=== PATIENT | female | born 1970 | race Caucasian/White ===

== ENCOUNTER 2017-11-11 15:16 | Emergency (ER) | payer MEDICAID, SELFPAY ==
[2017-11-11 15:18] VITALS: BP 123/73; PULSE 84; RESP 17; TEMP 36.6; O2SAT 96; BMI 35.8
--- NOTE | 2017-11-11 15:27 | EKG12_ITS ---
Test Reason : CP Blood Pressure : / mmHG Vent. Rate : 085 BPM Atrial Rate : 085 BPM P-R Int : 118 ms QRS Dur : 080 ms QT Int : 390 ms P-R-T Axes : 065 088 056 degrees QTc Int : 464 ms Normal sinus rhythm Low voltage QRS Borderline ECG Confirmed by ZULY WALTERS, JEFFREY ([id number]), photography editor RAFAEL SKINNER ([id number]) on 11/13/2017 1:22:00 PM Referred By: MARCELLE/MERRILL Confirmed By:JEFFREY CARUSO MD
--- NOTE | 2017-11-11 15:28 | ED.VISSUMM ---
- ER Visit Summary Date of Service: 11/11/17 Chief Complaint: Chest pain and headache History of Present Illness: The patient is a 47 F presenting for evaluation secondary chest pain headache and hypertension. Patient states that since yesterday she has been dealing with a headache and poorly controlled hypertension with blood pressures in the 180 systolic. Patient states that she woke up this morning and her blood pressure was also in the 180s. Patient states that she took her blood pressure medicines and then went back to sleep. She reports that since about 11:00 today she has had a continuous chest pain with radiation to her left arm. She states that associated with diaphoresis nausea and lightheadedness. There is no exacerbating or relieving factors associated with this. Patient states that she does have a history of coronary artery disease, most recent cardiac workup was within the last 2 years and she sees hospital attendant in [place]. Denies any recent infectious signs or symptoms. Review of systems otherwise negative. Physical Examination: Vital signs are within normal limits, patient is afebrile. General: Patient is well-nourished well-developed and in no acute distress. Head: Normocephalic, atraumatic Eyes: Pupils equal round and reactive bilaterally, extra occular motion intact bialterally ENT: Moist mucous membranes Neck: Supple, no lymphadenopathy, no JVD, no meningismus CVS: Heart regular rate and rhythm, no murmurs, rubs or gallops, radial pulses 2+ bilaterally Resp: Respirations nondistressed, lung sounds mild wheezing Abdomen: Soft, nontender, nondistended, no palpable masses, normal bowel sounds Back: Nontender Extremities: Nontender, atraumatic, active full range of motion, no peripheral edema Skin: warm, no rashes, no petechia Neuro: Alert and oriented x 4, CN 2-12 intact, no lateralizing neurological defecits Psyc: Normal affect Test Results: EKG shows a sinus rhythm [address] segments normal T waves and some artifact laterally. CBC chemistry troponin unremarkable. Chest x-ray negative. Delta troponin found to be negative. Emergency Department Course and Treatment: Patient presented for evaluation secondary chest pain. She had only had about 3 or 4 hours chest pain prior to arrival. Initial workup was found to be negative, she does have risk factors of diabetes and hypertension as well as smoking. Her symptoms seem rather atypical however, and she has had cardiac workup within the last 2 years so I believe that a second troponin will rule the patient out adequately. 3 hour troponin was performed and was found to be negative. At this point I believe the patient's pain not to be cardiac in that she can safely be discharged. Patient will follow up with her hospital attendant. All questions answered patient was discharged Disposition: Discharge Impression: 1 chest pain This note was generated with Vostu dictation software. It may contain incorrect words, spelling, and punctuation that were not noted in review of the chart prior to signing ED Disposition - Plan for ED Patient: Disposition: Home or Assisted Living Chief Complaint: Chest Pain Diagnosis: Chest pain Instructions: ED Chest Pain NonCardiac Referrals: Town Doctor,Out of [NON-STAFF] - Additional Instructions: Followup with your PCP
[2017-11-11] MEDS: Aspirin 81 MG TAB.CHEW 324 MG PO (15:35)
--- NOTE | 2017-11-11 15:35 | RAD_ITS ---
STUDY: X-RAY CHEST REASON FOR EXAM: Female, 47 years old. Chest pain. TECHNIQUE: PA and lateral views of the chest. COMPARISON: Comparison is made with prior examination dated March 26, 2016. FINDINGS: EKG electrodes are seen. Stable calcified granuloma in the right midlung. There is no demonstrated pleural abnormality. Normal size heart. Normal mediastinum and mark. Normal visualized pulmonary arteries. Normal visualized aortic arch and descending thoracic aorta. There is demineralization of the osseous structures. Normal visualized ribs, clavicles, and shoulders. There is no demonstrated abnormality of the visualized soft tissue structures of the upper abdomen. RAD/Chest PA and Lateral IMPRESSION: No acute abnormality is seen. Electronically Signed: Dwight Martinez MD at 16:00 EST Tel [phone], Service support ,
--- NOTE | 2017-11-11 15:35 | ED.DCSUM_ITS ---
- ER Visit Summary Date of Service: 11/11/17 Chief Complaint: Chest pain and headache History of Present Illness: The patient is a 47 F presenting for evaluation secondary chest pain headache and hypertension. Patient states that since yesterday she has been dealing with a headache and poorly controlled hypertension with blood pressures in the 180 systolic. Patient states that she woke up this morning and her blood pressure was also in the 180s. Patient states that she took her blood pressure medicines and then went back to sleep. She reports that since about 11:00 today she has had a continuous chest pain with radiation to her left arm. She states that associated with diaphoresis nausea and lightheadedness. There is no exacerbating or relieving factors associated with this. Patient states that she does have a history of coronary artery disease, most recent cardiac workup was within the last 2 years and she sees superintendent sanitation in [place]. Denies any recent infectious signs or symptoms. Review of systems otherwise negative. Physical Examination: Vital signs are within normal limits, patient is afebrile. General: Patient is well-nourished well-developed and in no acute distress. Head: Normocephalic, atraumatic Eyes: Pupils equal round and reactive bilaterally, extra occular motion intact bialterally ENT: Moist mucous membranes Neck: Supple, no lymphadenopathy, no JVD, no meningismus CVS: Heart regular rate and rhythm, no murmurs, rubs or gallops, radial pulses 2 + bilaterally Resp: Respirations nondistressed, lung sounds mild wheezing Abdomen: Soft, nontender, nondistended, no palpable masses, normal bowel sounds Back: Nontender Extremities: Nontender, atraumatic, active full range of motion, no peripheral edema Skin: warm, no rashes, no petechia Neuro: Alert and oriented x 4, CN 2-12 intact, no lateralizing neurological defecits Psyc: Normal affect Test Results: EKG shows a sinus rhythm [address] segments normal T waves and some artifact laterally. CBC chemistry troponin unremarkable. Chest x-ray negative. Delta troponin found to be negative. Emergency Department Course and Treatment: Patient presented for evaluation secondary chest pain. She had only had about 3 or 4 hours chest pain prior to arrival. Initial workup was found to be negative, she does have risk factors of diabetes and hypertension as well as smoking. Her symptoms seem rather atypical however, and she has had cardiac workup within the last 2 years so I believe that a second troponin will rule the patient out adequately. 3 hour troponin was performed and was found to be negative. At this point I believe the patient's pain not to be cardiac in that she can safely be discharged. Patient will follow up with her superintendent sanitation. All questions answered patient was discharged Disposition: Discharge Impression: 1 chest pain This note was generated with Kaleidoscope dictation software. It may contain incorrect words, spelling, and punctuation that were not noted in review of the chart prior to signing ED Disposition - Plan for ED Patient: Disposition: Home or Assisted Living Chief Complaint: Chest Pain Diagnosis: Chest pain Instructions: ED Chest Pain NonCardiac Referrals: Town Doctor,Out of [NON-STAFF] - Additional Instructions: Followup with your PCP
[2017-11-11 15:46] LABS: Absolute Lymphocyte Count 2.78 X10^3/ul (0.83-4.51); Absolute Neutrophil Count 5.9 X10^3/uL (2.0-7.7); Basophil# 0.04 X10^3/uL; Basophil% 0.4 % (0-1); Eosinophil# 0.12 X10^3/uL; Eosinophils% 1.2 % (0-5); Hematocrit 44.8 % (37-47); Hemoglobin 15.2 g/dl (12.0-15.0); Lymphocyte # 2.78 X10^3/ul (4.0); Lymphocyte % 28.9 % (19-41); Mean Corp Hgb Conc 33.9 g/gl (32-36); Mean Corpuscular Hgb 31.5 pg (27.0-32.0); Mean Corpuscular Volume 92.9 fL (81-99); Mean Platelet Vol. 10.5 fl (6.2-12.0); Monocyte# 0.76 X10^3/uL; Monocyte% 7.9 % (0-10); Neutrophil # 5.91 X10^3/uL (2.7-7.7); Neutrophil % 61.4 % (47-70); Platelet Count 242 K/mm3 (150-450); RBC Distribution Width CV 12.8 % (11.6-14.6); RBC Distribution Width SD 43.3 fl (35.1-43.9); Red Blood Count 4.82 M/mm3 (4.2-5.4); White Blood Count 9.6 K/mm3 (4.4-11.0)
[2017-11-11 15:50] LABS: POSITIVE COUNT NO; POSITIVE DIFFERENTIAL NO; POSITIVE MORPHOLOGY NO
[2017-11-11 16:10] LABS: Anion Gap 7 (5-15); BUN 8 mg/dL (7-18); BUN/Creat Ratio 11.8 RATIO (10-20); Calcium,Total 8.4 mg/dL (8.5-10.1); Chloride 106 mmol/L (98-107); Creatinine, Serum 0.68 mg/dL (0.55-1.02); EST Glomerular Filtration Rate 100 mL/min (>60); Est Glom Filt Rate - Afr Amer 121 mL/min (>60); Estimated Creatinine Clearance 89.27 ml/min; Glucose 111 mg/dL (74-106); Potassium 3.5 mmol/L (3.5-5.1); Sodium Level 142 mmol/L (136-145)
[2017-11-11 16:25] VITALS: BP 141/76; PULSE 82; RESP 21; O2SAT 95
[2017-11-11 19:41] VITALS: BP 143/88; PULSE 82; RESP 16; O2SAT 93
== END 2017-11-11 19:41 | disposition home or self-care (01) ==
PROVIDERS: Emergency Provider Emergency Medicine
DX: R07.9 Chest pain, unspecified (principal); I10 Essential (primary) hypertension; I25.10 Atherosclerotic heart disease of native coronary artery without angina pectoris; E11.9 Type 2 diabetes mellitus without complications; F17.200 Nicotine dependence, unspecified, uncomplicated; F41.9 Anxiety disorder, unspecified; F32.9 Major depressive disorder, single episode, unspecified; F20.9 Schizophrenia, unspecified; Z79.82 Long term (current) use of aspirin; Z79.84 Long term (current) use of oral hypoglycemic drugs; Z79.899 Other long term (current) drug therapy
CPT/HCPCS: 71046; 80048; 84484; 85025; 93005; 99285; A4216

== ENCOUNTER 2017-12-22 14:59 | Emergency (ER) | payer MEDICAID, SELFPAY ==
[2017-12-22 15:01] VITALS: BP 120/60; PULSE 86; RESP 16; TEMP 36.9; O2SAT 95; BMI 34.2
--- NOTE | 2017-12-22 15:15 | RAD_ITS ---
STUDY: X-RAY CHEST REASON FOR EXAM: Female, 47 years old. Hypotension. TECHNIQUE: Single AP portable view of the chest. COMPARISON: Comparison is made with prior study dated November 11, 2017. FINDINGS: Scattered calcified granulomas. There is no demonstrated pleural abnormality. Normal size heart. Normal mediastinum and mark. Normal visualized pulmonary arteries. Normal visualized aortic arch and descending thoracic aorta. Normal visualized thoracic spine. Normal visualized ribs, clavicles, and shoulders. There is no demonstrated abnormality of the visualized soft tissue structures of the upper abdomen. RAD/Chest 1 View (Portable) IMPRESSION: No acute abnormality is seen. Electronically Signed: Dwight Martinez MD at 15:41 EDT Tel [phone], Service support ,
--- NOTE | 2017-12-22 15:16 | EKG12_ITS ---
Test Reason : DIZZINESS Blood Pressure : / mmHG Vent. Rate : 078 BPM Atrial Rate : 078 BPM P-R Int : 130 ms QRS Dur : 086 ms QT Int : 410 ms P-R-T Axes : 073 078 063 degrees QTc Int : 467 ms Normal sinus rhythm Low voltage QRS Borderline ECG Confirmed by ISA WALTERS, LUCIANO ([id number]), communications editor RAFAEL SKINNER ([id number]) on 12/28/2017 2:45:41 PM Referred By: MAXIM Confirmed By:LUCIANO MOSS MD
--- NOTE | 2017-12-22 15:17 | ED.VISSUMM ---
- ER Visit Summary Date of Service: 12/22/17 Chief Complaint: Hypotension History of Present Illness: The patient is a 47 F presenting with low blood pressure and dizziness. She states that she was starting to feel lightheaded today. She fell to the floor. She did not pass out. She did not hit her head. She denies any injuries. She states she took her blood pressure and it was 92/35. She states she had her blood pressure medications adjusted in November per her frame straightener Dr. Shields in [facility]. She does not recall exactly how long ago. One of her prescription bottles is from end of October and one is from beginning of November. Her carvedilol was changed from 12.5 mg once a day to 12.5 mg twice a day. Her Imdur was increased from 20 mg to 30 mg once a day. She denies chest pain. She states she has had a cough for the past week. Denies fever or other complaints. Physical Examination: Vitals are stable. Blood pressure 120/60. Patient is afebrile. Alert no acute distress. HEENT exam is unremarkable. Neck is supple. Lungs are clear and equal bilaterally. Heart is regular rate and rhythm. Abdomen is soft nontender nondistended. Extremities are unremarkable. Skin is warm and dry. No focal neurologic deficit. Remainder of exam is unremarkable. Emergency Department Course and Treatment: Patient is given IV fluids. Orthostatic vitals are normal. She is able to ambulate in the ED without any dizziness. Chest x-ray shows no acute process. EKG is sinus rate 78 with no acute ischemic changes. CBC, chemistries unremarkable. Urinalysis unremarkable. Troponin is negative. Repeat blood pressure is 116/74. Discussed with Dr. Shields, patient is advised to change her blood pressure medications back to the original doses. She will take Coreg 12.5 mg once a day and Imdur 20 mg once a day. She is given a prescription for Imdur 20 mg. She is advised to follow-up with her frame straightener. Advised return to ED if worsening complaints. Disposition: Discharge home Impression: Hypotension with recent medication adjustment This note was generated with Syncplicityation software. It may contain incorrect words, spelling, and punctuation that were not noted in review of the chart prior to signing ED Disposition - Plan for ED Patient: Chief Complaint: Hypotension Referrals: Care Physician,No Primary [NON-STAFF] -
[2017-12-22 15:37] VITALS: BP 100/67; BP 103/61; BP 92/71; PULSE 82; PULSE 83; PULSE 86; O2SAT 94
[2017-12-22 15:37] LABS: Absolute Lymphocyte Count 2.41 X10^3/ul (0.83-4.51); Absolute Neutrophil Count 6.3 X10^3/uL (2.0-7.7); Basophil# 0.02 X10^3/uL; Basophil% 0.2 % (0-1); Hematocrit 44.7 % (37-47); Hemoglobin 14.9 g/dl (12.0-15.0); Lymphocyte # 2.41 X10^3/ul (4.0); Mean Corp Hgb Conc 33.3 g/gl (32-36); Mean Corpuscular Hgb 31.3 pg (27.0-32.0); Mean Corpuscular Volume 93.9 fL (81-99); Mean Platelet Vol. 10.5 fl (6.2-12.0); Monocyte% 8.3 % (0-10); Neutrophil # 6.28 X10^3/uL (2.7-7.7); Neutrophil % 65.3 % (47-70); Platelet Count 241 K/mm3 (150-450); RBC Distribution Width CV 12.5 % (11.6-14.6); RBC Distribution Width SD 43.1 fl (35.1-43.9); Red Blood Count 4.76 M/mm3 (4.2-5.4); White Blood Count 9.6 K/mm3 (4.4-11.0)
[2017-12-22] MEDS: 0.9% Normal Saline 1,000 ML 1000 ML IV (15:42)
[2017-12-22 15:50] LABS: Red Blood Cells-Urine 0 SEEN /hpf (0-5)
[2017-12-22 15:53] LABS: Color, Urine Yellow (Yellow); Glucose, Dipstick Normal (Normal); Ketone-Dipstick 5 mg/dl (Negative); Leukocyte Esterase-Dipstick 25 /ul (Negative); Nitrite-Dipstick Negative (Negative); Occult Blood-Urine Negative /ul (Negative); Protein-Dipstick 15 mg/dl (Negative); Urine Clarity Sl. Cloudy (Clear); Urine Urobilinogen 4 mg/dl (Normal)
[2017-12-22 15:57] LABS: Anion Gap 6 (5-15); BUN 8 mg/dL (7-18); BUN/Creat Ratio 9.8 RATIO (10-20); Calcium,Total 8.7 mg/dL (8.5-10.1); Chloride 106 mmol/L (98-107); Creatinine, Serum 0.81 mg/dL (0.55-1.02); EST Glomerular Filtration Rate 81 mL/min (>60); Est Glom Filt Rate - Afr Amer 97 mL/min (>60); Estimated Creatinine Clearance 74.94 ml/min; Glucose 102 mg/dL (74-106); Potassium 3.8 mmol/L (3.5-5.1); Sodium Level 140 mmol/L (136-145)
[2017-12-22 16:05] LABS: Bacteria RARE /hpf (None Seen); Mucous, Urine 2+ /hpf (<or=2+); Squamous Epithelial Cells - UA 10-25 SEEN /hpf (5-10); Urine Bilirubin Dipstick 1 mg/dL (Negative); White Blood Cells 0-5 SEEN /hpf (0-5)
[2017-12-22 16:11] LABS: POSITIVE COUNT NO; POSITIVE DIFFERENTIAL NO; POSITIVE MORPHOLOGY NO
--- NOTE | 2017-12-22 17:00 | ED.DEP ---
ED Disposition - Plan for ED Patient: Chief Complaint: Hypotension Instructions: ED Hypotension All Causes Prescriptions: Isosorbide Mononitrate 20 mg PO DAILY #30 tablet Referrals: Care Physician,No Primary [NON-STAFF] - Additional Instructions: Change BP medication back to original doses... Imdur 20mg once/day and Coreg 12.5mg once/day Follow up with Dr Shields.
[2017-12-22 17:23] VITALS: BP 113/69; PULSE 81; RESP 14; O2SAT 97
== END 2017-12-22 17:24 | disposition home or self-care (01) ==
PROVIDERS: Emergency Provider Emergency Medicine
DX: I95.9 Hypotension, unspecified (principal); Z79.899 Other long term (current) drug therapy; E11.9 Type 2 diabetes mellitus without complications; E78.00 Pure hypercholesterolemia, unspecified; F20.9 Schizophrenia, unspecified; Z72.0 Tobacco use; Z79.82 Long term (current) use of aspirin; Z79.4 Long term (current) use of insulin
CPT/HCPCS: 71045; 80048; 81001; 84484; 85025; 93005; 96360; 99285; J7030

== ENCOUNTER → 2017-12-28 21:47 | Outpatient (CLI) | payer MEDICAID, SELFPAY | DX: G47.33 Obstructive sleep apnea (adult) (pediatric) (principal) | CPT/HCPCS: 95810 ==

== ENCOUNTER 2018-01-10 16:41 | Emergency (ER) | payer MEDICAID, SELFPAY ==
[2018-01-10 16:43] VITALS: BP 92/68; PULSE 97; RESP 14; TEMP 36.6; O2SAT 95; BMI 35.0
[2018-01-10 16:46] VITALS: BP 104/65
--- NOTE | 2018-01-10 17:07 | RAD_ITS ---
STUDY: X-RAY CHEST REASON FOR EXAM: Female, 47 years old. Chest pain TECHNIQUE: Frontal view of the chest COMPARISON: 12/22/2017 FINDINGS: The lungs are clear. There are no pleural effusions. There is no pneumothorax. The heart is normal in size. The visualized osseous structures are within normal limits. RAD/Chest 1 View (Portable) IMPRESSION: No acute thoracic pathology. Electronically Signed: Bladimir Lyman, at 17:35 EDT Tel , Service support ,
--- NOTE | 2018-01-10 17:07 | EKG12_ITS ---
Test Reason : LOW BP Blood Pressure : / mmHG Vent. Rate : 089 BPM Atrial Rate : 089 BPM P-R Int : 124 ms QRS Dur : 086 ms QT Int : 390 ms P-R-T Axes : 073 086 060 degrees QTc Int : 474 ms Normal sinus rhythm Nonspecific T wave abnormality Abnormal ECG Confirmed by ISA WALTERS, LUCIANO ([id number]), web content editor RAFAEL SKINNER ([id number]) on 01/12/2018 3:32:33 PM Referred By: GABBY Confirmed By:LUCIANO MOSS MD
[2018-01-10] MEDS: 0.9% Normal Saline 1,000 ML 1000 ML IV (17:19)
[2018-01-10 17:27] LABS: Absolute Lymphocyte Count 2.32 X10^3/ul (0.83-4.51); Absolute Neutrophil Count 4.2 X10^3/uL (2.0-7.7); Basophil# 0.02 X10^3/uL; Basophil% 0.3 % (0-1); Eosinophil# 0.15 X10^3/uL; Eosinophils% 2.1 % (0-5); Hematocrit 46.6 % (37-47); Hemoglobin 15.7 g/dl (12.0-15.0); Lymphocyte # 2.32 X10^3/ul (4.0); Lymphocyte % 32.2 % (19-41); Mean Corp Hgb Conc 33.7 g/gl (32-36); Mean Corpuscular Hgb 31.5 pg (27.0-32.0); Mean Corpuscular Volume 93.6 fL (81-99); Mean Platelet Vol. 10.7 fl (6.2-12.0); Monocyte# 0.48 X10^3/uL; Monocyte% 6.7 % (0-10); Neutrophil # 4.23 X10^3/uL (2.7-7.7); Neutrophil % 58.6 % (47-70); POSITIVE COUNT NO; POSITIVE DIFFERENTIAL NO; POSITIVE MORPHOLOGY NO; Platelet Count 264 K/mm3 (150-450); RBC Distribution Width CV 12.6 % (11.6-14.6); RBC Distribution Width SD 42.6 fl (35.1-43.9); Red Blood Count 4.98 M/mm3 (4.2-5.4); White Blood Count 7.2 K/mm3 (4.4-11.0)
[2018-01-10 17:39] LABS: Anion Gap 8 (5-15); BUN 5 mg/dL (7-18); BUN/Creat Ratio 5.2 RATIO (10-20); Calcium,Total 8.6 mg/dL (8.5-10.1); Chloride 107 mmol/L (98-107); Creatinine, Serum 0.96 mg/dL (0.55-1.02); EST Glomerular Filtration Rate 66 mL/min (>60); Est Glom Filt Rate - Afr Amer 80 mL/min (>60); Estimated Creatinine Clearance 63.23 ml/min; Glucose 151 mg/dL (74-106); Potassium 3.4 mmol/L (3.5-5.1); Sodium Level 141 mmol/L (136-145)
[2018-01-10] MEDS: 0.9% Normal Saline 1,000 ML 150 ML IV (18:06)
--- NOTE | 2018-01-10 19:03 | ED.VISSUMM ---
- ER Visit Summary Date of Service: 01/10/18 Chief Complaint: Low blood pressure History of Present Illness: The patient is a 47 F with a history of hypertension, diabetes, high cholesterol, and schizophrenia. Patient states that her doctor has been decreasing her blood pressure medications recently as she does not need them. She states actually for the last several days she has not taken them at all as her blood pressure in the mornings been in the 120s systolic. This morning her blood pressure was 144/97 so she took 3 of her blood pressure medications, carvedilol, lisinopril, and isosorbide. Patient developed lightheadedness and dizziness a couple hours after taking her medications. She did feel lightheaded and fell at home. She did not pass out. She states when she took her blood pressure after falling it was 63/52. Patient denies chest pain or palpitations. Her primary care physician and paper cutting machine operator are both in [place]. Physical Examination: Vital signs on arrival include a blood pressure of 104/65, temperature 97.9, heart rate 94, respiratory rate 14, socks 95% on room air. At the time of my exam her systolic blood pressures in the 70s. Patient sitting upright in bed. She is in no acute distress. Head and neck examination reveals no external sign of trauma. Heart is regular rate and rhythm. Lung sounds are clear. Abdomen is soft nontender. Neuro exam is unremarkable. Test Results: CBC was normal white count with hemoglobin of 15.7. Chemistry studies are significant for potassium of 3.4 and glucose of 151. Her troponin is less than 0.02. EKG is sinus 89 with no sign of acute ischemia. Emergency Department Course and Treatment: Patient is given a liter of IV fluids followed by a rate of 150 cc/h. After her IV fluids blood pressures are in the 90s to low 100s systolic. Patient does not feel lightheaded or dizzy. Orthostatic vital signs are obtained and negative. At this time it is been nearly 12 hours since she took her medications. I advised her not to take her blood pressure medication anymore until she speaks with her paper cutting machine operator. She is to record her blood pressures daily as she has been doing. Treatment Plan: [] Disposition: Discharge Impression: Hypotension, improved This note was generated with LOGIC DEVICESation software. It may contain incorrect words, spelling, and punctuation that were not noted in review of the chart prior to signing ED Disposition - Plan for ED Patient: Disposition: Home or Assisted Living Chief Complaint: Hypotension Instructions: ED Hypotension All Causes Additional Instructions: Follow-up with your doctor tomorrow regarding your BP meds. Increase fluids. Return for worsening symptoms.
[2018-01-10 19:07] VITALS: BP 104/75; BP 95/66; BP 99/71; PULSE 78; PULSE 85; PULSE 88
[2018-01-10 19:08] VITALS: BP 95/66; PULSE 88; RESP 16; O2SAT 96
[2018-01-10 19:12] VITALS: BP 95/66; PULSE 80; RESP 14; O2SAT 94
== END 2018-01-10 19:12 | disposition home or self-care (01) ==
PROVIDERS: Emergency Provider Emergency Medicine
DX: I95.2 Hypotension due to drugs (principal); T44.7X5A Adverse effect of beta-adrenoreceptor antagonists, initial encounter; T46.4X5A Adverse effect of angiotensin-converting-enzyme inhibitors, initial encounter; T46.3X5A Adverse effect of coronary vasodilators, initial encounter; I10 Essential (primary) hypertension; E11.9 Type 2 diabetes mellitus without complications; E78.00 Pure hypercholesterolemia, unspecified; Y92.009 Unspecified place in unspecified non-institutional (private) residence as the place of occurrence of the external cause; Z72.0 Tobacco use; Z79.84 Long term (current) use of oral hypoglycemic drugs; Z79.899 Other long term (current) drug therapy
CPT/HCPCS: 71045; 80048; 84484; 85025; 93005; 96360; 96361; 99285; J7030; A4216

== ENCOUNTER 2018-02-24 18:50 | Emergency (ER) | payer MEDICAID, SELFPAY ==
--- NOTE | 2018-02-24 18:50 | DT_ITS ---
This patient was seen during an EMR downtime February 22, 2018 - March 01, 2018. This patient may have a combination of paper and electronic documentation or all paper documentation. All documentation is viewable within the e-chart portion of [employer] for each patient visit.
== END 2018-02-24 19:40 | disposition home or self-care (01) ==
LOC: ED 02-25 15:09
PROVIDERS: Emergency Provider Emergency Medicine; Family Provider Internal Medicine; PCP Internal Medicine
DX: J45.909 Unspecified asthma, uncomplicated (principal); H92.03 Otalgia, bilateral; E11.9 Type 2 diabetes mellitus without complications; I10 Essential (primary) hypertension; E78.00 Pure hypercholesterolemia, unspecified; F17.210 Nicotine dependence, cigarettes, uncomplicated; Z79.84 Long term (current) use of oral hypoglycemic drugs; Z79.899 Other long term (current) drug therapy
CPT/HCPCS: 99283

== ENCOUNTER 2018-02-27 17:53 | Emergency (ER) | payer MEDICAID, SELFPAY ==
--- NOTE | 2018-02-27 17:53 | DT_ITS ---
This patient was seen during an EMR downtime February 22, 2018 - March 01, 2018. This patient may have a combination of paper and electronic documentation or all paper documentation. All documentation is viewable within the e-chart portion of [facility] for each patient visit.
--- NOTE | 2018-02-27 19:00 | RAD_ITS ---
STUDY: X-RAY CHEST REASON FOR EXAM: Female, 47 years old. Cough TECHNIQUE: PA and lateral views of the chest. COMPARISON: None. FINDINGS: There are nonspecific reticular opacities within the mid and lower lungs. There is a 8 mm nodular projecting over the right midlung. Normal size heart. Normal mediastinum and mark. Normal visualized pulmonary arteries. Normal visualized aortic arch and descending thoracic aorta. Normal visualized thoracic spine. Normal visualized ribs, clavicles, and shoulders. There is no demonstrated abnormality of the visualized soft tissue structures of the upper abdomen. RAD/Chest PA and Lateral IMPRESSION: Nonspecific bilateral opacities may be secondary to underlying edema and/or an infectious process. 8 mm nodular opacity within the right midlung this may be secondary to a confluence of shadows, recommend follow-up chest radiograph in 6-[address] for further characterization. Electronically Signed: Patria Garay MD at 19:41 EDT Tel , Service support ,
--- NOTE | 2018-03-17 00:55 | ED.VISSUMM ---
- ER Visit Summary Date of Service: 02/27/18 Chief Complaint: Cough History of Present Illness: The patient is a [address] Walker in [place]. She reports that she has a cough began approximately 1 week ago. Is nonproductive. She has had subjective fever and chills. She reports that she has had mild wheezing that is not relieved with her inhaler. Patient reports that she was in the emergency department 4 days ago and was diagnosed with asthmatic bronchitis and was placed on doxycycline, prednisone, Tessalon Perles. Chest x-ray was not obtained. Physical Examination: Vitals: Stable. Afebrile. General: Well-nourished and well-developed. Head: Normocephalic atraumatic. Neck: Supple, no lymphadenopathy. No JVD. Nontender. Cardiovascular: Regular rate and rhythm. No murmurs. Respiratory: No respiratory distress. Mild wheezing bilaterally with good air movement. Abdominal: Soft, nontender, nondistended, normal bowel sounds. No guarding, rebound, or peritoneal signs. Back: Nontender. Extremities: Nontender, no edema. Skin: Normal color, no rash. Neurologic: Alert and oriented ?3. Cranial nerves II through XII are intact. Normal strength and sensation. Psych: Normal affect. Test Results: Chest x-ray is read by radiology shows an 8 mm nodule opacity in right mid lung. They question the possibility of bilateral infiltrates. I have reviewed the chest x-ray myself and I do not see anything that would suggest that she has pneumonia. Emergency Department Course and Treatment: Patient was treated albuterol and Atrovent aerosols and feels much improved. Treatment Plan: I had a prolonged discussion the patient about the nodule on her chest x-ray. She reports that she sees a clerk to justice and this is being followed. She will be discharged instructions to continue her doxycycline, prednisone, Tessalon Perles. Follow up with her clerk to justice in 3-5 days if not improving. Return to the emergency department for any worsening symptoms. Disposition: To home in improved and stable condition. Impression: 1. URI. 2. 8 mm nodule right mid lung. This note was generated with Control[employer]ation software. It may contain incorrect words, spelling, and punctuation that were not noted in review of the chart prior to signing ED Disposition - Plan for ED Patient: Disposition: Home or Assisted Living
--- NOTE | 2018-03-17 01:02 | ED.DCSUM_ITS ---
- ER Visit Summary Date of Service: 02/27/18 Chief Complaint: Cough History of Present Illness: The patient is a [address] Walker in [place]. She reports that she has a cough began approximately 1 week ago. Is nonproductive. She has had subjective fever and chills. She reports that she has had mild wheezing that is not relieved with her inhaler. Patient reports that she was in the emergency department 4 days ago and was diagnosed with asthmatic bronchitis and was placed on doxycycline, prednisone , Tessalon Perles. Chest x-ray was not obtained. Physical Examination: Vitals: Stable. Afebrile. General: Well-nourished and well-developed. Head: Normocephalic atraumatic. Neck: Supple, no lymphadenopathy. No JVD. Nontender. Cardiovascular: Regular rate and rhythm. No murmurs. Respiratory: No respiratory distress. Mild wheezing bilaterally with good air movement. Abdominal: Soft, nontender, nondistended, normal bowel sounds. No guarding, rebound, or peritoneal signs. Back: Nontender. Extremities: Nontender, no edema. Skin: Normal color, no rash. Neurologic: Alert and oriented ?3. Cranial nerves II through XII are intact. Normal strength and sensation. Psych: Normal affect. Test Results: Chest x-ray is read by radiology shows an 8 mm nodule opacity in right mid lung. They question the possibility of bilateral infiltrates. I have reviewed the chest x-ray myself and I do not see anything that would suggest that she has pneumonia. Emergency Department Course and Treatment: Patient was treated albuterol and Atrovent aerosols and feels much improved. Treatment Plan: I had a prolonged discussion the patient about the nodule on her chest x-ray. She reports that she sees a technical fellow and this is being followed. She will be discharged instructions to continue her doxycycline, prednisone, Tessalon Perles. Follow up with her technical fellow in 3-5 days if not improving. Return to the emergency department for any worsening symptoms. Disposition: To home in improved and stable condition. Impression: 1. URI. 2. 8 mm nodule right mid lung. This note was generated with AB Tastyation software. It may contain incorrect words, spelling, and punctuation that were not noted in review of the chart prior to signing ED Disposition - Plan for ED Patient: Disposition: Home or Assisted Living
== END 2018-02-27 20:10 | disposition home or self-care (01) ==
LOC: ED 02-28 15:06
PROVIDERS: Emergency Provider Emergency Medicine
DX: J06.9 Acute upper respiratory infection, unspecified (principal); R91.1 Solitary pulmonary nodule
CPT/HCPCS: 71046; 94640; 99282

== ENCOUNTER 2018-07-10 18:18 | Emergency (ER) | payer MEDICAID, SELFPAY ==
[2018-07-10 18:19] VITALS: BP 151/83; PULSE 90; RESP 15; TEMP 36.3; O2SAT 95; BMI 30.2
--- NOTE | 2018-07-10 18:49 | RAD_ITS ---
STUDY: X-RAY - RIGHT FOOT CLINICAL: Female, 47 years old. Right foot pain; gout TECHNIQUE: 3 view(s) of the foot. # of Images: 3 COMPARISON: None. FINDINGS: Normal talus, calcaneus, and tarsal bones. Normal visualized subtalar, talonavicular, calcaneocuboid, tarsal and tarsometatarsal articulations. Normal metatarsi. There is degenerative arthrosis of the metatarsophalangeal joint of the hallux . No evidence of erosions or gouty tophi. Normal tibial and fibular sesamoid bones. Normal interphalangeal joint of the great toe. Normal phalanges of the great toe. Normal second through fifth metatarsophalangeal joints. Normal interphalangeal joints and phalanges of the lesser toes. The soft tissue structures are unremarkable. RAD/Foot min 3 Views IMPRESSION: Mild degenerative change without evidence of erosions or gouty tophi. No acute fracture. Electronically Signed: John Harris DO at 19:05 EDT Tel , Service support ,
--- NOTE | 2018-07-10 19:35 | ED.VISSUMM ---
- ER Visit Summary Date of Service: 07/10/18 Chief Complaint: Right foot pain History of Present Illness: The patient is a 47 F who presents with right foot pain. It began 3 days ago. She has a history of gout. She saw a stylist assistant yesterday and was diagnosed with gout. She was prescribed which she believes to be an anti-inflammatory but she cannot remember the name of the medication. She took 2 doses but states it is not helping. She presented here for pain control. No fevers chest pain shortness of breath. No history of trauma or injury. Physical Examination: Afebrile vitals are unremarkable Moist mucous members Heart regular rate and rhythm Lungs are clear Patient does have pain on palpation over the medial right foot with no erythema or edema she is neurovascularly intact with brisk capillary refill normal sensation Test Results: Foot x-ray shows mild degenerative changes. Emergency Department Course and Treatment: Patient with the exception of tenderness has a normal examination of the foot. I do not appreciate any erythema or edema. She has active full range of motion. However she does have a history of gout and saw her stylist assistant yesterday who thought that this was acute gout. We will give her a prescription for tramadol for acute pain control. She understands to return for new or worse. She was discharged. Treatment Plan: [] Disposition: Discharge Impression: Right foot pain This note was generated with [employer] dictation software. It may contain incorrect words, spelling, and punctuation that were not noted in review of the chart prior to signing ED Disposition - Plan for ED Patient: Chief Complaint: Other, Pain/Inj Referrals: [facility] Doctor,Out of [Primary Care Provider] -
--- NOTE | 2018-07-10 19:37 | ED.DEP ---
ED Disposition - Plan for ED Patient: Chief Complaint: Other, Pain/Inj Instructions: ED Arthritis Gout Prescriptions: traMADol [Ultram] 50 mg PO Q6H PRN 3 Days #12 tab PRN Reason: Pain Referrals: [facility],Out of [Primary Care Provider] -
[2018-07-10 20:03] VITALS: PULSE 84; RESP 22; O2SAT 99
== END 2018-07-10 20:05 | disposition home or self-care (01) ==
LOC: ED 19:05
PROVIDERS: Emergency Provider Emergency Medicine
DX: M79.671 Pain in right foot (principal); M10.9 Gout, unspecified; E11.9 Type 2 diabetes mellitus without complications; I10 Essential (primary) hypertension; E78.00 Pure hypercholesterolemia, unspecified; Z72.0 Tobacco use; Z79.4 Long term (current) use of insulin; Z79.82 Long term (current) use of aspirin; Z79.891 Long term (current) use of opiate analgesic; Z79.899 Other long term (current) drug therapy
CPT/HCPCS: 73630; 99282

== ENCOUNTER 2018-07-31 15:28 | Emergency (ER) | payer MEDICAID, SELFPAY ==
[2018-07-31 15:28] VITALS: BP 150/81; PULSE 90; RESP 16; TEMP 36.3; O2SAT 97; BMI 33.8
--- NOTE | 2018-07-31 15:54 | ED.VISSUMM ---
- ER Visit Summary Date of Service: 07/31/18 Chief Complaint: Cough and sinus pain History of Present Illness: The patient is a 47 F presenting for evaluation secondary to cough and sinus pain. Patient reports that since yesterday she has had an onset of sinus pain, green nasal drainage, and a cough that is productive of green sputum. Patient reports it has been associated with a fever as high as 101.6 at home. Is been associated with 6 episodes of loose diarrhea today, she denies any nausea or vomiting associated with this. Patient does state that she has sick contacts in children and her family that recently were diagnosed as having sinus infections and were placed on antibiotics. She does have an underlying history of asthma. Physical Examination: Vital signs within normal limits. Well-nourished female no acute distress. Sinus tenderness to percussion bilaterally both in the frontal and maxillary sinuses. There is erythema and swollen nasal turbinates on inspection of the nose. Oropharynx is clear and normal. Neck is supple. Heart regular rate and rhythm. Lungs sounds showed evidence of wheezes throughout the lung chicas without any asymmetric breath sounds. Remainder of physical otherwise unremarkable. Test Results: Rapid flu found to be negative Emergency Department Course and Treatment: Patient presented secondary to cough. Patient symptoms of only been going on for about 24 hours she does not meet any sort of criteria for bacterial sinusitis. She has symmetric breath sounds a do not believe that x-ray is indicated as she also has normal vital signs. She was given a breathing treatment in the emergency department as well as Afrin. Her flu swab is negative. Patient will be placed on a course of prednisone for asthma exacerbation, and recommended to use decongestants for her sinusitis. She will follow-up with primary care. Disposition: Discharge Impression: 1. Viral sinusitis 2. Asthma exacerbation This note was generated with [employer] dictation software. It may contain incorrect words, spelling, and punctuation that were not noted in review of the chart prior to signing ED Disposition - Plan for ED Patient: Disposition: Home or Assisted Living Chief Complaint: Cold Sx Diagnosis: Viral sinusitis, Asthma exacerbation Instructions: ED Bronchitis Asthmatic, ED Upper Resp Infec No Abx Tx Prescriptions: Prednisone [Deltasone] 60 mg PO DAILY #15 tab Referrals: [facility] Doctor,Out of [Primary Care Provider] - 3-5 Days if not improving
[2018-07-31] MEDS: Ipratropium/Albuterol Sulfate 3 ML AMPUL.NEB INHALATION (15:55)
[2018-07-31 15:56] VITALS: PULSE 68; RESP 20
[2018-07-31] MEDS: Oxymetazoline 0.05% 1 SPRAY SPRAY.BTL 2 SPRAY NASAL (16:10)
--- NOTE | 2018-07-31 16:48 | ED.RN ---
DISCHARGE INSTRUCTIONS GIVEN TO AND REVIEWED WITH PATIENT, PATIENT DENIES QUESTIONS OR CONCERNS AND VOICES UNDERSTANDING OF DISCHARGE INSTRUCTIONS. PT AMBULATES OUT OF ROOM WITHOUT DIFFICULTY.
== END 2018-07-31 16:48 | disposition home or self-care (01) ==
LOC: ED 16:16
PROVIDERS: Emergency Provider Emergency Medicine
DX: J45.901 Unspecified asthma with (acute) exacerbation (principal); J32.1 Chronic frontal sinusitis; J32.0 Chronic maxillary sinusitis; B97.89 Other viral agents as the cause of diseases classified elsewhere; E11.9 Type 2 diabetes mellitus without complications; I10 Essential (primary) hypertension; E78.00 Pure hypercholesterolemia, unspecified; Z72.0 Tobacco use; Z79.51 Long term (current) use of inhaled steroids; Z79.82 Long term (current) use of aspirin; Z79.4 Long term (current) use of insulin; Z79.52 Long term (current) use of systemic steroids; Z79.899 Other long term (current) drug therapy
CPT/HCPCS: 87804; 94640; 99282

== ENCOUNTER 2018-09-18 00:03 | Emergency (ER) | payer MEDICAID, SELFPAY ==
[2018-09-18] VITALS (8 sets, daily range): BP systolic 114–142; BP diastolic 71–91; PULSE 75–88; RESP 16; TEMP 36.6; O2SAT 93–98; BMI 35.4
--- NOTE | 2018-09-18 00:29 | CT_ITS ---
STUDY: CT BRAIN WITHOUT CONTRAST REASON FOR EXAM: Female, 47 years old. Headache and left facial tingling RADIATION DOSAGE (If Supplied By Facility): CTDIvol = ( 44.99 ) mGy, DLP = ( 812.98 ) mGycm TECHNIQUE: Transaxial CT imaging of the brain was performed without administration of intravenous contrast material. Individualized dose optimization techniques were used for this CT. COMPARISON: 10/04/2012 FINDINGS: Normal soft tissue structures. Normal calvarium. Normal size ventricles and extra-axial spaces for the patient's age. Normal white matter tracts of the cerebral hemispheres. Normal basal ganglia and thalami. Normal brainstem. Normal cerebellum. There is no intracranial hemorrhage. There are no findings of an acute ischemic infarction. Normal visualized paranasal sinuses. CT/Brain/Head without Contrast IMPRESSION: Normal unenhanced CT scan of the brain. Electronically Signed: Juaquin Chin MD at 2:43 EST Tel , Service support ,
--- NOTE | 2018-09-18 00:29 | EKG12_ITS ---
Test Reason : Blood Pressure : / mmHG Vent. Rate : 079 BPM Atrial Rate : 079 BPM P-R Int : 126 ms QRS Dur : 088 ms QT Int : 426 ms P-R-T Axes : 073 085 061 degrees QTc Int : 488 ms Normal sinus rhythm Low voltage QRS Prolonged QT Abnormal ECG Confirmed by ZULY WALTERS, JEFFREY ([id number]), newspaper editor managing RAFAEL SKINNER ([id number]) on 09/20/2018 12:56:24 PM Referred By: JOAQUIN Confirmed By:JEFFREY CARUSO MD
[2018-09-18 00:56] LABS: Bedside Glucose 95 mg/dL (70-110)
[2018-09-18 01:01] LABS: Absolute Lymphocyte Count 2.41 X10^3/ul (0.83-4.51); Absolute Neutrophil Count 3.3 X10^3/uL (2.0-7.7); Basophil# 0.02 X10^3/uL; Basophil% 0.3 % (0-1); Eosinophils% 1.5 % (0-5); Hematocrit 39.3 % (37-47); Hemoglobin 13.3 g/dl (12.0-15.0); Lymphocyte # 2.41 X10^3/ul (4.0); Lymphocyte % 36.9 % (19-41); Mean Corp Hgb Conc 33.8 g/gl (32-36); Mean Corpuscular Hgb 31.4 pg (27.0-32.0); Mean Corpuscular Volume 92.9 fL (81-99); Mean Platelet Vol. 10.8 fl (6.2-12.0); Monocyte# 0.66 X10^3/uL; Monocyte% 10.1 % (0-10); Neutrophil # 3.34 X10^3/uL (2.7-7.7); Platelet Count 213 K/mm3 (150-450); RBC Distribution Width CV 12.5 % (11.6-14.6); RBC Distribution Width SD 41.8 fl (35.1-43.9); Red Blood Count 4.23 M/mm3 (4.2-5.4); White Blood Count 6.5 K/mm3 (4.4-11.0)
[2018-09-18 01:02] LABS: POSITIVE COUNT NO; POSITIVE DIFFERENTIAL NO; POSITIVE MORPHOLOGY NO
[2018-09-18 01:05] LABS: International Normalized Ratio 1.1; Prothrombin Time (Protime)PT. 13.7 SECONDS (11.7-14.9)
[2018-09-18 01:06] LABS: Partial Thromboplast Time 32.3 Seconds (24.1-36.2)
[2018-09-18 01:14] LABS: Anion Gap 6 (5-15); BUN 9 mg/dL (7-18); BUN/Creat Ratio 12.6 RATIO (10-20); Calcium,Total 8.2 mg/dL (8.5-10.1); Chloride 106 mmol/L (98-107); Creatinine, Serum 0.71 mg/dL (0.55-1.02); EST Glomerular Filtration Rate 93 mL/min (>60); Est Glom Filt Rate - Afr Amer 113 mL/min (>60); Glucose 88 mg/dL (74-106); Potassium 3.4 mmol/L (3.5-5.1); Sodium Level 142 mmol/L (136-145)
--- NOTE | 2018-09-18 01:15 | RAD_ITS ---
STUDY: X-RAY CHEST REASON FOR EXAM: Female, 47 years old. Tingling of face and hypertension TECHNIQUE: Single frontal view of the chest. COMPARISON: 02/27/2018, 03/26/2016 FINDINGS: Right midlung atelectasis. Stable nodular density in the right midlung. There is no demonstrated pleural abnormality. Normal size heart. Normal mediastinum and mark. Normal visualized pulmonary arteries. Normal visualized aortic arch and descending thoracic aorta. Normal visualized thoracic spine. Normal visualized ribs, clavicles, and shoulders. There is no demonstrated abnormality of the visualized soft tissue structures of the upper abdomen. RAD/Chest 1 View IMPRESSION: Right midlung atelectasis. Stable nodular density in the right midlung. This is stable compared to exam dated 03/26/2016 and is likely benign. Electronically Signed: Juaquin Chin MD at 2:45 EST Tel , Service support ,
--- NOTE | 2018-09-18 02:51 | ED.VISSUMM ---
- ER Visit Summary Date of Service: 09/18/18 Chief Complaint: High blood pressure History of Present Illness: The patient is a 47 F who presents with chief complaint of high blood pressure. She has been running high for the last 3 days. She states her highest reading at home was 168/110. She states that about 9 PM about 3 hours before presentation here she also developed left facial droop and left facial tingling. The facial droop has since resolved but she does still have some tingling. She was concerned she may be having a stroke. No extremity weakness or paresthesias. No speech difficulty. No history of prior similar symptoms. Physical Examination: Afebrile blood pressure 142/91 vitals otherwise normal Moist mucous membranes Heart regular rate and rhythm Jugular clear to auscultation Abdomen soft NIH stroke scale is 1 due to reported decreased sensation to light touch of the left face she has normal strength and sensation of the extremities clear speech she does not have any facial droop at this time of my exam Test Results: EKG shows normal sinus rhythm at a rate of 79. Labs notable for potassium 3.4. Normal coagulation studies, negative troponin. Chest x-ray shows right mid lung atelectasis and stable nodular density. CT of the head is normal. Emergency Department Course and Treatment: Due to patient's report of transient left facial droop and tingling with risk factors including diabetes hypertension hyperlipidemia and smoking I do feel she needs admitted for further stroke/TIA workup. Treatment Plan: [] Disposition: Admit Impression: Headache Transient left facial droop This note was generated with [employer] dictation software. It may contain incorrect words, spelling, and punctuation that were not noted in review of the chart prior to signing ED Disposition - Plan for ED Patient: Chief Complaint: Hypertension Referrals: Maxwell Mackey MD [Primary Care Provider] -
--- NOTE | 2018-09-18 03:01 | ED.DEP ---
ED Disposition - Plan for ED Patient: Chief Complaint: Hypertension Instructions: ED Transient Ischemic Attack Referrals: Maxwell Mackey MD [Primary Care Provider] -
== END 2018-09-18 03:14 | disposition home or self-care (01) ==
PROVIDERS: Emergency Provider Emergency Medicine; Family Provider Family Medicine; PCP Family Medicine
DX: R51 Headache (principal); R29.810 Facial weakness; F17.200 Nicotine dependence, unspecified, uncomplicated
CPT/HCPCS: 70450; 71045; 80048; 82962; 84484; 85025; 85610; 85730; 93005; 99285; A4216

== ENCOUNTER → 2018-11-24 08:20 | Outpatient (CLI) | payer MEDICAID, SELFPAY ==
[2018-11-24 08:17] VITALS: BMI 35.4
--- NOTE | 2018-11-24 08:22 | RAD_ITS ---
STUDY: X-RAY - LEFT KNEE REASON FOR EXAM: Female, 48 years old. Status post fall 2 weeks ago. Difficulty bending the knee. TECHNIQUE: 4 view(s) of the knee. COMPARISON: None. FINDINGS: Normal visualized distal femur. Normal visualized proximal tibia and fibula. Normal proximal tibiofibular articulation. Normal medial femorotibial compartment. Normal lateral femorotibial compartment. There is mild degenerative arthrosis of the patellofemoral articulation. There is a soft tissue prominence in the suprapatellar region suggesting a small volume joint effusion. The soft tissue structures are unremarkable. RAD/Knee 4 or More Views IMPRESSION: Very mild degenerative changes. Small joint effusion. No demonstrated fracture, dislocation, or destructive osseous lesion. Electronically Signed: Laith Bucio MD at 7:57 EST , Service support ,
== END ==
PROVIDERS: Family Provider Family Medicine; PCP Family Medicine; Referring Provider Physician Assistant; Visit Provider Physician Assistant
DX: M25.562 Pain in left knee (principal)
CPT/HCPCS: 73564

== ENCOUNTER → 2018-12-01 06:55 | Outpatient (CLI) | payer MEDICAID, SELFPAY ==
[2018-11-24 08:21] VITALS: BMI 34.5
--- NOTE | 2018-12-01 06:57 | MRI_ITS ---
STUDY: MRI LEFT KNEE REASON FOR EXAM: Female, 48 years old. Left knee pain and injury over a month ago. Medial pain. TECHNIQUE: Standardized fat and water weighted pulse sequences were obtained in all 3 orthogonal planes. COMPARISON: None. FINDINGS: There is a horizontal tear of the medial meniscus posterior horn. There is thinning of the anterior horn without apparent tear. There is a region of focal greater than 50% thickness articular cartilage loss of the medial femorotibial compartment. Otherwise, the articular cartilages normal in appearance. Normal medial femoral condyle and tibial plateau. Normal medial collateral ligamentous complex (MCL). Normal distal semimembranosus, gracilis and semitendinosus tendons. Normal lateral meniscus. Normal hyaline cartilage of the lateral femorotibial compartment. Normal lateral femoral condyle and tibial plateau. Normal proximal tibiofibular articulation. Normal lateral collateral (fibular) ligament. Normal popliteus tendon. Normal biceps femoris tendon. Normal anterior cruciate ligament (ACL). Normal posterior cruciate ligament (PCL). Normal congruent patellofemoral articulation. Normal hyaline cartilage of the patellofemoral compartment. Normal medial and lateral patellar retinaculum. Normal quadriceps tendon. Normal patellar tendon. Normal Hoffa's fat pad. There is no joint effusion. There is mild cutaneous edema along the anterior knee soft tissues. There is a small Solis's cyst noted. The soft tissues are unremarkable. The otherwise visualized osseous structures are unremarkable. MRI/Lower Ext Joint Only (Routine) IMPRESSION: Horizontal tear of the medial meniscus posterior horn with a focal region of articular cartilage loss in the medial femorotibial compartment. Small Solis's cyst. Electronically Signed: César Payton, at 14:06 EDT Tel , Service support ,
== END ==
PROVIDERS: Family Provider Family Medicine; PCP Family Medicine; Referring Provider Physician Assistant; Visit Provider Physician Assistant
DX: M23.92 Unspecified internal derangement of left knee (principal)
CPT/HCPCS: 73721

== ENCOUNTER 2018-12-21 07:50 | Day surgery (SDC) | payer MEDICAID, SELFPAY ==
[2018-12-06 08:20] VITALS: BMI 34.5
[2018-12-21 08:12] VITALS: BP 129/83; PULSE 73; RESP 14; TEMP 36.4; O2SAT 93; BMI 33.7
[2018-12-21 08:46] LABS: Bedside Glucose 101 mg/dL (70-110)
[2018-12-21] MEDS: Cefazolin 2 GM in 0.9% Normal Saline 100 ML IV (10:13)
[2018-12-21] MEDS: Bupiv/Epi 0.5% Mpf 30 ML Vial (10:34)
[2018-12-21] MEDS: MethylPREDNISolone Acetate 80 MG/ML Vial (10:47)
[2018-12-21] MEDS: Morphine 4 MG/ML Syringe (10:47)
[2018-12-21] MEDS: Bupivacaine Mpf 0.5% 30 ML VIAL (10:48)
[2018-12-21 11:05] VITALS: BP 115/65; BP 129/83; PULSE 88; RESP 16; TEMP 36.1; O2SAT 95
--- NOTE | 2018-12-21 11:05 | DCINST_ITS ---
Discharge Diet: No Restrictions May shower in (days): 2 Additional Activity Instructions:: Ice and elevate next 72 hours .keep dressing on clean and dry for 48 hours then may remove begin showering daily but do not submerge in tub or pool. After shower may apply Band-Aids . Encourage knee range of motion weightbearing as tolerated, use crutches until confident in knee then may discontinue. No strenuous activity. When not ambulating keep iced and elevated next 72 hours. Allergies/Adverse Reactions: Allergies divalproex sodium [From Depakote] Allergy (Intermediate, Verified 12/14/18 09:55) Rash Penicillins Allergy (Intermediate, Verified 12/14/18 09:55) Rash amoxicillin trihydrate [From Augmentin] Allergy (Verified 12/14/18 09:55) Unknown potassium clavulanate [From Augmentin] Allergy (Verified 12/14/18 09:55) Unknown ranitidine HCl [From Zantac] Allergy (Verified 12/14/18 09:55) Unknown codeine Adverse Reaction (Intermediate, Verified 12/14/18 09:55) Nausea and vomiting hydrocodone [From Vicodin] Adverse Reaction (Intermediate, Verified 12/14/18 09:55) Nausea and vomiting isosorbide Adverse Reaction (Intermediate, Verified 12/14/18 09:55) headache linagliptin [From Tradjenta] Adverse Reaction (Intermediate, Verified 12/14/18 09:55) Vomiting Medications to take at Discharge Metformin HCl [Glucophage] 1,000 mg PO BID 03/26/16 Paliperidone Palmitate [Invega Sustenna] 849 mg IM QMONTH 03/26/16 Atorvastatin Calcium 80 mg PO QHS 12/22/17 Benztropine [Cogentin] 2 mg PO DAILY 12/22/17 albuterol sulfate HFA 90 mcg/actuation aerosol inhaler 2 puff INHALATION Q6H PRN 07/19/18 Fluphenazine HCl [Prolixin] 5 mg PO QHS 12/14/18 Omeprazole 40 mg PO DAILY 12/14/18 Paliperidone [Invega] 6 mg PO DAILY 12/14/18 Valsartan [Diovan] 80 mg PO DAILY 12/14/18 buPROPion XL [Wellbutrin Xl] 150 mg PO BID 12/14/18 Oxycodone HCl/Acetaminophen [Percocet 5/325] 1 - 2 tablet PO Q4H PRN PRN 5 Days #40 tablet 12/21/18 The following prescriptions were given: Oxycodone HCl/Acetaminophen [Percocet 5/325] 1 - 2 tablet PO Q4H PRN PRN 5 Days #40 tablet PRN Reason: Pain Primary Care Physician: Maxwell Mackey MD [Primary Care Provider] - Test Results: Test results from this visit will be discussed in further detail at your follow- up appointment, if applicable. Please Follow Up With: Yasir Guerrero DO - 2 wks
--- NOTE | 2018-12-21 11:09 | OP.PCM_ITS ---
Report of Operation Date of Procedure: 12/21/18 Description of Surgical Findings:: Preop diagnosis: Left knee complex medial meniscal tear Postoperative diagnosis: Same+ grade 3 cartilage wear posterior aspect medial femoral condyle and grade 3-4 of the trochlea Procedure: Left knee arthroscopic partial medial meniscectomy , chondroplasty medial femoral condyle and trochlea Anesthesia: General Estimated blood loss: 5 mL Tourniquet time: 18 minutes 300 mmHg Complications: none Indication for procedure: This is a 48-year-old female patient with ongoing mechanical symptoms who did have MRI evidence of medial meniscus tear and arthritis did wish to proceed with an elective arthroscopic surgery to attempt to alleviate the symptoms. Risk benefits and alternatives of the procedure were reviewed including risk of bleeding infection nerve artery tissue damage need for further surgery continued pain and expected postoperative course. Procedure: The patient was met in the preoperative holding area. The operative extremity was identified by both patient and physician and family and marked. Patient was brought back to the operating room on a wheeled cart and transferred to the operating table in the supine position. Anesthesia was started. A well- padded tourniquet was placed on the operative extremity. A lower extremity leg tolentino was secured to the operative extremity. The contralateral extremity was well-padded and the end of the bed was flexed to 90 degrees. The patient was prepped and draped in the usual sterile fashion. A timeout was called to ensure the proper patient, procedure, and extremity were being contemplated. 0.5% Marcaine with epinephrine was injected into the planned incisional areas under the skin only. An Esmarch was used to exsanguinate the extremity and the tourniquet was inflated. An 11 blade scalpel was used to make a stab incision in the anterior lateral portal. The arthroscope was inserted into the intercondylar notch and inflow and outflow tubes were attached. Arthroscopic visualization began. The medial compartment was entered. An 18-gauge spinal needle was used to establish the placement for anterior medial portal. An 11 blade scalpel was used to make a stab incision. Blunt probe was inserted followed by a meniscal probe. Immediately there was noted to be complex tearing of the posterior horn and body of the medial meniscus with the use of a 4.2 shaver a partial medial meniscectomy was performed was also noted to be loose cartilage flaps of the posterior aspect of the medial femoral condyle cartilage this was debrided to a stable rim the ACL was found to be intact. The lateral compartment was entered there was no meniscal or cartilage pathology . The arthroscope was switched to the medial portal to complete the procedure. The medial and lateral gutters were inspected and were free of loose bodies. The patellofemoral joint was inspected did show grade 3-4 changes of the trochlea chondroplasty was performed at the rim. There was good patellar tracking. The knee was thoroughly irrigated and drained. An intra-articular injection with 5 cc 0.5% Marcaine plain 4 mg of morphine and 40 mg of Depo-Medrol was injected intra-articularly. The arthroscope was removed the portals were closed with 3-0 nylon arthroscopic stitches. Followed by Xeroform 4 x 4's ABDs web roll and an Jose Francisco wrap. The tourniquet was let down and the drapes were removed. All counts were correct. The patient was brought back to the PACU in stable condition.
[2018-12-21 11:15] VITALS: BP 109/65; BP 129/83; PULSE 82; RESP 16; O2SAT 96
[2018-12-21 11:21] LABS: Bedside Glucose 98 mg/dL (70-110)
[2018-12-21 11:30] VITALS: BP 113/73; BP 129/83; PULSE 80; RESP 16; O2SAT 93
[2018-12-21] MEDS: oxyCODONE 5 MG Tablet PO (11:33)
[2018-12-21 12:27] VITALS: BP 127/77; BP 129/83; PULSE 77; RESP 16; TEMP 36.3; O2SAT 95
== END 2018-12-21 12:20 | disposition home or self-care (01) ==
LOC: SDC 07:51 → AC 07:52
PROVIDERS: Family Provider Family Medicine; PCP Family Medicine; Referring Provider Orthopaedic Surgery; Visit Provider Orthopaedic Surgery
PROC: (CPT 29870; principal; 2018-12-21 09:15)
DX: S83.232A Complex tear of medial meniscus, current injury, left knee, initial encounter (principal); E11.42 Type 2 diabetes mellitus with diabetic polyneuropathy; J44.9 Chronic obstructive pulmonary disease, unspecified; E78.5 Hyperlipidemia, unspecified; G47.33 Obstructive sleep apnea (adult) (pediatric); I10 Essential (primary) hypertension; F17.200 Nicotine dependence, unspecified, uncomplicated; K21.9 Gastro-esophageal reflux disease without esophagitis; F32.9 Major depressive disorder, single episode, unspecified; F20.9 Schizophrenia, unspecified; J45.909 Unspecified asthma, uncomplicated; Z79.82 Long term (current) use of aspirin; Z79.84 Long term (current) use of oral hypoglycemic drugs; Z79.51 Long term (current) use of inhaled steroids; Z79.899 Other long term (current) drug therapy; X58.XXXA Exposure to other specified factors, initial encounter; Y93.89 Activity, other specified; Y92.89 Other specified places as the place of occurrence of the external cause; Y99.8 Other external cause status
CPT/HCPCS: 29881; 82962; J7120; J2405

== ENCOUNTER 2019-06-13 17:16 | Emergency (ER) | payer MEDICAID, SELFPAY ==
[2019-01-03 13:09] VITALS: BMI 33.7
[2019-06-13 17:16] VITALS: BP 126/78; PULSE 63; RESP 18; TEMP 36.1; O2SAT 95; BMI 31.4
--- NOTE | 2019-06-13 17:33 | EKG12_ITS ---
Test Reason : BACK PAIN, SOB, CP Blood Pressure : / mmHG Vent. Rate : 083 BPM Atrial Rate : 083 BPM P-R Int : 116 ms QRS Dur : 086 ms QT Int : 394 ms P-R-T Axes : 074 083 061 degrees QTc Int : 462 ms Normal sinus rhythm Nonspecific T-Wave Abnormality Confirmed by ZULY WALTERS, JEFFREY ([id number]), graphics editor QUAN HARTLEY ([id number]) on 06/15/2019 10:53:46 AM Referred By: DAVE/ANTHONY Confirmed By:JEFFREY CARUSO MD
--- NOTE | 2019-06-13 17:40 | RAD_ITS ---
STUDY: X-RAY CHEST REASON FOR EXAM: Female, 48 years old. Chest pain and cough TECHNIQUE: Single AP portable view of the chest. COMPARISON: 09/18/2018 FINDINGS: The lungs are clear and expanded. There is no demonstrated pleural abnormality. Normal size heart. Normal mediastinum and mark. Normal visualized pulmonary arteries. Normal visualized aortic arch and descending thoracic aorta. Normal visualized thoracic spine. Normal visualized ribs, clavicles, and shoulders. There is no demonstrated abnormality of the visualized soft tissue structures of the upper abdomen. RAD/Chest 1 View (Portable) IMPRESSION: No acute pulmonary process Electronically Signed: Jasvir Mei MD at 18:03 EDT , Service support ,
[2019-06-13 18:00] VITALS: BP 128/81; PULSE 75; RESP 15; O2SAT 96
[2019-06-13 18:05] VITALS: O2SAT 96
[2019-06-13 18:09] LABS: Absolute Lymphocyte Count 2.65 X10^3/uL (0.83-4.51); Absolute Neutrophil Count 4.2 X10^3/uL (2.0-7.7); Basophil# 0.06 X10^3/uL; Basophil% 0.8 % (0-1); Eosinophils% 1.3 % (0-5); Hematocrit 44.6 % (37-47); Hemoglobin 15.1 g/dL (12.0-15.0); Lymphocyte # 2.65 X10^3/ul (4.0); Lymphocyte % 34.7 % (19-41); Mean Corp Hgb Conc 33.9 g/dL (32-36); Mean Corpuscular Hgb 30.9 pg (27.0-32.0); Mean Corpuscular Volume 91.2 fL (81-99); Monocyte# 0.64 X10^3/uL; Monocyte% 8.4 % (0-10); NRBC Flagged by Analyzer 0 % (0-5); Neutrophil # 4.17 X10^3/uL (2.7-7.7); Neutrophil % 54.5 % (47-70); Platelet Count 245 K/mm3 (150-450); RBC Distribution Width CV 12.3 % (11.6-14.6); Red Blood Count 4.89 M/mm3 (4.2-5.4); White Blood Count 7.6 K/mm3 (4.4-11.0)
[2019-06-13 18:24] LABS: Anion Gap 6 (5-15); BUN 5 mg/dL (7-18); BUN/Creat Ratio 6.5 RATIO (10-20); Calcium,Total 9.3 mg/dL (8.5-10.1); Chloride 108 mmol/L (98-107); Creatinine, Serum 0.77 mg/dL (0.55-1.02); EST Glomerular Filtration Rate 85 mL/min (>60); Est Glom Filt Rate - Afr Amer 103 mL/min (>60); Estimated Creatinine Clearance 77.99 ml/min; Glucose 82 mg/dL (74-106); Potassium 3.6 mmol/L (3.5-5.1); Sodium Level 143 mmol/L (136-145)
[2019-06-13 19:04] VITALS: BP 104/66; PULSE 75; RESP 13; O2SAT 94
[2019-06-13] MEDS: Ketorolac 30 MG/ML Syringe IV (19:07)
--- NOTE | 2019-06-13 19:27 | ED.VISSUMM ---
- ER Visit Summary Date of Service: 06/13/19 Chief Complaint: Chest pain History of Present Illness: The patient is a 48 F who presents with chest pain that began today. Patient states she was doing school work when her pain began. Patient states the pain started in her back and radiates to the anterior chest. Patient describes as a tightness and squeezing. Patient states the pain is over the left parasternal area. Patient states her pain is worse when she lays down and takes a deep breath. Patient states her pain is relieved with nothing. Patient admits to nausea but denies any vomiting. Patient does admit to some shortness of breath. Patient also admits to cough with some green and white sputum. Patient admits to some mild diaphoresis. Patient denies any lightheadedness or reflux. Patient admits to some palpitations. Patient states she took 2 aspirin at home today. Physical Examination: Vital signs are stable. Patient is afebrile. Patient is in no acute distress. Oral mucosa is pink and moist. Neck is supple. Trachea is midline. There is no JVD noted. Heart was regular rate and rhythm. Lungs are clear and equal bilaterally. Abdomen is soft. Bowel sounds are normal. There is no tenderness. There is no guarding noted. Skin is warm dry. Cranial nerves II through XII are intact. There are no focal motor or sensory deficits noted. Test Results: EKG showed normal sinus rhythm with a rate of 83. There are no acute ST or T wave changes. This was unchanged compared to previous EKG dated 09/18/2018. Portable chest x-ray does not show any acute cardiopulmonary process. There is no widening of the mediastinum. CBC, basic metabolic profile, and troponin were normal. Emergency Department Course and Treatment: Patient has a MADDY risk score of 2. Patient was advised that this is low risk for acute cardiac event. Patient was instructed to follow-up with her primary care physician in 5 to 7 days. Return if worse in any way. Patient understood and was agreeable with the plan. All questions were answered. Disposition: Discharge home Impression: Chest pain of uncertain etiology This note was generated with [employer] dictation software. It may contain incorrect words, spelling, and punctuation that were not noted in review of the chart prior to signing ED Disposition - Plan for ED Patient: Disposition: Home or Assisted Living Diagnosis: Chest pain of uncertain etiology Instructions: CHEST PAIN, Uncertain Cause Referrals: Maxwell Mackey MD [Primary Care Provider] - 3-5 Days
[2019-06-13 19:31] VITALS: BP 119/106; PULSE 75; RESP 17; O2SAT 94
== END 2019-06-13 19:35 | disposition home or self-care (01) ==
PROVIDERS: Emergency Provider Emergency Medicine; Family Provider Family Medicine; PCP Family Medicine
DX: R07.9 Chest pain, unspecified (principal); E11.9 Type 2 diabetes mellitus without complications; I10 Essential (primary) hypertension; Z72.0 Tobacco use; E78.00 Pure hypercholesterolemia, unspecified; Z79.84 Long term (current) use of oral hypoglycemic drugs; Z79.899 Other long term (current) drug therapy
CPT/HCPCS: 71045; 80048; 84484; 85025; 93005; 96374; 99285; A4216

== ENCOUNTER → 2019-06-14 | Outpatient (CLI) | payer MEDICAID, SELFPAY ==
[2019-06-13 17:16] VITALS: BMI 31.4
[2019-06-14 14:20] LABS: D-Dimer Quantitative (DVT/PE) < 0.27 FEU/ug/m (0.27-0.49)
[2019-06-14 14:28] LABS: CPK Total, Creatine Kinase 92 U/L (26-192)
== END | disposition home or self-care (01) ==
LOC: LABSPEC 13:55
PROVIDERS: Family Provider Family Medicine; PCP Family Medicine; Referring Provider Family Medicine; Visit Provider Family Medicine
DX: R06.02 Shortness of breath (principal); R07.89 Other chest pain
CPT/HCPCS: 82550; 84484; 85379

== ENCOUNTER 2019-06-24 16:45 | Emergency (ER) | payer MEDICAID, SELFPAY ==
[2019-06-24 16:46] VITALS: BP 115/76; PULSE 78; RESP 19; TEMP 36.1; O2SAT 99; BMI 30.9
[2019-06-24] MEDS: Ketorolac 30 MG/ML Syringe IV (17:16)
[2019-06-24] MEDS: Morphine 4 MG/ML Syringe IV (17:17)
[2019-06-24] MEDS: Orphenadrine 60 MG/2 ML Ampul IM (17:19)
--- NOTE | 2019-06-24 17:35 | RAD_ITS ---
STUDY: X-RAY - THORACIC SPINE REASON FOR EXAM: Female, 48 years old. Upper back pain after lifting heavy laundry basket today. TECHNIQUE: 3 view(s) of the thoracic spine were obtained. COMPARISON: None. FINDINGS: Normal kyphosis of the thoracic spine. There is a very mild levoscoliosis. There is demineralization of the thoracic spine with endplate spondylosis. There is multilevel disc space narrowing of the thoracic spine. There is no evidence of acute fracture or loss of vertebral axial height. The soft tissue structures are unremarkable. RAD/Thoracic Spine 3 Views IMPRESSION: Mild degenerative changes of the thoracic spine Electronically Signed: Ye Parker DO at 17:52 EDT Tel [phone], Service support ,
--- NOTE | 2019-06-24 18:55 | ED.VIS.GEN ---
History of Present Illness Chief Complaint: Back Onset: Today Context: Gradual Onset Timing: Continuous Current Severity: Moderate Maximum Severity: Moderate Narrative: The patient presents to the emergency department with low back pain. She states that she is doing laundry today. She states she reached for her laundry basket and felt some tightness in her upper back. States shortly after, she began to have spasm. She denies any pain down her arms. She denies any chest pain or dyspnea. Prior similar symptoms: No Recent Illness/Hospitalization: No Past Medical History - Allergies and Home Meds Allergies/Adverse Reactions: Allergies divalproex sodium [From Depakote] Allergy (Intermediate, Verified 12/14/18 09:55) Rash Penicillins Allergy (Intermediate, Verified 12/14/18 09:55) Rash amoxicillin trihydrate [From Augmentin] Allergy (Verified 12/14/18 09:55) Unknown potassium clavulanate [From Augmentin] Allergy (Verified 12/14/18 09:55) Unknown ranitidine HCl [From Zantac] Allergy (Verified 12/14/18 09:55) Unknown codeine Adverse Reaction (Intermediate, Verified 12/14/18 09:55) Nausea and vomiting hydrocodone [From Vicodin] Adverse Reaction (Intermediate, Verified 12/14/18 09:55) Nausea and vomiting isosorbide Adverse Reaction (Intermediate, Verified 12/14/18 09:55) headache linagliptin [From Tradjenta] Adverse Reaction (Intermediate, Verified 12/14/18 09:55) Vomiting Primary Care Physician: Maxwell Mackey MD [Primary Care Provider] - Prior records reviewed: Yes Past Medical History: None Surgical History: hysterectomy Smoking Status: Former smoker Review of Systems General: Denies: Chills, Fever, Sweats Eyes: Denies: Visual changes - bilaterally, Diplopia ENT: Denies: Rhinorrhea, Sore throat Cardiovascular: Denies: Chest pain, Palpitations Respiratory: Denies: Dyspnea, Cough, Dyspnea on exertion Gastrointestinal: Denies: Abdominal pain, Nausea, Vomiting, Diarrhea, Melena, Hematochezia Genitourinary: Denies: Dysuria, Hematuria, Frequency Musculoskeletal: Reports: Back pain. Denies: Extremity Pain Skin: Denies: Rash, Wounds Neurological: Denies: Headache, Weakness, Numbness Physical Exam Vital Signs/Narrative: Vital Signs Temp Pulse Resp BP Pulse Ox 06/24/19 16:46 97 F L 78 19 H 115/76 99 Inital Vital Signs reviewed: Yes General: Well nourished, Well developed, No Acute Distress Head: Normocephalic, Atraumatic Eyes: Perrl, EOMI ENT: Moist mucous membranes, No rhinorrhea Neck: Supple, Nontender Cardiovascular: Regular rate, Regular rhythm, No murmurs Respiratory: No distress, CTA bilaterally, Chest nontender Abdomen: Soft, Nontender, Nondistended, Normal bowel sounds Back: Normal Inspection, - - Paraspinal tenderness in the mid thoracic spine. No step-off. No bony tenderness. Extremities: Nontender, No edema Skin: Normal color, No rash Neurological: Alert, Oriented x3, Cranial nerves II-XII grossly intact, Normal Strength, Normal Sensation Psychological: Normal affect, Normal Mood Diagnostic/Tx/Re-eval Clinical Impression(s) from Imaging Studies Thoracic Spine X-Ray 06/24/19 17:35 IMPRESSION: Mild degenerative changes of the thoracic spine Electronically Signed: Ye Parker DO at 17:52 EDT Tel [phone], Service support , - Medical Decision Making The patient symptoms do seem musculoskeletal. He did obtain plain films to rule out compression fracture. These were unremarkable. The patient was treated with analgesics and antispasmodics. On reevaluation, she is feeling improved. At this point, I do feel that she is safe for outpatient therapy. She will be treated with anti-inflammatories and antispasmodics. She will be discharged home. Impression 1. Acute thoracic strain spasm ED Disposition - Plan for ED Patient: Disposition: Home or Assisted Living Instructions: BACK SPASM, No Trauma Prescriptions: cycloBENZAPRine HCl [Flexeril] 10 mg PO TID PRN #20 tab PRN Reason: Muscle Spasm Prescription Printed Naproxen [Naprosyn] 500 mg PO BID PRN #20 tab Prescription Printed Referrals: Maxwell Mackey MD [Primary Care Provider] -
[2019-06-24 19:05] VITALS: BP 117/83; PULSE 91; RESP 14; O2SAT 97
== END 2019-06-24 19:06 | disposition home or self-care (01) ==
LOC: ED 17:29
PROVIDERS: Emergency Provider Emergency Medicine; Family Provider Family Medicine; PCP Family Medicine
DX: M62.830 Muscle spasm of back (principal); S29.012A Strain of muscle and tendon of back wall of thorax, initial encounter; Z87.891 Personal history of nicotine dependence; X50.0XXA Overexertion from strenuous movement or load, initial encounter; Y93.E2 Activity, laundry; Y92.008 Other place in unspecified non-institutional (private) residence as the place of occurrence of the external cause; Y99.8 Other external cause status
CPT/HCPCS: 72072; 96372; 96374; 96375; 99282; A4216

== ENCOUNTER → 2019-07-14 | Outpatient (CLI) | payer MEDICAID, SELFPAY ==
[2019-06-24 16:46] VITALS: BMI 30.9
--- NOTE | 2019-07-15 14:46 | STRESSREP_ITS ---
Stress Test Report Date: 07/14/2019 Procedure: Exercise tolerance test Indications: Chest pain Consent: Per the patient Procedure: The patient exercised on a Alphonse protocol for 3 minutes achieving a peak heart rate of 123 bpm (71 % predicted maximal heart rate) with a peak blood pressure 134/62 mmHg. The baseline ECG demonstrated [normal sinus rhythm, nonspecific ST-T changes]. The peak exercise ECG demonstrated sinus tachycardia, [address] depressions in the inferior leads. [There were no cardiac dysrhythmias pretest, during exercise, or recovery]. The functional capacity was considered significantly decreased for age. The patient had chest discomfort with minimal exertion. The examination was discontinued secondary to severe dyspnea and chest tightness. Impression: 1. Patient did not reach 85% of maximal age-predicted heart rate. This decreases the sensitivity of the test. 2. Stress test is positive for exercise-induced chest pain. 3. Stress test test is positive for exercise-induced EKG changes of ischemia. 4. Functional capacity is significantly decreased for age This note was generated with [employer] software. It may contain incorrect words, spelling, and punctuation that were not noted in checking the note before signing.
== END | disposition home or self-care (01) ==
LOC: CVS 11:46
PROVIDERS: Family Provider Family Medicine; PCP Family Medicine; Referring Provider Family Medicine; Visit Provider Family Medicine
DX: R06.02 Shortness of breath (principal); R07.89 Other chest pain
CPT/HCPCS: 93017

== ENCOUNTER → 2019-07-20 | Outpatient (CLI) | payer MEDICAID, SELFPAY ==
[2019-07-20 09:32] VITALS: BMI 32.5
[2019-07-20 10:26] LABS: Absolute Lymphocyte Count 2.74 X10^3/uL (0.83-4.51); Absolute Neutrophil Count 5.8 X10^3/uL (2.0-7.7); Basophil# 0.06 X10^3/uL; Basophil% 0.6 % (0-1); Eosinophil# 0.11 X10^3/uL; Eosinophils% 1.2 % (0-5); Hematocrit 41.8 % (37-47); Lymphocyte # 2.74 X10^3/ul (4.0); Lymphocyte % 28.8 % (19-41); Mean Corp Hgb Conc 33.5 g/dL (32-36); Mean Corpuscular Hgb 30.7 pg (27.0-32.0); Mean Corpuscular Volume 91.7 fL (81-99); Mean Platelet Vol. 10.8 fl (6.2-12.0); Monocyte# 0.77 X10^3/uL; Monocyte% 8.1 % (0-10); NRBC Flagged by Analyzer 0 % (0-5); Neutrophil # 5.81 X10^3/uL (2.7-7.7); Neutrophil % 61.1 % (47-70); Platelet Count 250 K/mm3 (150-450); RBC Distribution Width CV 12.2 % (11.6-14.6); RBC Distribution Width SD 40.6 fl (35.1-43.9); Red Blood Count 4.56 M/mm3 (4.2-5.4); White Blood Count 9.5 K/mm3 (4.4-11.0)
[2019-07-20 10:59] LABS: Anion Gap 6 (5-15); BUN 6 mg/dL (7-18); Calcium,Total 8.6 mg/dL (8.5-10.1); Chloride 107 mmol/L (98-107); Creatinine, Serum 0.75 mg/dL (0.55-1.02); EST Glomerular Filtration Rate 87 mL/min (>60); Est Glom Filt Rate - Afr Amer 106 mL/min (>60); Glucose 85 mg/dL (74-106); Potassium 3.6 mmol/L (3.5-5.1); Sodium Level 143 mmol/L (136-145)
== END | disposition home or self-care (01) ==
LOC: LAB 10:06
PROVIDERS: Family Provider Family Medicine; PCP Family Medicine; Referring Provider Internal Medicine Cardiovascular Disease; Visit Provider Internal Medicine Cardiovascular Disease
DX: I10 Essential (primary) hypertension (principal); R07.9 Chest pain, unspecified
CPT/HCPCS: 36415; 80048; 85025

== ENCOUNTER 2019-07-25 08:29 | Day surgery (SDC) | payer MEDICAID, SELFPAY ==
[2019-07-20 09:32] VITALS: BMI 32.5
[2019-07-22 09:29] VITALS: BMI 32.5
--- NOTE | 2019-07-25 10:19 | CL.D_ITS ---
Patient Name: BEV MIRELES Study Date: 07/25/2019 Performing: Preston Rosenbaum MD Ht: 62.99 inches 160 cm : 1970 Wt: 182.98 lbs 83 kg Age: 48 Gender: female BSA: 1.86 PROCEDURE(S) PERFORMED [id number]/COR/LV CLINICAL PROFILE AND INDICATIONS Indications: Suspected CAD Heart Failure: None Stress/Imaging Date: 07/14/2019 CAD Presentations: Symptom unlikely to be ischemic. CONCLUSIONS Non obstructive coronary arteries RECOMMENDATIONS Medical therapy DESCRIPTION OF PROCEDURE The patient arrived to the procedure lab. The risks and benefits of the procedure as well as a full d escription of our services here and current unavailability of surgical backup were fully explained to the patient and/or their significant other prior to the catheterization. The Timeout was completed, verifying the correct patient and procedure. The patient's procedural site was prepped and draped in the usual fashion. Local anesthetic was given subcutaneously to right radial region with Lidocaine 2% . Using a modified Seldinger technique, arterial access was obtained via the right radial artery, a 6 Fr sheath was inserted. Right Coronary Artery selective angiography was then performed in multiple v iews using a 5 Fr. 4.0 Dennis catheter. Left Coronary Artery selective angiography was performed in mu ltiple views using a 5 Fr. 4.0 Dennis catheter. Left Ventriculography was performed in MARK projection using a 5 Fr. Pigtail catheter. LV to AO pullback pressures were then recorded.The arterial sheath was pulled and a TR Band was applied for hemostasis CORONARY ANGIOGRAPHY DOMINANCE: Left Dominant LEFT HEART ASSESSMENT Left Ventricular Ejection Fraction: by LV Gram 65 % Normal LV wall motion Normal Left Ventricular systolic function Normal Left Ventricular systolic function Hypertension LEFT MAIN: Angiographically normal LEFT ANTERIOR DESCENDING ARTERY: Angiographically normal CIRCUMFLEX ARTERY: Angiographically normal RIGHT CORONARY ARTERY: Angiographically normal COMPLICATIONS No Complications PROCEDURE MEDICATIONS Versed 1 mg IV Fentanyl 50 mcg IV Oxygen: 2 L/min via nasal cannula Heparin given IA 07/25/2019 09:57:10 Verapamil 2.5mg, Ntg 100mcgs, 2000 units of Heparin given IA 07/25/2019 09:57:10 SUMMARY OF HEMODYNAMIC DATA Time AIR REST ECG 08:58:43 AO 155/97 (124) SA 09:58:25 LV 150/7, 13 10:03:20 LV 152/10, 12 10:03:27 LV 137/1, 16 10:04:05 LV 154/0, 17 10:04:11 LVp 158/0, 18 10:04:16 AOp 122/-28 (12) 10:04:21 RM AIR REST 10:14:38 Signed By Preston Rosenbaum MD On 07/25/2019 10:18:42 Preston Rosenbaum MD
== END 2019-07-25 12:25 | disposition home or self-care (01) ==
LOC: CLSP 08:29
PROVIDERS: Family Provider Family Medicine; PCP Family Medicine; Referring Provider Internal Medicine Cardiovascular Disease; Visit Provider Internal Medicine Cardiovascular Disease
DX: R07.9 Chest pain, unspecified (principal); I10 Essential (primary) hypertension; E78.5 Hyperlipidemia, unspecified; E66.9 Obesity, unspecified; F41.9 Anxiety disorder, unspecified; F32.9 Major depressive disorder, single episode, unspecified; J44.9 Chronic obstructive pulmonary disease, unspecified; G47.33 Obstructive sleep apnea (adult) (pediatric); E11.9 Type 2 diabetes mellitus without complications; F17.200 Nicotine dependence, unspecified, uncomplicated; Z68.32 Body mass index [BMI] 32.0-32.9, adult; Z79.82 Long term (current) use of aspirin; Z79.84 Long term (current) use of oral hypoglycemic drugs; Z79.899 Other long term (current) drug therapy
CPT/HCPCS: 93458; 99152; 99153; J7040; Q9967; C1769; C1894

== ENCOUNTER 2020-12-23 16:39 | Emergency (ER) | payer MEDICAID, SELFPAY ==
[2020-11-19 09:01] VITALS: BMI 34.3
[2020-12-23 16:40] VITALS: BP 135/66; PULSE 90; RESP 18; TEMP 36.1; O2SAT 96; BMI 34.2
--- NOTE | 2020-12-23 17:03 | CT_ITS ---
INDICATION: Abdominal pain EXAMINATION: CT Abdomen And Pelvis W/ Contrast Injection TECHNIQUE: Helically acquired images were obtained of the abdomen and pelvis after IV contrast. A radiation dose optimization technique was used for this scan. IV Contrast dosage and agent: 100 cc [id number] Oral contrast: Yes. COMPARISON: 11/03/2016. FINDINGS: Visualized lung bases: Small bilateral pleural effusions. Liver: Few scattered simple cysts. Gallbladder: Surgically absent. Spleen: Unremarkable Pancreas: Unremarkable Adrenal Glands: Unremarkable Kidneys: Unremarkable GI Tract: The appendix is not visualized. Vasculature: Unremarkable Lymphadenopathy: None Peritoneum: No ascites. Bladder: Unremarkable Reproductive organs: Unremarkable Bones/Soft tissues: Mild scattered degenerative changes of the visualized spine. CT/Abdomen/Pelvis WITH Contrast IMPRESSION: Small bilateral pleural effusions. No acute abnormalities in the abdomen or pelvis. Electronically Signed: Omar Katz MD at 19:23 EDT Tel , Service support ,
--- NOTE | 2020-12-23 17:05 | ED.DCSUM_ITS ---
- ER Visit Summary Date of Service: 12/23/20 Chief Complaint: Right upper quadrant abdominal pain History of Present Illness: The patient is a 50 F who presents with right upper quadrant abdominal pain that began yesterday. Patient states it is gradually gotten worse. Patient states it has been constant. Patient describes as aching and burning. Patient states the pain is localized to the right upper quadrant. Patient states the pain is worse with eating and sitting up. Patient states the pain is better with lying down. Patient admits to some nausea and vomiting. Patient denies any hematemesis or coffee-ground emesis. Patient denies any diarrhea, melena, or hematochezia. Patient denies any dysuria or hematuria. Physical Examination: Vital signs are stable. Patient is afebrile. Patient is in no acute distress. Oral mucosa is pink and moist. Neck is supple. Trachea is midline. There is no JVD. Heart was regular rate and rhythm. Lungs are clear and equal bilaterally. Abdomen is soft. Bowel sounds are normal. There is right upper quadrant tenderness. There is no rebound or guarding noted. Cranial nerves II through XII are intact. There are no focal motor or sensory deficits. Extremities are intact. There is no calf tenderness or edema. Test Results: CBC and comprehensive metabolic profile were obtained and were essentially within normal limits. Lipase was normal. Urinalysis does not show any evidence of urinary tract infection. CT scan of the abdomen pelvis with oral and IV contrast was obtained. There is no acute intra-abdominal process noted. Was interpreted by the radiologist and reviewed by myself. Emergency Department Course and Treatment: Patient was given morphine and Zofran here. Patient was feeling better on reevaluation. Patient was advised of her findings. Patient was instructed to eat a bland diet. Patient was instructed to follow-up with her primary care physician in 3 to 5 days. Patient understood and was agreeable with the plan. All questions were answered. Disposition: Discharge home Impression: 1. Right upper quadrant abdominal pain This note was generated with [employer] dictation software. It may contain incorrect words, spelling, and punctuation that were not noted in review of the chart prior to signing ED Disposition - Plan for ED Patient: Disposition: Home or Assisted Living Diagnosis: Right upper quadrant abdominal pain Instructions: ED Abdominal Pain Unkn Cause Fem Referrals: Maxwell Mackey MD [Primary Care Provider] - 5-7 Days
[2020-12-23 17:07] LABS: Absolute Lymphocyte Count 1.99 X10^3/uL (0.83-4.51); Absolute Neutrophil Count 4.6 X10^3/uL (2.0-7.7); Basophil# 0.03 X10^3/uL; Basophil% 0.4 % (0-1); Eosinophil# 0.13 X10^3/uL; Eosinophils% 1.8 % (0-5); Hematocrit 41.2 % (37-47); Hemoglobin 13.5 g/dL (12.0-15.0); Lymphocyte # 1.99 X10^3/ul (4.0); Lymphocyte % 26.8 % (19-41); Mean Corp Hgb Conc 32.8 g/dL (32-36); Mean Corpuscular Hgb 30.1 pg (27.0-32.0); Mean Corpuscular Volume 91.8 fL (81-99); Mean Platelet Vol. 10.3 fl (6.2-12.0); Monocyte# 0.67 X10^3/uL; NRBC Flagged by Analyzer 0 % (0-5); Neutrophil # 4.58 X10^3/uL (2.7-7.7); Neutrophil % 61.7 % (47-70); Platelet Count 213 K/mm3 (150-450); RBC Distribution Width CV 13.1 % (11.6-14.6); RBC Distribution Width SD 43.7 fl (35.1-43.9); Red Blood Count 4.49 M/mm3 (4.2-5.4); White Blood Count 7.4 K/mm3 (4.4-11.0)
[2020-12-23] MEDS: 0.9% Normal Saline 1,000 ML 1000 ML IV (17:18)
[2020-12-23] MEDS: Ondansetron 4 MG/2 ML Vial IV (17:18)
[2020-12-23 17:27] LABS: Bacteria 0 SEEN /hpf (None Seen); Mucous, Urine 0 SEEN /hpf (<or=2+); Red Blood Cells-Urine 0 SEEN /hpf (0-5); White Blood Cells 0 SEEN /hpf (0-5)
[2020-12-23 17:28] LABS: ALB/GLOB Ratio 1.1 RATIO (0.9-2.4); AST(SGOT) 50 U/L (15-37); Alanine Aminotransfer ALT/SGPT 49 U/L (13-56); Albumin, Serum 3.5 g/dL (3.2-5.0); Alkaline Phosphatase 79 U/L (45-117); Anion Gap 7 (5-15); BUN 6 mg/dL (7-18); BUN/Creat Ratio 8.8 RATIO (10-20); Calcium,Total 8.6 mg/dL (8.5-10.1); Chloride 104 mmol/L (98-107); Creatinine, Serum 0.68 mg/dL (0.55-1.02); EST Glomerular Filtration Rate 97 mL/min (>60); Est Glom Filt Rate - Afr Amer 117 mL/min (>60); Estimated Creatinine Clearance 82.78 ml/min; Globulin 3.2 g/dL (2.2-4.2); Glucose 117 mg/dL (74-106); Lipase 72 U/L (73-393); Potassium 3.5 mmol/L (3.5-5.1); Protein, Total 6.7 g/dL (6.4-8.2); Sodium Level 140 mmol/L (136-145)
[2020-12-23 17:29] LABS: Color, Urine Yellow (Yellow); Glucose, Dipstick Normal (Normal); Ketone-Dipstick Negative (Negative); Leukocyte Esterase-Dipstick Negative /ul (Negative); Nitrite-Dipstick Negative (Negative); Occult Blood-Urine Negative /ul (Negative); Protein-Dipstick Negative (Negative); Urine Bilirubin Dipstick Negative (Negative); Urine Clarity Sl. Cloudy (Clear); Urine Urobilinogen Normal (Normal)
[2020-12-23 17:39] LABS: Squamous Epithelial Cells - UA 5-10 SEEN /hpf (5-10)
[2020-12-23 17:40] LABS: Amorphous Sediment 1+ PHOS
[2020-12-23 19:16] VITALS: BP 141/88; PULSE 86; RESP 14; O2SAT 97
[2020-12-23 20:14] VITALS: BP 131/82; PULSE 83; RESP 18; O2SAT 98
== END 2020-12-23 20:15 | disposition home or self-care (01) ==
PROVIDERS: Emergency Provider Emergency Medicine; PCP Family Medicine
DX: R10.11 Right upper quadrant pain (principal); R11.2 Nausea with vomiting, unspecified; F17.200 Nicotine dependence, unspecified, uncomplicated; E11.9 Type 2 diabetes mellitus without complications; E78.00 Pure hypercholesterolemia, unspecified; K21.9 Gastro-esophageal reflux disease without esophagitis; I10 Essential (primary) hypertension; Z79.899 Other long term (current) drug therapy; Z79.82 Long term (current) use of aspirin; Z79.84 Long term (current) use of oral hypoglycemic drugs
CPT/HCPCS: 74177; 80053; 81001; 83690; 85025; 96374; 99282; J7030; Q9967; A4216; J2405

== ENCOUNTER → 2021-02-15 08:47 | Outpatient (CLI) | payer MEDICAID, SELFPAY ==
--- NOTE | 2021-02-15 08:49 | BI_ITS ---
MAMMOGRAPHY - BILATERAL DIAGNOSTIC REASON FOR EXAM: Female, 50 years old. Left breast lump. PERTINENT HISTORY: Non-contributory. TECHNIQUE: Digital bilateral breast emily (3D mammographic acquisition) in the CC and MLO projections. 2-D mediolateral oblique (MLO) and craniocaudad (CC) views of both breasts were obtained. CAD: Full Field Digital Mammography with Computer Added Detection was performed. COMPARISON: Comparison is made with prior outside examination dated 03/19/2016. FINDINGS: Breast Composition: The breasts are almost entirely fatty. There are no dominant masses or suspicious calcifications. Stable small benign-appearing bilateral axillary lymph nodes. No other significant abnormalities are identified. There has been no significant change since the prior study. BI/DIAG MAMM W/CAD, BILAT IMPRESSION: Stable bilateral diagnostic mammogram. With the patient''s history of a palpable lump in the left breast, correlation with ultrasound is recommended. ASSESSMENT CATEGORY: BIRADS Category 0: Incomplete. Need additional imaging evaluation. A letter regarding these results will be sent to the patient by the facility within 30 days. Approximately 10% of breast cancers are not detected by mammography. A normal mammogram should not delay biopsy of a clinically suspicious abnormality. Electronically Signed: Dwight Martinez MD at 11:04 EDT , Service support ,
--- NOTE | 2021-02-15 08:51 | US_ITS ---
STUDY: ULTRASOUND BREAST - LEFT REASON FOR EXAM: Female, 50 years old. Palpable lump left breast. TECHNIQUE: Axial and longitudinal images of the LEFT breast were performed with a high resolution ultrasound transducer. # OF IMAGES: 11 COMPARISON: Comparison is made with prior mammogram done earlier today. FINDINGS: LEFT Breast: The outer lower quadrant of the left breast was examined with ultrasound. No sonographic abnormalities. US/Breast Limited Unilateral IMPRESSION: No sonographic abnormality is seen. ASSESSMENT CATEGORY: BIRADS Category 1: Negative. A letter regarding these results will be sent to the patient by the facility within 30 days. Electronically Signed: Dwight Martinez MD at 11:11 EDT , Service support ,
== END ==
PROVIDERS: PCP Family Medicine
DX: N63.0 Unspecified lump in unspecified breast (principal)
CPT/HCPCS: 76642; 77062; 77066; G0279

== ENCOUNTER 2022-12-21 14:09 | Emergency (ER) | payer MEDICAID, SELFPAY ==
[2022-12-21 14:10] VITALS: BP 132/61; PULSE 89; RESP 18; TEMP 36.4; O2SAT 98; BMI 34.9
[2022-12-21] MEDS: Morphine 4 MG/ML Syringe IV (14:53)
[2022-12-21] MEDS: Ondansetron 4 MG/2 ML Vial IV (14:53)
--- NOTE | 2022-12-21 15:04 | EX.ED.DYSGE1 ---
HPI <ADAM Rendon - Last Filed: 12/21/22 19:27> History of Present Illness Chief Complaint: Abd Pain Narrative Narrative: Patient presenting today with sharp right upper quadrant pain that radiates to her right rib cage and below her right breast that she has had for the past 3 days constantly. She states that the pain is worsened with movement and while lying on that side. Patient states that she has had a cholecystectomy as well as an appendectomy. She has a history of diabetes mellitus, hypertension, hyperlipidemia. States that she has had some nausea without any vomiting. Denies any fever or chills, diarrhea, constipation, urinary symptoms, chest pain. PFSH <ADAM Rendon - Last Filed: 12/21/22 19:27> [facility] Medical History Allergic rhinitis Anxiety and depression Asthma Bilateral chronic serous otitis media Bilateral hearing loss Bilateral tinnitus Chronic maxillary sinusitis Congenital pulmonary arteriovenous malformation COPD (chronic obstructive pulmonary disease) Degenerative disc disease Dependence on nocturnal oxygen therapy Environmental allergies Essential (primary) hypertension Fatty liver History of pancreatitis History of suicidal ideation Hyperlipidemia Hypertriglyceridemia Liver cyst Low HDL (under 40) Menopause Murmur Nodule of right lung Obesity Obstructive sleep apnea Onychomycosis Paresthesia of both feet Premature ventricular contractions Psychotic disorder PTSD (post-traumatic stress disorder) Restless leg syndrome Type II diabetes mellitus with peripheral circulatory disorder Home Medications albuterol sulfate 90 mcg/actuation aerosol inhaler (Ventolin HFA) 2 puff inhalation Q6H PRN Sob &/Or Wheezing 07/19/18 [History Last Taken Unknown] omeprazole 40 mg capsule,delayed release 40 mg PO DAILY 12/14/18 [History Last Taken Unknown] aspirin 81 mg tablet,delayed release (Adult Aspirin Regimen) 81 mg PO DAILY 07/19/19 [History Last Taken Unknown] fluticasone propionate 50 mcg/actuation nasal spray,suspension (Flonase Allergy Relief) 1 spray intranasal DAILY 07/19/19 [History Last Taken Unknown] metformin 500 mg 24 hr tablet,extended release (Glumetza) 1,000 mg PO BID 07/19/19 [History Last Taken Unknown] nitroglycerin 0.4 mg sublingual tablet 0.4 mg SUBLINGUAL Q5-15M chest pain ##25 07/20/19 [Rx Last Taken Unknown] atorvastatin 80 mg tablet 80 mg PO QHS 09/21/20 [History Last Taken Unknown] paliperidone 3 mg tablet,extended release 24 hr 3 mg PO QAM 06/11/20 [History Last Taken Unknown] trihexyphenidyl 5 mg tablet 5 mg PO BID 06/11/20 [History Last Taken Unknown] valsartan 40 mg tablet 20 mg PO DAILY 06/11/20 [History Last Taken Unknown] paliperidone palmitate 234 mg/1.5 mL intramuscular syringe 234 mg IM QMONTH 11/19/20 [History Last Taken Unknown] Colestid 1 gm DAILY 12/23/20 [History Last Taken Unknown] polyethylene glycol 3350 17 gram oral powder packet 17 gm PO DAILY 12/23/20 [History Last Taken Unknown] ondansetron 4 mg disintegrating tablet 4 mg PO Q8H PRN PRN Nausea #10 tabs 12/21/22 [Rx Last Taken Unknown] oxycodone-acetaminophen 5 mg-325 mg tablet (Percocet) 1 tab PO Q8H PRN pain 3 days #7 tabs 12/21/22 [Rx Last Taken Unknown] Allergy/AdvReac Type Severity Reaction Status Date / Time sucralfate Allergy Severe throat Verified 12/21/22 14:13 swelling divalproex sodium Allergy Intermediate Rash Verified 12/21/22 14:13 [From Depakote] Penicillins Allergy Intermediate Rash Verified 12/21/22 14:13 amoxicillin trihydrate Allergy Unknown Verified 12/21/22 14:13 [From Augmentin] potassium clavulanate Allergy Unknown Verified 12/21/22 14:13 [From Augmentin] ranitidine HCl [From Zantac] Allergy Unknown Verified 12/21/22 14:13 codeine AdvReac Intermediate Nausea and Verified 12/21/22 14:13 vomiting hydrocodone [From Vicodin] AdvReac Intermediate Nausea and Verified 12/21/22 14:13 vomiting isosorbide AdvReac Intermediate headache Verified 12/21/22 14:13 linagliptin [From Tradjenta] AdvReac Intermediate Vomiting Verified 12/21/22 14:13 Family History Mother COPD (chronic obstructive pulmonary disease) CAD (coronary artery disease) Diabetes Hypertension Cancer skin Sarcoidosis Father CAD (coronary artery disease) Hypertension CVA (cerebral vascular accident) Surgical History History of appendectomy (2002) History of cholecystectomy (12/27/12) History of hysterectomy (2000) History of left heart catheterization (07/25/19) Social History Smoking Status: Current every day smoker tobacco type: cigarettes Tobacco: How many years used: 35 alcohol intake: never substance use type: does not use caffeine: No what type of physical activity do you participate in: none ROS <ADAM Rendon - Last Filed: 12/21/22 19:27> ROS ED Constitutional Constitutional ED: Denies chills, fever(s) or sweats Eyes Eyes: Denies blurry vision or diplopia Cardiovascular Cardiovascular: Denies chest pain or palpitations Respiratory/Chest Respiratory/Chest: Denies cough, dyspnea, tachypnea or wheezing Gastrointestinal Gastrointestinal: Reports abdominal pain and nausea; Denies constipation, diarrhea or vomiting Genitourinary Genitourinary ED: Denies dysuria, hematuria or urinary urgency Musculoskeletal Musculoskeletal: Denies arthralgias, back pain, myalgias or neck pain Integumentary Denies abscess, Abrasions or rash Neurologic Neurologic: Denies confusion, dizziness or paresthesias Psychiatric Psychiatric: Denies anxiety, depression, suicidal ideation or suicidal thoughts Allergic/Immunologic Allergic/Immunologic ED: Denies lip swelling, mouth swelling or urticaria EXAM <ADAM Rendon - Last Filed: 12/21/22 19:27> Physical Exam Const Vital Signs: 12/21/22 14:10 12/21/22 16:27 12/21/22 16:27 Temperature 97.6 F L Temperature Source Temporal Pulse Rate 89 80 81 Respiratory Rate 18 18 18 Blood Pressure 132/61 H 131/72 H 131/72 H Blood Pressure Mean 84 91 Pulse Ox 98 95 93 Oxygen Delivery Method Room Air Room Air Positive well nourished, well developed and no apparent distress General Appearance ED: well developed HEENT Reports normocephalic and head/scalp atraumatic Mouth ED: Yes moist mucous membranes normal Eyes PERRL and EOMs intact bilaterally Neck full ROM and supple Chest Wall inspection of chest normal Chest Narrative: Pain to palpation along the right lateral rib cage. Resp normal respiratory effort and clear to auscultation bilaterally Cardio regular rate and regular rhythm GI soft to palpation, non-tender, non-distended and no masses GI Narrative: Pain to palpation in the right upper quadrant. Back/Spine normal ROM and normal to inspection Extremity normal to inspection and full ROM Neuro oriented x3, CN's II-XII intact bilaterally, moves all extremities, no focal motor deficits and no sensory deficits noted Sensorium / Orientation: awake and alert Psych mental status grossly normal and thought process normal Skin no rashes or lesions noted and no wounds <Dr. Jose Manuel Wilder, - Last Filed: 12/21/22 20:58> Physical Exam Const Vital Signs: 12/21/22 14:10 12/21/22 16:27 12/21/22 16:27 Temperature 97.6 F L Temperature Source Temporal Pulse Rate 89 80 81 Respiratory Rate 18 18 18 Blood Pressure 132/61 H 131/72 H 131/72 H Blood Pressure Mean 84 91 Pulse Ox 98 95 93 Oxygen Delivery Method Room Air Room Air [facility] <ADAM Rendon - Last Filed: 12/21/22 19:27> [facility] Narrative Medical decision making narrative: Patient presenting today with right upper quadrant pain that she has had for the last 3 days. She does have significant tenderness along her right lateral rib cage as well as to the right upper quadrant. History of cholecystectomy several years ago. Reports mild nausea, she has been given Zofran and pain control. Labs have been obtained to assess liver enzymes and to look for leukocytosis, anemia, pancreatitis, NORMAN, electrolyte abnormality. Patient given potassium supplementation, labs otherwise unremarkable. Because of patient's pain to palpation, CT of the abdomen pelvis obtained to rule out liver abnormality, diverticulitis, and other abdominal etiology. CT scan shows increased number of hepatic hypodensities which are likely cysts. I have informed patient of this, told her to follow-up with her PCP on this. At this point, patient's abdominal pain is of unknown etiology. However, I think a lot of this could be muscular in nature as she does have a lot of tenderness to palpation along her right lateral rib cage and the pain in that area is worse when she lays on that side. She has been given a short course of pain medication and will be discharged home in stable condition. Is been given return precautions and is comfortable with plan Lab Data Attestation: I reviewed the patient's lab results. Lab results narrative: Hemoglobin 11.1, hematocrit 36.2, potassium 3.3, BUN 6, glucose 175 Labs: Laboratory Results - last 24 hr 12/21/22 12/21/22 15:00 15:00 WBC 7.2 RBC 4.51 Hgb 11.1 L Hct 36.2 L MCV 80.3 L MCH 24.6 L MCHC 30.7 L RDW Std Deviation 48.4 H RDW Coeff of Jossy 16.7 H Plt Count 261 MPV 10.6 Immature Gran % (Auto) 0.400 Neut % (Auto) 57.8 Lymph % (Auto) 29.0 [place] % (Auto) 10.0 Eos % (Auto) 2.4 Baso % (Auto) 0.4 Absolute Neuts (auto) 4.2 Absolute Lymphs (auto) 2.09 Nucleated RBC % 0 Sodium 140 Potassium 3.3 L Chloride 105 Carbon Dioxide 30.0 Anion Gap 5 BUN 6 L Creatinine 0.69 Estim Creat Clear Calc 79.79 Est GFR (MDRD) Af Amer 115 Est GFR (MDRD) Non-Af 95 BUN/Creatinine Ratio 8.7 L Glucose 175 H Calcium 8.7 Total Bilirubin 0.30 AST 17 ALT 23 Alkaline Phosphatase 106 Total Protein 6.6 Albumin 3.2 Globulin 3.4 Albumin/Globulin Ratio 0.9 Lipase 97 Radiography Diagnostic Testing: Clinical Impression(s) from Imaging Studies Abdomen/Pelvis CT 12/21/22 15:33 IMPRESSION: (NOT LISTED IN ORDER OF SIGNIFICANCE) There is hepatomegaly with diffuse hepatic enlargement. Increased number of hepatic hypodensities which are likely cysts. ACR White Paper guidelines (Sue et al. JACR 2017; 14(11):7998-4820.) suggest the following. For patients with low risk of malignancy, no further follow-up is necessary. For patients with high risk of malignancy (known malignancy with a propensity to metastasize to the liver, cirrhosis, and/or other hepatic risk factors), recommend follow-up abdominal CT or MR in 6 months. Other findings as above. Electronically Signed: Jeff Koehler MD at 16:05 EDT , CT also reviewed and interpreted by attending ED physician. <Dr. Jose Manuel Wilder, DO - Last Filed: 12/21/22 20:58> [facility] Narrative Medical decision making narrative: Patient presenting today with right upper quadrant pain that she has had for the last 3 days. She does have significant tenderness along her right lateral rib cage as well as to the right upper quadrant. History of cholecystectomy several years ago. Reports mild nausea, she has been given Zofran and pain control. Labs have been obtained to assess liver enzymes and to look for leukocytosis, anemia, pancreatitis, NORMAN, electrolyte abnormality. Patient given potassium supplementation, labs otherwise unremarkable. Because of patient's pain to palpation, CT of the abdomen pelvis obtained to rule out liver abnormality, diverticulitis, and other abdominal etiology. CT scan shows increased number of hepatic hypodensities which are likely cysts. I have informed patient of this, told her to follow-up with her PCP on this. At this point, patient's abdominal pain is of unknown etiology. However, I think a lot of this could be muscular in nature as she does have a lot of tenderness to palpation along her right lateral rib cage and the pain in that area is worse when she lays on that side. She has been given a short course of pain medication and will be discharged home in stable condition. Is been given return precautions and is comfortable with plan. This patient was seen with a PA/SYNTHETIC CHEMIST Individually assessed they patient including history and physical. I have reviewed everything on the chart that is available and agree with the documentation provided by the PA/SYNTHETIC CHEMIST including discussion about the assessment, treatment plan, discussion, and return precautions. Patient presented with right-sided abdominal pain. CBC was unremarkable. CMP and lipase do not show any abnormalities except for low potassium of 3.3. CT of the abdomen pelvis shows hepatomegaly with hepatic cyst. No evidence of anything acute. Discussed findings with patient. She is to follow-up with her PCP to ensure resolution. Lab Data Labs: Laboratory Results - last 24 hr 12/21/22 12/21/22 15:00 15:00 WBC 7.2 RBC 4.51 Hgb 11.1 L Hct 36.2 L MCV 80.3 L MCH 24.6 L MCHC 30.7 L RDW Std Deviation 48.4 H RDW Coeff of Jossy 16.7 H Plt Count 261 MPV 10.6 Immature Gran % (Auto) 0.400 Neut % (Auto) 57.8 Lymph % (Auto) 29.0 [place] % (Auto) 10.0 Eos % (Auto) 2.4 Baso % (Auto) 0.4 Absolute Neuts (auto) 4.2 Absolute Lymphs (auto) 2.09 Nucleated RBC % 0 Sodium 140 Potassium 3.3 L Chloride 105 Carbon Dioxide 30.0 Anion Gap 5 BUN 6 L Creatinine 0.69 Estim Creat Clear Calc 79.79 Est GFR (MDRD) Af Amer 115 Est GFR (MDRD) Non-Af 95 BUN/Creatinine Ratio 8.7 L Glucose 175 H Calcium 8.7 Total Bilirubin 0.30 AST 17 ALT 23 Alkaline Phosphatase 106 Total Protein 6.6 Albumin 3.2 Globulin 3.4 Albumin/Globulin Ratio 0.9 Lipase 97 Radiography Diagnostic Testing: Clinical Impression(s) from Imaging Studies Abdomen/Pelvis CT 12/21/22 15:33 IMPRESSION: (NOT LISTED IN ORDER OF SIGNIFICANCE) There is hepatomegaly with diffuse hepatic enlargement. Increased number of hepatic hypodensities which are likely cysts. ACR White Paper guidelines (Sue et al. JACR 2017; 14(11):1702-7253.) suggest the following. For patients with low risk of malignancy, no further follow-up is necessary. For patients with high risk of malignancy (known malignancy with a propensity to metastasize to the liver, cirrhosis, and/or other hepatic risk factors), recommend follow-up abdominal CT or MR in 6 months. Other findings as above. Electronically Signed: Jeff Koehler MD at 16:05 EDT Reading Location ID and State: [facility] / [place] , Service support , Discharge Plan Triage Chief Complaint: Abd Pain ED Midlevel Provider: Stefany Fox ED Provider: Jose Manuel Wilder Dx/Rx/DC Orders Clinical Impression: Abdominal pain, Nausea Instructions: Abdominal Pain Prescriptions: New ondansetron 4 mg tablet,disintegrating 4 mg PO Q8H PRN PRN (Reason: Nausea) Qty: 10 0RF oxycodone-acetaminophen [Percocet] 5-325 mg tablet 1 tab PO Q8H PRN (Reason: pain) 3 Days Qty: 7 0RF No Action Ventolin HFA 90 mcg/actuation HFA aerosol inhaler 2 puff INHALATION Q6H PRN (Reason: Sob &/Or Wheezing) nitroglycerin 0.4 mg tablet, sublingual 0.4 mg SUBLINGUAL Q5-15M Qty: 25 6RF metformin [Glumetza] 500 mg tablet,ER nakul.retention 24 hr 1,000 mg PO BID fluticasone propionate [Flonase Allergy Relief] 50 mcg/actuation spray,suspension 1 spray INTRANASAL DAILY aspirin [Adult Aspirin Regimen] 81 mg tablet,delayed release (DR/EC) 81 mg PO DAILY atorvastatin 80 mg tablet 80 mg PO QHS trihexyphenidyl 5 mg tablet 5 mg PO BID valsartan 40 mg tablet 20 mg PO DAILY paliperidone 3 mg tablet extended release 24hr 3 mg PO QAM paliperidone palmitate 234 mg/1.5 mL syringe 234 mg IM QMONTH omeprazole 40 MG capsule,delayed release(DR/EC) 40 mg PO DAILY Colestid 1 gm DAILY polyethylene glycol 3350 17 GM packet 17 gm PO DAILY Primary Care Provider: Madelaine Fox Referrals: Maxwell Mackey MD [Non-Staff] - 3-5 Days Activity Restrictions/Additional Instructions: Follow-up with your PCP and return for any worsening of symptoms. Your CT scan showed an increased number of hepatic hypodensities which are likely cysts, I suggest you discuss this with your PCP to see if a CT scan should be repeated in 6 months. Disposition Disposition: Home, Self Care Discharge Date/Time: 12/21/22 17:12
[2022-12-21 15:06] LABS: Absolute Lymphocyte Count 2.09 X10^3/uL (0.83-4.51); Absolute Neutrophil Count 4.2 X10^3/uL (2.0-7.7); Basophil# 0.03 X10^3/uL; Basophil% 0.4 % (0-1); Eosinophil# 0.17 X10^3/uL; Eosinophils% 2.4 % (0-5); Hematocrit 36.2 % (37-47); Hemoglobin 11.1 g/dL (12.0-15.0); Lymphocyte # 2.09 X10^3/ul (0.83-4.51); Mean Corp Hgb Conc 30.7 g/dL (32-36); Mean Corpuscular Hgb 24.6 pg (27.0-32.0); Mean Corpuscular Volume 80.3 fL (81-99); Mean Platelet Vol. 10.6 fl (6.2-12.0); Monocyte# 0.72 X10^3/uL; NRBC Flagged by Analyzer 0 % (0-5); Neutrophil # 4.17 X10^3/uL (2.7-7.7); Neutrophil % 57.8 % (47-70); Platelet Count 261 K/mm3 (150-450); RBC Distribution Width CV 16.7 % (11.6-14.6); RBC Distribution Width SD 48.4 fl (35.1-43.9); Red Blood Count 4.51 M/mm3 (4.2-5.4); White Blood Count 7.2 K/mm3 (4.4-11.0)
[2022-12-21 15:24] LABS: ALB/GLOB Ratio 0.9 RATIO (0.9-2.4); AST(SGOT) 17 U/L (15-37); Alanine Aminotransfer ALT/SGPT 23 U/L (13-56); Albumin, Serum 3.2 g/dL (3.2-5.0); Alkaline Phosphatase 106 U/L (45-117); Anion Gap 5 (5-15); BUN 6 mg/dL (7-18); BUN/Creat Ratio 8.7 RATIO (10-20); Calcium,Total 8.7 mg/dL (8.5-10.1); Chloride 105 mmol/L (98-107); Creatinine, Serum 0.69 mg/dL (0.55-1.02); EST Glomerular Filtration Rate 95 mL/min (>60); Est Glom Filt Rate - Afr Amer 115 mL/min (>60); Estimated Creatinine Clearance 79.79 ml/min; Globulin 3.4 g/dL (2.2-4.2); Glucose 175 mg/dL (74-106); Lipase 97 U/L (73-393); Potassium 3.3 mmol/L (3.5-5.1); Protein, Total 6.6 g/dL (6.4-8.2); Sodium Level 140 mmol/L (136-145)
--- NOTE | 2022-12-21 15:33 | CT_ITS ---
STUDY: CT Abdomen And Pelvis W/ Contrast Injection 12/21/2022 4:00 PM REASON FOR EXAM: Female, 52 years old. Abdominal pain abdominal pain Individualized dose optimization techniques were used for this CT. COMPARISON: 12.23.20 TECHNIQUE: CT Abdomen And Pelvis W/ Contrast Injection IV 100mL [id number] FINDINGS: The visualized lung bases are unremarkable. The visualized portions of the heart are within normal limits. There is hepatomegaly with diffuse hepatic enlargement. There are surgical clips in the gallbladder fossa consistent with a prior cholecystectomy. Normal spleen. Normal pancreas. Increased number of hepatic hypodensities which are likely cysts. ACR White Paper guidelines (Reardan, et al. JACR 2017; 14(11):1476-0278.) suggest the following. For patients with low risk of malignancy, no further follow-up is necessary. For patients with high risk of malignancy (known malignancy with a propensity to metastasize to the liver, cirrhosis, and/or other hepatic risk factors), recommend follow-up abdominal CT or MR in 6 months. Normal bilateral adrenal glands. No acute findings of the right kidney. No acute findings of the left kidney. Normal visualized stomach. Normal small intestine. Stool throughout the colon. There is non-visualization of the appendix. There are calcifications of the abdominal aorta. This is consistent for atherosclerotic disease. There is NO abdominal aortic aneurysm. Vascular workup can be obtained based on clinical correlation. Normal inferior vena cava. Subcentimeter mesenteric lymph nodes. Normal urinary bladder. There is absence of the uterus consistent with a prior hysterectomy. There is an umbilical hernia containing fat. Normal osseous structures. CT/Abdomen/Pelvis W IV Cont ONLY IMPRESSION: (NOT LISTED IN ORDER OF SIGNIFICANCE) There is hepatomegaly with diffuse hepatic enlargement. Increased number of hepatic hypodensities which are likely cysts. ACR White Paper guidelines (Reardan, et al. JACR 2017; 14(11):9872-7190.) suggest the following. For patients with low risk of malignancy, no further follow-up is necessary. For patients with high risk of malignancy (known malignancy with a propensity to metastasize to the liver, cirrhosis, and/or other hepatic risk factors), recommend follow-up abdominal CT or MR in 6 months. Other findings as above. Electronically Signed: Jeff Koehler MD at 16:05 EDT ,
[2022-12-21 16:27] VITALS: BP 131/72; PULSE 80; PULSE 81; RESP 18; O2SAT 93; O2SAT 95
[2022-12-21] MEDS: Potassium Chloride Oral Tablet 20 MEQ 40 MEQ PO (16:29)
--- NOTE | 2022-12-21 17:09 | ED.RN ---
THIS RN EDUCATED PT ABOUT WHY FINISHING IV FLUIDS WAS NECESSARY (FOR KIDNEY FUNCTION AFTER IV CONTRAST). PT STATED SHE UNDERSTOOD AND WOULD CONSUME LOTS OF ORAL FLUIDS AT HOME BUT DID NOT WANT TO STAY FOR REMAINDER OF IV FLUIDS. PT RECEIVED ABOUT 750 ML OF FLUIDS. IV DISCONTINUED. SITE DOES NOT HAVE ANY S/S OF INFILTRATION. PT DENIES ANY PAIN AT SITE.
== END 2022-12-21 17:12 | disposition home or self-care (01) ==
PROVIDERS: Physician Assistant; Emergency Provider Student in an Organized Health Care Education/Training Program; PCP Nurse Practitioner Family; Visit Provider Student in an Organized Health Care Education/Training Program
DX: R10.11 Right upper quadrant pain (principal); R11.0 Nausea; F17.210 Nicotine dependence, cigarettes, uncomplicated; G47.33 Obstructive sleep apnea (adult) (pediatric); K76.0 Fatty (change of) liver, not elsewhere classified
CPT/HCPCS: 74177; 80053; 83690; 85025; 96374; 96375; 99284; J7030; Q9967; J2405

== ENCOUNTER → 2023-02-20 | Outpatient (CLI) | payer MEDICAID, SELFPAY ==
[2023-02-20 11:03] LABS: Erythrocyte Sedimentation Rate 13 mm/hr (0-30)
[2023-02-20 11:19] LABS: Hemoglobin A1c 7.3 % (3.8-5.6)
[2023-02-20 11:29] LABS: AST(SGOT) 20 U/L (15-37); Alanine Aminotransfer ALT/SGPT 20 U/L (13-56); Albumin, Serum 3.4 g/dL (3.2-5.0); Alkaline Phosphatase 106 U/L (45-117); Anion Gap 4 (5-15); BUN 8 mg/dL (7-18); BUN/Creat Ratio 12.4 RATIO (10-20); CRP 8.75 mg/L (0.0-3.0); Calcium,Total 8.7 mg/dL (8.5-10.1); Chloride 106 mmol/L (98-107); Creatinine, Serum 0.65 mg/dL (0.55-1.02); EST Glomerular Filtration Rate 103 mL/min (>60); Est Glom Filt Rate - Afr Amer 124 mL/min (>60); Globulin 3.3 g/dL (2.2-4.2); Glucose 204 mg/dL (74-106); LDH 148 U/L (84-246); Potassium 3.6 mmol/L (3.5-5.1); Protein, Total 6.7 g/dL (6.4-8.2); Sodium Level 141 mmol/L (136-145)
[2023-02-23 15:07] LABS: Anti-Centromere B Ab <0.2 AI (0.0-0.9); Anti-Chromatin <0.2 AI (0.0-0.9); Anti-Jo <0.2 AI (0.0-0.9); Anti-Scleroderma-70 AB 0.4 AI (0.0-0.9); Anti-dsDNA Ab 4 IU/mL (0-9); Endomysial Antibody IgA Negative (Negative); Immunoglobulin A 239 mg/dL (87-352); RNP Ab 0.4 AI (0.0-0.9); SJOGREN'S Anti-SS-A test < 0.2 AI (0.0-0.9); SJOGREN'S Anti-SS-B test < 0.2 AI (0.0-0.9); Smith Ab <0.2 AI (0.0-0.9); t-Transglutaminase IgA <2 U/mL (0-3)
[2023-02-26 13:08] LABS: Albumin 3.8 g/dL (2.9-4.4); Alpha-1-Globulins 0.2 g/dL (0.0-0.4); Alpha-2-Globulins 0.7 g/dL (0.4-1.0); Cytoplasmic Ab (C-ANCA) <1:20 titer (Neg:<1:20); Gamma Globulin 0.6 g/dL (0.4-1.8); IMMUNOFIXATION RESULT,S Comment: (.); Immunoglobulin A 240 mg/dL (87-352); Immunoglobulin E 39 IU/mL (6-495); Immunoglobulin G 739 mg/dL (586-1602); Immunoglobulin M 94 mg/dL (26-217); PROEL- TOTAL PROTEIN 6.3 g/dL (6.0-8.5); Perinuclear Ab (P-ANCA) <1:20 titer (Neg:<1:20)
== END | disposition home or self-care (01) ==
LOC: LAB 10:41
PROVIDERS: PCP Nurse Practitioner Family; Referring Provider Internal Medicine Gastroenterology; Visit Provider Internal Medicine Gastroenterology
DX: R07.9 Chest pain, unspecified (principal); K59.00 Constipation, unspecified
CPT/HCPCS: 36415; 80053; 82784; 82785; 83036; 83516; 83615; 84165; 85652; 86140; 86225; 86235; 86255; 86256; 86334

== ENCOUNTER → 2023-03-25 | Outpatient (CLI) | payer MEDICAID, SELFPAY ==
--- NOTE | 2023-03-25 12:25 | NM_ITS ---
CLINICAL: 52-year-old female with history of abdominal pain. SEMI-SOLID PHASE 99m Tc SULFUR COLLOID GASTRIC EMPTYING STUDY COMPARISON: None available FINDINGS: The patient was administered 1.0 mCi of 99m Tc sulfur colloid mixed with oatmeal and consumed per os. Image acquisitions in the anterior-posterior projections were obtained for 60 minutes. There is prompt visualization of the stomach. There is no gastroesophageal reflux identified. The T ? raw data emptying was calculated to be 24.73 minutes, (Normal: 12-56 minutes). NM/Gastric Emptying Study IMPRESSION: 1. NORMAL 99m Tc sulfur colloid semi-solid phase (oatmeal) gastric emptying imaging examination. A. There is normal and preserved semi-solid phase gastric emptying compared to normal controls. (Magan et al, J Nucl Med Tech 38: 186, 2010). Electronically Signed: Km [place], at 9:48 EDT ,
== END | disposition home or self-care (01) ==
LOC: NM 12:17
PROVIDERS: PCP Nurse Practitioner Family; Referring Provider Internal Medicine Gastroenterology; Visit Provider Internal Medicine Gastroenterology
DX: R10.9 Unspecified abdominal pain (principal)
CPT/HCPCS: 78264; A9541

== ENCOUNTER → 2023-04-20 | Outpatient (CLI) | payer MEDICAID, SELFPAY ==
[2023-04-20 09:50] LABS: Hematocrit 37.7 % (37-47); Hemoglobin 11.2 g/dL (12.0-15.0); Mean Corp Hgb Conc 29.7 g/dL (32-36); Mean Corpuscular Hgb 24.1 pg (27.0-32.0); Mean Corpuscular Volume 81.3 fL (81-99); Platelet Count 230 K/mm3 (150-450); RBC Distribution Width CV 15.3 % (11.6-14.6); RBC Distribution Width SD 44.8 fl (35.1-43.9); Red Blood Count 4.64 M/mm3 (4.2-5.4); White Blood Count 7.8 K/mm3 (4.4-11.0)
[2023-04-20 10:08] LABS: Microalbumin,Random Urine 11.5 mg/L (NO RANGE EST.); Microalbumin:Creatinine Ratio 6.6 mg/g CRE (<30 mg/g CRE)
[2023-04-20 10:23] LABS: ALB/GLOB Ratio 0.9 RATIO (0.9-2.4); AST(SGOT) 17 U/L (15-37); Alanine Aminotransfer ALT/SGPT 20 U/L (13-56); Alkaline Phosphatase 105 U/L (45-117); Anion Gap 3 (5-15); BUN 8 mg/dL (7-18); BUN/Creat Ratio 10.3 RATIO (10-20); Calcium,Total 8.4 mg/dL (8.5-10.1); Chloride 105 mmol/L (98-107); Cholesterol 144 mg/dL (200); Creatinine, Serum 0.78 mg/dL (0.55-1.02); EST Glomerular Filtration Rate 83 mL/min (>60); Est Glom Filt Rate - Afr Amer 100 mL/min (>60); Globulin 3.4 g/dL (2.2-4.2); Glucose 272 mg/dL (74-106); High Density Lipoprotein 29 mg/dL; Potassium 3.7 mmol/L (3.5-5.1); Protein, Total 6.4 g/dL (6.4-8.2); Sodium Level 139 mmol/L (136-145); Triglycerides 163 mg/dL; Very Low Density Lipoprotein 33 mg/dL (5-40)
== END | disposition home or self-care (01) ==
LOC: LAB 09:23
PROVIDERS: PCP Nurse Practitioner Family; Referring Provider Nurse Practitioner Family; Visit Provider Nurse Practitioner Family
DX: E11.9 Type 2 diabetes mellitus without complications (principal); Z13.220 Encounter for screening for lipoid disorders
CPT/HCPCS: 36415; 80053; 80061; 82043; 82570; 83036; 85027

== ENCOUNTER 2023-06-12 10:30 | Outpatient (RCR) | payer MEDICAID, SELFPAY ==
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
== END 2023-06-12 19:00 | disposition home or self-care (01) ==
LOC: PT 10:30
PROVIDERS: PCP Nurse Practitioner Family; Referring Provider Internal Medicine; Visit Provider Internal Medicine
DX: M54.9 Dorsalgia, unspecified (principal); G89.29 Other chronic pain
CPT/HCPCS: 97113; 97162

== ENCOUNTER 2023-08-25 22:47 | Emergency (ER) | payer MEDICAID, SELFPAY ==
--- NOTE | 2023-08-25 21:35 | RAD_ITS ---
EXAM: XR CHEST, 2 VIEWS CLINICAL INDICATION: chest pain TECHNIQUE: Frontal and lateral views of the chest. COMPARISON: June 13, 2019. And the oldest prior exam provided from February 27, 2018. Report from April 11, 2013 described 1.1 cm x 0.8 cm nodule right midlung zone, and 1 cm nodule in the anterior right upper lobe was described October 04, 2012, the older images were not provided. FINDINGS: LUNGS AND PLEURAL SPACES: Similar appearance of smooth ovoid nodule abutting or close to the minor fissure compared to 2018, roughly 1.1 cm x 0.8 cm as described on prior exam. No significant infiltrates. Slight blunting of the left lateral costophrenic angle may be due to trace pleural effusion or thickening. No pneumothorax. HEART: Unremarkable. Cardiac silhouette not enlarged. MEDIASTINUM: Central airways and mediastinal contour are unremarkable. BONES/JOINTS: Unremarkable. No acute fracture. SOFT TISSUES: Unremarkable. UPPER ABDOMEN: Cholecystectomy clips. RAD/Chest PA and Lateral IMPRESSION: Slight blunting of the left lateral costophrenic angle, possibly trace effusion. Otherwise stable chest. Electronically Signed: Alexa Sarmiento MD at 0:57 EST ,
[2023-08-25 22:49] VITALS: BP 114/66; PULSE 88; RESP 16; TEMP 36.3; O2SAT 91; BMI 36.5
[2023-08-25 23:45] VITALS: BP 118/71; PULSE 79
[2023-08-25] MEDS: Nitroglycerin Oint 1 INCH PACKET TD (23:45)
[2023-08-25 23:58] VITALS: BP 125/76; PULSE 78; RESP 13; O2SAT 92
[2023-08-26] VITALS: BP 110/63; PULSE 75; RESP 16; O2SAT 92
[2023-08-26 00:08] LABS: Anion Gap 3 (5-15); BUN 7 mg/dL (7-18); BUN/Creat Ratio 9.3 RATIO (10-20); Calcium,Total 8.7 mg/dL (8.5-10.1); Chloride 104 mmol/L (98-107); Creatinine, Serum 0.75 mg/dL (0.55-1.02); EST Glomerular Filtration Rate 86 mL/min (>60); Est Glom Filt Rate - Afr Amer 104 mL/min (>60); Estimated Creatinine Clearance 73.41 ml/min; Glucose 121 mg/dL (74-106); Magnesium 1.8 mg/dL (1.6-2.6); Potassium 3.3 mmol/L (3.5-5.1); Sodium Level 139 mmol/L (136-145); Troponin-I HS 9 pg/mL (3.0-54.0)
[2023-08-26 00:17] LABS: Absolute Lymphocyte Count 2.64 X10^3/uL (0.83-4.51); Absolute Neutrophil Count 5.4 X10^3/uL (2.0-7.7); Basophil# 0.04 X10^3/uL; Basophil% 0.4 % (0-1); Eosinophils% 2.2 % (0-5); Hematocrit 40.9 % (37-47); Hemoglobin 12.4 g/dL (12.0-15.0); Lymphocyte # 2.64 X10^3/ul (0.83-4.51); Lymphocyte % 28.7 % (19-41); Mean Corp Hgb Conc 30.3 g/dL (32-36); Mean Corpuscular Hgb 24.4 pg (27.0-32.0); Mean Corpuscular Volume 80.5 fL (81-99); Mean Platelet Vol. 11.4 fl (6.2-12.0); Monocyte% 8.7 % (0-10); NRBC Flagged by Analyzer 0 % (0-5); Neutrophil # 5.43 X10^3/uL (2.7-7.7); Platelet Count 279 K/mm3 (150-450); RBC Distribution Width CV 16.6 % (11.6-14.6); RBC Distribution Width SD 48.4 fl (35.1-43.9); Red Blood Count 5.08 M/mm3 (4.2-5.4); White Blood Count 9.2 K/mm3 (4.4-11.0)
[2023-08-26 00:55] LABS: Troponin-I HS 9 pg/mL (3.0-54.0)
--- NOTE | 2023-08-26 01:06 | EX.ED.DYSGE1 ---
HPI History of Present Illness Chief Complaint: Chest Pain Informant: patient Narrative Narrative: Patient is a 52-year-old female with past medical history of hypertension hyperlipidemia and insulin-dependent diabetes as well as smoking. She states roughly an hour and a half prior to arrival she was sitting at rest when she got midsternal chest pain. She states that she had some radiation towards her neck and developed some nausea and shortness of breath associated with it. She states that she has nitro at home from her industrial court magistrate and she took this did not have much symptom improvement so called 911. EMS report they gave her 4 baby aspirin and 1 more nitro and her pain resolved prior to arrival in ER. Patient states her last heart cath was 2 years ago and her last echo was roughly 6 months ago. However with concern this could be cardiac in nature she presents for evaluation [facility] Medical History Allergic rhinitis Anxiety and depression Asthma Bilateral chronic serous otitis media Bilateral hearing loss Bilateral tinnitus Chronic maxillary sinusitis Congenital pulmonary arteriovenous malformation Constipation COPD (chronic obstructive pulmonary disease) Degenerative disc disease Dependence on nocturnal oxygen therapy Environmental allergies Essential (primary) hypertension Fatty liver Hepatic lesion History of pancreatitis History of suicidal ideation Hypertriglyceridemia Liver cyst Low HDL (under 40) Menopause Murmur Nodule of right lung Obesity Obstructive sleep apnea Onychomycosis Paresthesia of both feet Premature ventricular contractions Psychotic disorder PTSD (post-traumatic stress disorder) Restless leg syndrome Type II diabetes mellitus with peripheral circulatory disorder Home Medications albuterol sulfate 90 mcg/actuation aerosol inhaler (Ventolin HFA) 2 puff inhalation Q6H PRN Sob &/Or Wheezing 07/19/18 [History Last Taken Unknown] nitroglycerin 0.4 mg sublingual tablet 0.4 mg sublingual Q5-15M chest pain #25 TABLETS 07/20/19 [Rx Last Taken Unknown] cetirizine 10 mg tablet 10 mg PO DAILY 06/02/23 [History Last Taken Unknown] insulin syringe,safetyneedle 0.5 mL 31 gauge x 15/64 (Assure ID Insulin Safety) #100 ea 06/02/23 [Rx Last Taken Unknown] paliperidone palmitate 234 mg/1.5 mL intramuscular syringe (Invega Sustenna) 234 mg IM Q30D 06/02/23 [History Last Taken Unknown] propranolol 10 mg tablet 10 mg PO BID 06/02/23 [History Last Taken Unknown] tiotropium bromide 18 mcg capsule with inhalation device (Spiriva with HandiHaler) 1 cap inhalation DAILY 06/02/23 [History Last Taken Unknown] pen needle, diabetic 31 gauge x 3/16 (1st Tier Unifine Pentips Plus) #100 ea 06/08/23 [Rx Last Taken Unknown] sitagliptin phosphate 100 mg tablet (Januvia) 100 mg PO DAILY #90 tabs 07/21/23 [Rx Last Taken Unknown] Dexcom G7 Sensor (blood-glucose sensor) #3 ea 08/24/23 [Rx Last Taken Unknown] Mounjaro 5 mg/0.5 mL subcutaneous pen injector (tirzepatide) 5 mg (0.5 mL) subcut QWEEK #2 mL 08/24/23 [Rx Last Taken Unknown] albuterol sulfate 2.5 mg/3 mL (0.083 %) solution for nebulization 2.5 mg continuous nebulization Q4H sob and wheezing 08/25/23 [History Last Taken Unknown] atorvastatin 40 mg tablet 80 mg PO DAILY hyperlipidemia 08/25/23 [History Last Taken Unknown] baclofen 10 mg tablet 10 mg PO DAILY 08/25/23 [History Last Taken Unknown] ondansetron 4 mg disintegrating tablet 4 mg PO Q8H 08/25/23 [History Last Taken Unknown] sertraline 25 mg tablet 25 mg PO DAILY 08/25/23 [History Last Taken Unknown] tiotropium bromide 2.5 mcg/actuation mist for inhalation (Spiriva Respimat) 2 puff inhalation DAILY copd 08/25/23 [History Last Taken Unknown] Allergy/AdvReac Type Severity Reaction Status Date / Time sucralfate Allergy Severe throat Verified 08/24/23 09:18 swelling divalproex sodium Allergy Intermediate Rash Verified 08/24/23 09:18 [From Depakote] Penicillins Allergy Intermediate Rash Verified 08/24/23 09:18 amoxicillin trihydrate Allergy Unknown Verified 08/24/23 09:18 [From Augmentin] potassium clavulanate Allergy Unknown Verified 08/24/23 09:18 [From Augmentin] ranitidine HCl [From Zantac] Allergy Unknown Verified 08/24/23 09:18 codeine AdvReac Intermediate Nausea and Verified 08/24/23 09:18 vomiting hydrocodone [From Vicodin] AdvReac Intermediate Nausea and Verified 08/24/23 09:18 vomiting isosorbide AdvReac Intermediate headache Verified 08/24/23 09:18 linagliptin [From Tradjenta] AdvReac Intermediate Vomiting Verified 08/24/23 09:18 Family History Mother COPD (chronic obstructive pulmonary disease) CAD (coronary artery disease) Diabetes Hypertension Cancer skin Sarcoidosis Father CAD (coronary artery disease) Hypertension CVA (cerebral vascular accident) Surgical History History of appendectomy (2002) History of cholecystectomy (12/27/12) History of hysterectomy (2000) History of left heart catheterization (07/25/19) Social History household members: spouse and other details: grandson current occupational status: disabled 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 Smoking Status: Current every day smoker tobacco type: cigarettes Tobacco: How many years used: 35 Electronic Cigarette Use: not used alcohol intake: never substance use type: does not use caffeine: No what type of physical activity do you participate in: none do you feel safe at home: Yes ROS ROS ED Constitutional Constitutional ED: Denies chills or fever(s) ENT ENT ED: Denies sore throat Cardiovascular Cardiovascular: Reports chest pain; Denies palpitations or racing heartbeat Respiratory/Chest Respiratory/Chest: Reports dyspnea; Denies cough Gastrointestinal Gastrointestinal: Reports nausea; Denies abdominal pain, diarrhea or vomiting Genitourinary Genitourinary ED: Denies dysuria Musculoskeletal Musculoskeletal: Denies myalgias Integumentary Denies rash Neurologic Neurologic: Denies headache(s) Hematologic/Lymphatic Hematologic/Lymphatic: Denies easy bleeding or easy bruising EXAM Physical Exam Const Vital Signs: 08/25/23 22:49 08/25/23 22:55 08/25/23 23:45 Temperature 97.3 F L Temperature Source Temporal Pulse Rate 88 79 Respiratory Rate 16 Respiratory Effort Normal Blood Pressure 114/66 118/71 Blood Pressure Mean 82 Pulse Ox 91 Oxygen Delivery Method Room Air 08/25/23 23:58 08/26/23 00:00 Temperature Temperature Source Pulse Rate 78 75 Respiratory Rate 13 16 Respiratory Effort Blood Pressure 125/76 H 110/63 Blood Pressure Mean 92 78 Pulse Ox 92 92 Oxygen Delivery Method Room Air Room Air Positive well nourished and well developed General Appearance ED: well developed; Negative for pallor HEENT HEENT Narrative: No tongue or lip swelling no oral lesions no airway edema or compromise Eyes PERRL and EOMs intact bilaterally General Eye ED: Negative for scleral icterus Neck supple and no JVD Chest Wall Chest Narrative: There is reproducible pain on palpation along the left anterior chest wall rib regions 4-6 without bony deformity or crepitance noted Resp normal respiratory effort Resp Narrative: Breath sounds are diminished throughout with diffuse rhonchi consistent with history of smoking but no signs of respiratory distress Cardio regular rate and regular rhythm Rate: other Other Details: Heart is regular rate and rhythm without murmurs rubs or gallops Radial and carotid pulses are equal and symmetric GI normal to inspection, nondistended, normoactive bowel sounds, non-tender, non-distended and no masses GI Narrative: No voluntary guarding or rigidity No pulsatile mass or fluid wave Auscultation: normoactive bowel sounds Palpation: soft Extremity normal to inspection Extremity Narrative: No asymmetric edema no pitting edema negative Homans' sign bilaterally Neuro oriented x3, CN's II-XII intact bilaterally and no sensory deficits noted Sensorium / Orientation: alert Motor Exam: strength 5/5 throughout Psych mental status grossly normal Skin no rashes or lesions noted General Skin Exam: Negative for jaundice or pallor MDM MDM MDM Narrative Medical decision making narrative: Patient arrived to the ER with complete resolution of her pain with nitro. She does have significant risk factors for cardiovascular disease and has been roughly 2 years since her reported last heart cath and therefore a cardiac workup was obtained. Differential diagnosis is for acute coronary syndrome versus Prinzmetal's angina versus pneumonia or pneumothorax versus cardiac dysrhythmia or electrolyte abnormality. Basic labs were obtained which revealed no clinically significant findings as her initial and delta troponin were normal and remained flat at a value of 9 each. Chest x-ray also revealed no acute lung pathology. Patient was pain-free upon arrival to the ER and remained that way of her entire ER stay. Even the patient does have risk factors for cardiovascular disease the fact that she is pain-free and has had normal troponins goes against need for emergent cardiac workup such as emergent stress test echo or heart cath and therefore she can be discharged home and follow-up with her industrial court magistrate on outpatient basis to obtain these further tests History & Record Review Discussion w/independent historian: Patient Lab Data Attestation: I reviewed the patient's lab results. Labs: Laboratory Results - last 24 hr 08/25/23 08/26/23 22:10 00:17 WBC 9.2 RBC 5.08 Hgb 12.4 Hct 40.9 MCV 80.5 L MCH 24.4 L MCHC 30.3 L RDW Std Deviation 48.4 H RDW Coeff of Jossy 16.6 H Plt Count 279 MPV 11.4 Immature Gran % (Auto) 1.000 H Neut % (Auto) 59.0 Lymph % (Auto) 28.7 [place] % (Auto) 8.7 Eos % (Auto) 2.2 Baso % (Auto) 0.4 Absolute Neuts (auto) 5.4 Absolute Lymphs (auto) 2.64 Nucleated RBC % 0 Sodium 139 Potassium 3.3 L Chloride 104 Carbon Dioxide 32.0 Anion Gap 3 L BUN 7 Creatinine 0.75 Estim Creat Clear Calc 73.41 Est GFR (MDRD) Af Amer 104 Est GFR (MDRD) Non-Af 86 BUN/Creatinine Ratio 9.3 L Glucose 121 H Calcium 8.7 Magnesium 1.8 Troponin I High Sens 9 9 Radiography Diagnostic Testing: Clinical Impression(s) from Imaging Studies Chest X-Ray 08/25/23 21:35 IMPRESSION: Slight blunting of the left lateral costophrenic angle, possibly trace effusion. Otherwise stable chest. Electronically Signed: Alexa Sarmiento MD at 0:57 EST Reading Location ID and State: [facility] / [place] Tel , Service support , Chest x-ray as interpreted by the emergency medicine physician reveals no acute infiltrate or pneumothorax or widening of the mediastinum Discharge Plan Triage Chief Complaint: Chest Pain ED Provider: Rafael Boyd Dx/Rx/DC Orders Clinical Impression: Nonspecific chest pain, Insulin dependent diabetes mellitus, Essential (primary) hypertension, Mixed hyperlipidemia Instructions: ED Chest Pain, Uncertain Cause Prescriptions: No Action Ventolin HFA 90 mcg/actuation HFA aerosol inhaler 2 puff INHALATION Q6H PRN (Reason: Sob &/Or Wheezing) nitroglycerin 0.4 mg tablet, sublingual 0.4 mg sublingual Q5-15M Qty: 25 6RF (DME) Dexcom G7 Sensor Device See Rx Instructions .Route Qty: 3 6RF Rx Instructions: daily Mounjaro 5 mg/0.5 mL pen injector 5 mg subcut QWEEK Qty: 2 4RF cetirizine 10 mg tablet 10 mg PO DAILY Patient Comments: TAKE 1 TABLET BY MOUTH EVERY DAY NEEDED Invega Sustenna 234 mg/1.5 mL syringe 234 mg IM Q30D propranolol 10 mg tablet 10 mg PO BID tiotropium bromide [Spiriva with HandiHaler] 18 mcg capsule, w/inhalation device 1 cap inhalation DAILY Rx Instructions: puncture 1 cap using device; one dose = 2 inhalations (DME) Assure ID Insulin Safety 0.5 mL 31 gauge x 15/64 syringe See Rx Instructions .Route Qty: 100 0RF Rx Instructions: As directed (DME) pen needle, diabetic [1st Tier Unifine Pentips Plus] 31 gauge x 3/16 needle See Rx Instructions .Route Qty: 100 0RF Rx Instructions: daily Januvia 100 mg tablet 100 mg PO DAILY Qty: 90 1RF ondansetron 4 mg tablet,disintegrating 4 mg PO Q8H Patient Comments: TAKE 1 TABLET BY MOUTH EVERY 8 HOURS FOR 5 DAYS albuterol sulfate 2.5 mg /3 mL (0.083 %) solution for nebulization 2.5 mg continuous nebulization Q4H Patient Comments: USE 3 ML IN NEBULIZER EVERY 4 HOURS NEEDED FOR WHEEZING AND FOR SHORTNESS OF BREATH baclofen 10 mg tablet 10 mg PO DAILY sertraline 25 mg tablet 25 mg PO DAILY Patient Comments: TAKE 1 TABLET BY MOUTH DAILY Spiriva Respimat 2.5 mcg/actuation mist 2 puff INHALATION DAILY Patient Comments: Inhale 2 Puffs as instructed once daily. atorvastatin 40 mg tablet 80 mg PO DAILY Primary Care Provider: Lissette Hernandez Referrals: Lissette Hernandez MD [Primary Care Provider] - Activity Restrictions/Additional Instructions: Your workup today showed 2 normal troponins of 9 each going against active cardiac damage or lack of blood flow. However you do have multiple risk factors for cardiovascular disease and therefore contact your industrial court magistrate to discuss an outpatient workup such as stress test or heart cath. If your symptoms return or you have any further concerns please return to the ER for repeat evaluation Disposition Disposition: Home, Self Care Discharge Date/Time: 08/26/23 01:16
== END 2023-08-26 01:16 | disposition home or self-care (01) ==
PROVIDERS: Emergency Provider Emergency Medicine; PCP Internal Medicine; Visit Provider Emergency Medicine
DX: R07.9 Chest pain, unspecified (principal); J44.9 Chronic obstructive pulmonary disease, unspecified; E11.9 Type 2 diabetes mellitus without complications; Z79.4 Long term (current) use of insulin; F17.210 Nicotine dependence, cigarettes, uncomplicated; E78.2 Mixed hyperlipidemia; I10 Essential (primary) hypertension; G47.33 Obstructive sleep apnea (adult) (pediatric); Z79.899 Other long term (current) drug therapy
CPT/HCPCS: 71046; 80048; 83735; 84484; 85025; 93005; 99285; A4216

== ENCOUNTER → 2023-11-25 | Outpatient (CLI) | payer MEDICAID, SELFPAY | END | disposition home or self-care (01) | LOC: LABSPEC 09:44 | PROVIDERS: PCP Internal Medicine; Visit Provider Physician Assistant | DX: R68.89 Other general symptoms and signs (principal) | CPT/HCPCS: 87631 ==

== ENCOUNTER 2023-12-03 17:20 | Emergency (ER) | payer MEDICAID, SELFPAY ==
[2023-12-03] VITALS (26 sets, daily range): BP systolic 119–161; BP diastolic 66–106; PULSE 78–90; RESP 11–30; TEMP 36.4–36.6; O2SAT 88–97; BMI 33.2
--- NOTE | 2023-12-03 18:36 | EDS_ITS ---
HPI <ADAM Rendon - Last Filed: 12/03/23 21:17> History of Present Illness Chief Complaint: Shortness of Breath Narrative Narrative: Presenting today due to a nonproductive cough and shortness of breath that she has had over the past 4 days. She reports that she was recently diagnosed with influenza A after being exposed to a family member. Her PCP started her on doxycycline and prednisone. Her symptoms did seem to resolve until few days ago and they got worse. She reports midsternal chest discomfort with coughing. She has a history of COPD and does still smoke. She does wear supplemental O2 at night, she had been using it throughout the day today to help with her symptoms. She denies any fevers, chills, history of blood clots, recent surgery/procedures/travel/immobilization. <Dr. Chris Yin DO - Last Filed: 12/03/23 22:15> Narrative Narrative: Presenting today due to a nonproductive cough and shortness of breath that she has had over the past 4 days. She reports that she was recently diagnosed with influenza A after being exposed to a family member. Her PCP started her on doxycycline and prednisone. Her symptoms did seem to resolve until few days ago and they got worse. She reports midsternal chest discomfort with coughing. She has a history of COPD and does still smoke. She does wear supplemental O2 at night, she had been using it throughout the day today to help with her symptoms. She denies any fevers, chills, history of blood clots, recent surgery/procedures/travel/immobilization. The patient denies recent surgery in the last 4 weeks or immobilization in the last 3 days, denies previous diagnosis of DVT or PE, hemoptysis, unilateral leg swelling or malignancy with treatment the last 6 months or palliative. No estrogen use noted. [facility] <ADAM Rendon - Last Filed: 12/03/23 21:17> [facility] Medical History Allergic rhinitis Anxiety and depression Asthma Bilateral chronic serous otitis media Bilateral hearing loss Bilateral tinnitus Chronic maxillary sinusitis Congenital pulmonary arteriovenous malformation Constipation COPD (chronic obstructive pulmonary disease) Degenerative disc disease Dependence on nocturnal oxygen therapy Environmental allergies Essential (primary) hypertension Fatty liver Hepatic lesion History of pancreatitis History of suicidal ideation Hypertriglyceridemia Liver cyst Low HDL (under 40) Menopause Murmur Nodule of right lung Obesity Obstructive sleep apnea Onychomycosis Paresthesia of both feet Premature ventricular contractions Psychotic disorder PTSD (post-traumatic stress disorder) Restless leg syndrome Type II diabetes mellitus with peripheral circulatory disorder Home Medications albuterol sulfate 90 mcg/actuation aerosol inhaler (Ventolin HFA) 2 puff inhalation Q6H PRN Sob &/Or Wheezing 07/19/18 [History Last Taken Unknown] nitroglycerin 0.4 mg sublingual tablet 0.4 mg sublingual Q5-15M chest pain #25 TABLETS 07/20/19 [Rx Last Taken Unknown] cetirizine 10 mg tablet 10 mg PO DAILY 06/02/23 [History Last Taken Unknown] insulin syringe,safetyneedle 0.5 mL 31 gauge x 15/64 (Assure ID Insulin Safety) #100 ea 06/02/23 [Rx Last Taken Unknown] paliperidone palmitate 234 mg/1.5 mL intramuscular syringe (Invega Sustenna) 234 mg IM Q30D 06/02/23 [History Last Taken Unknown] propranolol 10 mg tablet 10 mg PO BID 06/02/23 [History Last Taken Unknown] pen needle, diabetic 31 gauge x 3/16 (1st Tier Unifine Pentips Plus) #100 ea 06/08/23 [Rx Last Taken Unknown] sitagliptin phosphate 100 mg tablet (Januvia) 100 mg PO DAILY #90 tabs 07/21/23 [Rx Last Taken Unknown] Dexcom G7 Sensor (blood-glucose sensor) #3 ea 08/24/23 [Rx Last Taken Unknown] Mounjaro 5 mg/0.5 mL subcutaneous pen injector (tirzepatide) 5 mg (0.5 mL) subcut QWEEK #2 mL 08/24/23 [Rx Last Taken Unknown] albuterol sulfate 2.5 mg/3 mL (0.083 %) solution for nebulization 2.5 mg continuous nebulization Q4H sob and wheezing 08/25/23 [History Last Taken Unknown] atorvastatin 40 mg tablet 80 mg PO DAILY hyperlipidemia 08/25/23 [History Last Taken Unknown] baclofen 10 mg tablet 10 mg PO DAILY 08/25/23 [History Last Taken Unknown] ondansetron 4 mg disintegrating tablet 4 mg PO Q8H 08/25/23 [History Last Taken Unknown] sertraline 25 mg tablet 25 mg PO DAILY 08/25/23 [History Last Taken Unknown] omeprazole 40 mg capsule,delayed release 40 mg PO DAILY #90 caps 10/12/23 [Rx Last Taken Unknown] fluticasone propionate 50 mcg/actuation nasal spray,suspension (Children's Flonase Allergy Relief) 1 spray intranasal DAILY #16 grams 11/12/23 [Rx Last Taken Unknown] doxycycline hyclate 100 mg capsule 100 mg PO BID #20 caps 11/25/23 [Rx Last Taken Unknown] guaifenesin 600 mg tablet, extended release 12 hr 1,200 mg (2 x 600 mg) PO BID #14 tabs 11/25/23 [Rx Last Taken Unknown] prednisone 20 mg tablet 20 mg PO BID #12 tabs 11/25/23 [Rx Last Taken Unknown] tiotropium bromide 2.5 mcg/actuation mist for inhalation (Spiriva Respimat) 2 puff inhalation DAILY copd #4 grams 11/25/23 [Rx Last Taken Unknown] Allergy/AdvReac Type Severity Reaction Status Date / Time sucralfate Allergy Severe throat Verified 12/03/23 17:20 swelling divalproex sodium Allergy Intermediate Rash Verified 12/03/23 17:20 [From Depakote] Penicillins Allergy Intermediate Rash Verified 12/03/23 17:20 amoxicillin trihydrate Allergy Unknown Verified 12/03/23 17:20 [From Augmentin] potassium clavulanate Allergy Unknown Verified 12/03/23 17:20 [From Augmentin] ranitidine HCl [From Zantac] Allergy Unknown Verified 12/03/23 17:20 codeine AdvReac Intermediate Nausea and Verified 12/03/23 17:20 vomiting hydrocodone [From Vicodin] AdvReac Intermediate Nausea and Verified 12/03/23 17:20 vomiting isosorbide AdvReac Intermediate headache Verified 12/03/23 17:20 linagliptin [From Tradjenta] AdvReac Intermediate Vomiting Verified 12/03/23 17:20 Family History Mother COPD (chronic obstructive pulmonary disease) CAD (coronary artery disease) Diabetes Hypertension Cancer skin Sarcoidosis Father CAD (coronary artery disease) Hypertension CVA (cerebral vascular accident) Surgical History History of appendectomy (2002) History of cholecystectomy (12/27/12) History of hysterectomy (2000) History of left heart catheterization (07/25/19) Social History household members: spouse and other details: grandson current occupational status: disabled 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 Smoking Status: Current every day smoker tobacco type: cigarettes Tobacco: How many years used: 35 Electronic Cigarette Use: not used alcohol intake: never substance use type: does not use caffeine: No what type of physical activity do you participate in: none do you feel safe at home: Yes ROS <ADAM Rendon - Last Filed: 12/03/23 21:17> ROS ED Constitutional Constitutional ED: Denies chills or fever(s) Cardiovascular Cardiovascular: Denies chest pain or palpitations Respiratory/Chest Respiratory/Chest: Reports cough, dyspnea and dyspnea on exertion Gastrointestinal Gastrointestinal: Denies abdominal pain, nausea or vomiting Musculoskeletal Musculoskeletal: Denies arthralgias or myalgias Integumentary Denies rash Neurologic Neurologic: Denies weakness EXAM <ADAM Rendon - Last Filed: 12/03/23 21:17> Physical Exam Const Vital Signs: 12/03/23 17:21 12/03/23 17:54 12/03/23 18:46 Temperature 98 F Temperature Source Temporal Pulse Rate 88 85 80 Respiratory Rate 16 23 H 17 Respiratory Effort Respiratory Depth Respiratory Pattern Blood Pressure 140/73 H 153/81 H 161/78 H Blood Pressure Mean 95 105 105 Pulse Ox 88 94 95 Oxygen Delivery Method Room Air Room Air Room Air 12/03/23 18:46 12/03/23 18:49 12/03/23 18:48 Temperature Temperature Source Pulse Rate 90 Respiratory Rate 22 H Respiratory Effort Normal Respiratory Depth Normal Respiratory Pattern Tachypnea Blood Pressure Blood Pressure Mean Pulse Ox 96 Oxygen Delivery Method Room Air Room Air 12/03/23 19:00 12/03/23 17:45 12/03/23 17:50 Temperature Temperature Source Pulse Rate 84 89 Respiratory Rate 22 H 20 H Respiratory Effort Respiratory Depth Respiratory Pattern Blood Pressure 151/84 H Blood Pressure Mean 106 Pulse Ox 93 94 94 Oxygen Delivery Method Room Air 12/03/23 17:52 12/03/23 18:00 12/03/23 18:10 Temperature Temperature Source Pulse Rate 85 81 84 Respiratory Rate 20 H 21 H 22 H Respiratory Effort Respiratory Depth Respiratory Pattern Blood Pressure 153/81 H 161/78 H Blood Pressure Mean 102 102 Pulse Ox 92 92 91 Oxygen Delivery Method 12/03/23 18:46 12/03/23 18:47 12/03/23 18:50 Temperature Temperature Source Pulse Rate 82 80 82 Respiratory Rate 30 H 17 17 Respiratory Effort Respiratory Depth Respiratory Pattern Blood Pressure 158/66 H Blood Pressure Mean 92 Pulse Ox 94 95 93 Oxygen Delivery Method 12/03/23 19:00 12/03/23 19:10 12/03/23 19:20 Temperature Temperature Source Pulse Rate Respiratory Rate Respiratory Effort Respiratory Depth Respiratory Pattern Blood Pressure 135/76 H Blood Pressure Mean 94 Pulse Ox 97 93 93 Oxygen Delivery Method 12/03/23 20:53 12/03/23 19:30 12/03/23 19:45 Temperature 97.5 F L Temperature Source Pulse Rate 78 80 Respiratory Rate 16 18 Respiratory Effort Respiratory Depth Respiratory Pattern Blood Pressure 131/80 H 148/84 H 119/90 H Blood Pressure Mean 97 104 97 Pulse Ox 95 92 Oxygen Delivery Method 12/03/23 19:49 12/03/23 19:50 12/03/23 20:00 Temperature Temperature Source Pulse Rate 82 Respiratory Rate 14 Respiratory Effort Respiratory Depth Respiratory Pattern Blood Pressure 140/106 H Blood Pressure Mean 113 Pulse Ox 95 93 96 Oxygen Delivery Method 12/03/23 20:10 12/03/23 20:15 12/03/23 20:20 Temperature Temperature Source Pulse Rate 78 79 81 Respiratory Rate 17 18 21 H Respiratory Effort Respiratory Depth Respiratory Pattern Blood Pressure 134/71 H Blood Pressure Mean 89 Pulse Ox 93 94 94 Oxygen Delivery Method 12/03/23 20:30 12/03/23 20:40 Temperature Temperature Source Pulse Rate 79 79 Respiratory Rate 11 L 18 Respiratory Effort Respiratory Depth Respiratory Pattern Blood Pressure 131/80 H Blood Pressure Mean 95 Pulse Ox 95 93 Oxygen Delivery Method Positive well nourished, well developed and no apparent distress General Appearance ED: well developed HEENT Reports normocephalic and head/scalp atraumatic Mouth ED: Yes moist mucous membranes normal Eyes PERRL and EOMs intact bilaterally Neck full ROM and supple Chest Wall inspection of chest normal Resp normal respiratory effort and clear to auscultation bilaterally Cardio regular rate and regular rhythm GI soft to palpation, non-tender, non-distended and no masses Back/Spine normal ROM and normal to inspection Extremity normal to inspection and full ROM Neuro oriented x3, CN's II-XII intact bilaterally, moves all extremities, no focal motor deficits and no sensory deficits noted Sensorium / Orientation: awake and alert Psych mental status grossly normal and thought process normal Skin no rashes or lesions noted and no wounds <Dr. Chris Yni, DO - Last Filed: 12/03/23 22:15> Physical Exam Const Vital Signs: 12/03/23 17:21 12/03/23 17:54 12/03/23 18:46 Temperature 98 F Temperature Source Temporal Pulse Rate 88 85 80 Respiratory Rate 16 23 H 17 Respiratory Effort Respiratory Depth Respiratory Pattern Blood Pressure 140/73 H 153/81 H 161/78 H Blood Pressure Mean 95 105 105 Pulse Ox 88 94 95 Oxygen Delivery Method Room Air Room Air Room Air 12/03/23 18:46 12/03/23 18:49 12/03/23 18:48 Temperature Temperature Source Pulse Rate 90 Respiratory Rate 22 H Respiratory Effort Normal Respiratory Depth Normal Respiratory Pattern Tachypnea Blood Pressure Blood Pressure Mean Pulse Ox 96 Oxygen Delivery Method Room Air Room Air 12/03/23 19:00 12/03/23 17:45 12/03/23 17:50 Temperature Temperature Source Pulse Rate 84 89 Respiratory Rate 22 H 20 H Respiratory Effort Respiratory Depth Respiratory Pattern Blood Pressure 151/84 H Blood Pressure Mean 106 Pulse Ox 93 94 94 Oxygen Delivery Method Room Air 12/03/23 17:52 12/03/23 18:00 12/03/23 18:10 Temperature Temperature Source Pulse Rate 85 81 84 Respiratory Rate 20 H 21 H 22 H Respiratory Effort Respiratory Depth Respiratory Pattern Blood Pressure 153/81 H 161/78 H Blood Pressure Mean 102 102 Pulse Ox 92 92 91 Oxygen Delivery Method 12/03/23 18:46 12/03/23 18:47 12/03/23 18:50 Temperature Temperature Source Pulse Rate 82 80 82 Respiratory Rate 30 H 17 17 Respiratory Effort Respiratory Depth Respiratory Pattern Blood Pressure 158/66 H Blood Pressure Mean 92 Pulse Ox 94 95 93 Oxygen Delivery Method 12/03/23 19:00 12/03/23 19:10 12/03/23 19:20 Temperature Temperature Source Pulse Rate Respiratory Rate Respiratory Effort Respiratory Depth Respiratory Pattern Blood Pressure 135/76 H Blood Pressure Mean 94 Pulse Ox 97 93 93 Oxygen Delivery Method 12/03/23 20:53 12/03/23 19:30 12/03/23 19:45 Temperature 97.5 F L Temperature Source Pulse Rate 78 80 Respiratory Rate 16 18 Respiratory Effort Respiratory Depth Respiratory Pattern Blood Pressure 131/80 H 148/84 H 119/90 H Blood Pressure Mean 97 104 97 Pulse Ox 95 92 Oxygen Delivery Method 12/03/23 19:49 12/03/23 19:50 12/03/23 20:00 Temperature Temperature Source Pulse Rate 82 Respiratory Rate 14 Respiratory Effort Respiratory Depth Respiratory Pattern Blood Pressure 140/106 H Blood Pressure Mean 113 Pulse Ox 95 93 96 Oxygen Delivery Method 12/03/23 20:10 12/03/23 20:15 12/03/23 20:20 Temperature Temperature Source Pulse Rate 78 79 81 Respiratory Rate 17 18 21 H Respiratory Effort Respiratory Depth Respiratory Pattern Blood Pressure 134/71 H Blood Pressure Mean 89 Pulse Ox 93 94 94 Oxygen Delivery Method 12/03/23 20:30 12/03/23 20:40 Temperature Temperature Source Pulse Rate 79 79 Respiratory Rate 11 L 18 Respiratory Effort Respiratory Depth Respiratory Pattern Blood Pressure 131/80 H Blood Pressure Mean 95 Pulse Ox 95 93 Oxygen Delivery Method MDM <ADAM Rendon - Last Filed: 12/03/23 21:17> [facility] Narrative Medical decision making narrative: Patient presenting due to shortness of breath and a cough that she has had for the past 4 days. Over a week ago she was exposed to influenza A and began having flulike symptoms, her PCP covered her with doxycycline and prednisone given her COPD history. She did seem to get better for a few days. She is nontoxic-appearing and in no acute distress. She will be given breathing treatments and workup will be obtained to rule out leukocytosis, anemia, electrolyte abnormality, and ACS. Chest x-ray will be obtained to rule out infiltrate and other cardiopulmonary abnormality. Labs overall are unremarkable, chest x-ray shows a small right pleural effusion. On reexamination she reports provide of her symptoms. Given she does have O2 at home, I do feel comfortable with her being discharged home. She does have a follow-up appointment with her PCP tomorrow. Given she was just recently on steroids, I do not want to write for more. She will be discharged home in stable condition and is comfortable with plan. Lab Data Attestation: I reviewed the patient's lab results. Labs: Laboratory Results - last 24 hr 12/03/23 17:50 WBC 7.7 RBC 4.49 Hgb 12.3 Hct 38.5 MCV 85.7 MCH 27.4 MCHC 31.9 L RDW Std Deviation 51.9 H RDW Coeff of Jossy 16.5 H Plt Count 215 MPV 11.0 Immature Gran % (Auto) 0.600 Neut % (Auto) 65.9 Lymph % (Auto) 23.8 [place] % (Auto) 7.6 Eos % (Auto) 1.7 Baso % (Auto) 0.4 Absolute Neuts (auto) 5.1 Absolute Lymphs (auto) 1.84 Nucleated RBC % 0 Sodium 141 Potassium 3.5 Chloride 106 Carbon Dioxide 32.0 Anion Gap 3 L BUN 5 L Creatinine 0.72 Estim Creat Clear Calc 98.25 Est GFR (MDRD) Af Amer 109 Est GFR (MDRD) Non-Af 90 BUN/Creatinine Ratio 6.9 L Glucose 186 H Calcium 8.8 Troponin I High Sens 8 Radiography X-Ray: Read by ED Physician Diagnostic Testing: Clinical Impression(s) from Imaging Studies Chest X-Ray 12/03/23 19:38 IMPRESSION: Tiny right pleural effusion. Electronically Signed: Km Francisco MD at 20:04 EDT , EKG Initial EKG: Comments: 84 bpm, normal sinus rhythm, no ST elevation, reviewed and interpreted by attending ED physician <Dr. Chris Yin, DO - Last Filed: 12/03/23 22:15> [facility] Lab Data Labs: Laboratory Results - last 24 hr 12/03/23 17:50 WBC 7.7 RBC 4.49 Hgb 12.3 Hct 38.5 MCV 85.7 MCH 27.4 MCHC 31.9 L RDW Std Deviation 51.9 H RDW Coeff of Jossy 16.5 H Plt Count 215 MPV 11.0 Immature Gran % (Auto) 0.600 Neut % (Auto) 65.9 Lymph % (Auto) 23.8 [place] % (Auto) 7.6 Eos % (Auto) 1.7 Baso % (Auto) 0.4 Absolute Neuts (auto) 5.1 Absolute Lymphs (auto) 1.84 Nucleated RBC % 0 Sodium 141 Potassium 3.5 Chloride 106 Carbon Dioxide 32.0 Anion Gap 3 L BUN 5 L Creatinine 0.72 Estim Creat Clear Calc 98.25 Est GFR (MDRD) Af Amer 109 Est GFR (MDRD) Non-Af 90 BUN/Creatinine Ratio 6.9 L Glucose 186 H Calcium 8.8 Troponin I High Sens 8 Radiography Diagnostic Testing: Clinical Impression(s) from Imaging Studies Chest X-Ray 12/03/23 19:38 IMPRESSION: Tiny right pleural effusion. Electronically Signed: Km Francisco MD at 20:04 EDT , Discharge Plan Triage Chief Complaint: Shortness of Breath ED Midlevel Provider: Stefany Fox ED Provider: Chris Yin Dx/Rx/DC Orders Clinical Impression: Shortness of breath, COPD (chronic obstructive pulmonary disease) Instructions: ED COPD Flare Prescriptions: No Action Ventolin HFA 90 mcg/actuation HFA aerosol inhaler 2 puff INHALATION Q6H PRN (Reason: Sob &/Or Wheezing) nitroglycerin 0.4 mg tablet, sublingual 0.4 mg sublingual Q5-15M Qty: 25 6RF (DME) BabyFirstTVcom G7 Sensor Device See Rx Instructions .Route Qty: 3 6RF Rx Instructions: daily Mounjaro 5 mg/0.5 mL pen injector 5 mg subcut QWEEK Qty: 2 4RF cetirizine 10 mg tablet 10 mg PO DAILY Patient Comments: TAKE 1 TABLET BY MOUTH EVERY DAY NEEDED Invega Sustenna 234 mg/1.5 mL syringe 234 mg IM Q30D propranolol 10 mg tablet 10 mg PO BID (DME) Assure ID Insulin Safety 0.5 mL 31 gauge x 15/64 syringe See Rx Instructions .Route Qty: 100 0RF Rx Instructions: As directed (DME) pen needle, diabetic [1st Tier Unifine Pentips Plus] 31 gauge x 3/16 needle See Rx Instructions .Route Qty: 100 0RF Rx Instructions: daily Januvia 100 mg tablet 100 mg PO DAILY Qty: 90 1RF omeprazole 40 mg capsule,delayed release(DR/EC) 40 mg PO DAILY Qty: 90 1RF fluticasone propionate [Children's Flonase Allergy Rlf] 50 mcg/actuation spray,suspension 1 spray intranasal DAILY Qty: 16 0RF Rx Instructions: administer into each nostril Spiriva Respimat 2.5 mcg/actuation mist 2 puff INHALATION DAILY Qty: 4 0RF prednisone 20 mg tablet 20 mg PO BID Qty: 12 0RF doxycycline hyclate 100 mg capsule 100 mg PO BID Qty: 20 0RF guaifenesin 600 mg tablet extended release 12hr 1,200 mg PO BID Qty: 14 0RF ondansetron 4 mg tablet,disintegrating 4 mg PO Q8H Patient Comments: TAKE 1 TABLET BY MOUTH EVERY 8 HOURS FOR 5 DAYS albuterol sulfate 2.5 mg /3 mL (0.083 %) solution for nebulization 2.5 mg continuous nebulization Q4H Patient Comments: USE 3 ML IN NEBULIZER EVERY 4 HOURS NEEDED FOR WHEEZING AND FOR SHORTNESS OF BREATH baclofen 10 mg tablet 10 mg PO DAILY sertraline 25 mg tablet 25 mg PO DAILY Patient Comments: TAKE 1 TABLET BY MOUTH DAILY atorvastatin 40 mg tablet 80 mg PO DAILY Primary Care Provider: Lissette Hernandez Referrals: Lissette Hernandez MD [Primary Care Provider] - 3-5 Days Activity Restrictions/Additional Instructions: Follow-up with your PCP and return for any worsening of your symptoms. Disposition Disposition: Home, Self Care Discharge Date/Time: 12/03/23 20:54
[2023-12-03 18:46] LABS: Absolute Lymphocyte Count 1.84 X10^3/uL (0.83-4.51); Absolute Neutrophil Count 5.1 X10^3/uL (2.0-7.7); Basophil# 0.03 X10^3/uL; Basophil% 0.4 % (0-1); Eosinophil# 0.13 X10^3/uL; Eosinophils% 1.7 % (0-5); Hematocrit 38.5 % (37-47); Hemoglobin 12.3 g/dL (12.0-15.0); Lymphocyte # 1.84 X10^3/ul (0.83-4.51); Lymphocyte % 23.8 % (19-41); Mean Corp Hgb Conc 31.9 g/dL (32-36); Mean Corpuscular Hgb 27.4 pg (27.0-32.0); Mean Corpuscular Volume 85.7 fL (81-99); Monocyte# 0.59 X10^3/uL; Monocyte% 7.6 % (0-10); NRBC Flagged by Analyzer 0 % (0-5); Neutrophil % 65.9 % (47-70); Platelet Count 215 K/mm3 (150-450); RBC Distribution Width CV 16.5 % (11.6-14.6); RBC Distribution Width SD 51.9 fl (35.1-43.9); Red Blood Count 4.49 M/mm3 (4.2-5.4); White Blood Count 7.7 K/mm3 (4.4-11.0)
[2023-12-03] MEDS: Ipratropium/Albuterol Sulfate 3 ML AMPUL.NEB INHALATION (18:48)
[2023-12-03] MEDS: Albuterol 2.5 MG/3 ML VIAL.NEB. INHALATION (18:48)
[2023-12-03 19:05] LABS: Anion Gap 3 (5-15); BUN 5 mg/dL (7-18); BUN/Creat Ratio 6.9 RATIO (10-20); Calcium,Total 8.8 mg/dL (8.5-10.1); Chloride 106 mmol/L (98-107); Creatinine, Serum 0.72 mg/dL (0.55-1.02); EST Glomerular Filtration Rate 90 mL/min (>60); Est Glom Filt Rate - Afr Amer 109 mL/min (>60); Estimated Creatinine Clearance 98.25 ml/min; Glucose 186 mg/dL (74-106); Potassium 3.5 mmol/L (3.5-5.1); Sodium Level 141 mmol/L (136-145); Troponin-I HS 8 pg/mL (3.0-54.0)
--- NOTE | 2023-12-03 19:15 | CPS ---
x1 Albuterol given to pt. in ER as well
--- NOTE | 2023-12-03 19:38 | RAD_ITS ---
STUDY: X-RAY CHEST REASON FOR EXAM: Female, 53 years old. chest pain TECHNIQUE: PA and lateral views of the chest. COMPARISON: 08/25/2023 FINDINGS: The lungs are clear and expanded. Tiny right pleural effusion. Normal size heart. Normal mediastinum and mark. Normal visualized pulmonary arteries. Normal visualized aortic arch and descending thoracic aorta. Normal visualized thoracic spine. Normal visualized ribs, clavicles, and shoulders. Suspect bilateral cervical ribs. There is no demonstrated abnormality of the visualized soft tissue structures of the upper abdomen. RAD/Chest PA and Lateral IMPRESSION: Tiny right pleural effusion. Electronically Signed: Km Francisco MD at 20:04 EDT ,
== END 2023-12-03 20:54 | disposition home or self-care (01) ==
PROVIDERS: Physician Assistant; Emergency Provider Emergency Medicine; PCP Internal Medicine; Visit Provider Emergency Medicine
DX: R06.02 Shortness of breath (principal); J44.9 Chronic obstructive pulmonary disease, unspecified; F17.210 Nicotine dependence, cigarettes, uncomplicated; G47.33 Obstructive sleep apnea (adult) (pediatric); Z99.81 Dependence on supplemental oxygen
CPT/HCPCS: 71046; 80048; 84484; 85025; 93005; 94640; 99284; A4216

== ENCOUNTER → 2023-12-31 | Outpatient (CLI) | payer MEDICAID, SELFPAY ==
[2023-12-31 09:58] LABS: Cholesterol 180 mg/dL (200); High Density Lipoprotein 25 mg/dL; Thyroid Stim Hormone (TSH) 2.82 uIU/mL (0.358-3.74); Triglycerides 231 mg/dL; Very Low Density Lipoprotein 46 mg/dL (5-40)
[2024-01-01 04:07] LABS: Thyroid Peroxidase AB < 9 IU/mL (0-34)
== END | disposition home or self-care (01) ==
LOC: LAB 08:48
PROVIDERS: PCP Internal Medicine; Referring Provider Internal Medicine Endocrinology, Diabetes & Metabolism; Visit Provider Internal Medicine Endocrinology, Diabetes & Metabolism
DX: E11.51 Type 2 diabetes mellitus with diabetic peripheral angiopathy without gangrene (principal); I10 Essential (primary) hypertension; E78.2 Mixed hyperlipidemia; E04.9 Nontoxic goiter, unspecified; E66.9 Obesity, unspecified
CPT/HCPCS: 36415; 80061; 84439; 84443; 86376

== ENCOUNTER → 2024-01-07 | Outpatient (CLI) | payer MEDICAID, SELFPAY | END | disposition home or self-care (01) | LOC: LABSPEC 08:56 | PROVIDERS: PCP Internal Medicine; Referring Provider Internal Medicine; Visit Provider Internal Medicine | DX: R68.89 Other general symptoms and signs (principal) | CPT/HCPCS: 87634; 87635 ==

== ENCOUNTER → 2024-02-05 | Outpatient (CLI) | payer MEDICAID, SELFPAY ==
--- NOTE | 2024-02-05 13:43 | RAD_ITS ---
ACR Level 3 findings have been noted. An addendum which confirms receipt of the report will follow. INDICATION: productive cough, fever EXAMINATION/TECHNIQUE: X-RAY - XR Chest 2 Views COMPARISON: 12/03/2023 FINDINGS: LINES/DEVICES: None. LUNGS: No consolidation, edema or effusion. No pneumothorax. Stable 9 mm nodular opacity which projects over the right fourth anterior rib end. MEDIASTINUM AND CARDIOVASCULAR STRUCTURES: Cardiac silhouette not enlarged. Central airways and mediastinal contour are unremarkable. BONES AND SOFT TISSUES: No acute changes. RAD/Chest PA and Lateral IMPRESSION: No radiographic evidence of acute cardiopulmonary disease. Stable 9 mm peripheral nodule in the right mid lung. If not previously evaluated, chest CT with contrast is recommended to exclude parenchymal nodule, possible neoplasia. Electronically Signed: Arnulfo Franco MD at 22:57 EDT ,
== END | disposition home or self-care (01) ==
LOC: MTRAD 13:43
PROVIDERS: PCP Internal Medicine; Referring Provider Nurse Practitioner; Visit Provider Nurse Practitioner
DX: J44.0 Chronic obstructive pulmonary disease with (acute) lower respiratory infection (principal); J20.9 Acute bronchitis, unspecified
CPT/HCPCS: 71046

== ENCOUNTER → 2024-04-06 | Outpatient (CLI) | payer MEDICAID, SELFPAY ==
--- NOTE | 2024-04-06 07:53 | BI_ITS ---
MAMMOGRAPHY - BILATERAL SCREENING REASON FOR EXAM: Female, 53 years old. Routine annual screening examination. PERTINENT HISTORY: Non-contributory. TECHNIQUE: Digital bilateral breast shasha (3D mammographic acquisition) in the CC and MLO projections. 2-D mediolateral oblique (MLO) and craniocaudad (CC) views of both breasts were obtained. CAD: Full Field Digital Mammography with Computer Added Detection was performed. COMPARISON: Comparison is made with prior study dated February 15, 2021. FINDINGS: Breast Composition: The breasts are almost entirely fatty. There are no dominant masses or suspicious calcifications. No other significant abnormalities are identified. There has been no significant change since the prior study. BI/SCRN MAMM (CAD)W/SHASHA BILAT IMPRESSION: Stable bilateral screening mammogram. Yearly follow-up mammogram recommended. (A) ASSESSMENT CATEGORY: BIRADS Category 1: Negative. A letter regarding these results will be sent to the patient by the facility within 30 days. Approximately 10% of breast cancers are not detected by mammography. A normal mammogram should not delay biopsy of a clinically suspicious abnormality. [id number] Electronically Signed: Dwight Martinez MD at 9:10 EDT ,
== END | disposition home or self-care (01) ==
LOC: OPBI 07:53
PROVIDERS: PCP Internal Medicine; Referring Provider Internal Medicine; Visit Provider Internal Medicine
DX: Z12.31 Encounter for screening mammogram for malignant neoplasm of breast (principal)
CPT/HCPCS: 77063; 77067

== ENCOUNTER 2024-07-25 19:44 | Emergency (ER) | payer MEDICAID, SELFPAY ==
[2024-07-25 19:44] VITALS: BP 144/78; PULSE 93; RESP 16; RESP 18; TEMP 37; O2SAT 98; BMI 32.5
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
[2024-07-25] MEDS: Morphine 4 MG/ML Syringe IM (20:26)
--- NOTE | 2024-07-25 20:35 | CT_ITS ---
STUDY: CT CERVICAL SPINE WITHOUT CONTRAST REASON FOR EXAM: Female, 53 years old. Injury/Pain RADIATION DOSAGE (If Supplied By Facility): CTDIvol = ( 24.47 ) mGy, DLP = ( 508.69 ) mGycm TECHNIQUE: High resolution transaxial imaging was performed without contrast material. Sagittal and coronal images were reconstructed. Individualized dose optimization techniques were used for this CT. COMPARISON: None FINDINGS: Normal craniovertebral junction. Normal anterior atlantoaxial articulation. Normal odontoid process. Straightening of the cervical lordosis. Normal vertebral bodies and posterior osseous elements. C2-3: Normal endplates. Normal disc height and morphology. Normal central canal. Uncovertebral spurring narrowing the right intervertebral neural foramen. C3-4: Bridging osteophytes at the endplates. Normal disc height and morphology. Normal central canal and intervertebral neuroforamina. C4-5: Bridging osteophytes at the endplates. Normal disc height with a possible left paramedian disc protrusion. Posterior spurring and protruding to the central canal. Uncovertebral spurring narrowing the left intervertebral neural foramen. C5-6: Spurring at the endplates. Normal disc height and morphology. Posterior spurring protruding into the central canal. Uncovertebral spurring narrowing the intervertebral neuroforamina, left more than right. C6-7: Spurring of the endplates. Normal disc height and morphology. Posterior spurring protruding into the central canal. Uncovertebral spurring narrowing the intervertebral neuroforamina, left more than right. C7-T1: Normal endplates. Normal disc height and morphology. Normal central canal. Facet hypertrophy slightly narrowing the left intervertebral neural foramen. Normal visualized soft tissue structures. CT/Spine Cervical without Contras IMPRESSION: Degenerative changes and discogenic disease of the cervical spine. Electronically Signed: Terrence Salazar DO at 21:24 [facility] Reading Location ID and State: [facility] / [place] Tel [phone], Service support ,
--- NOTE | 2024-07-25 20:35 | CT_ITS ---
STUDY: CT BRAIN WITHOUT CONTRAST REASON FOR EXAM: Female, 53 years old. Injury/Pain RADIATION DOSAGE (If Supplied By Facility): CTDIvol = ( 44.99 ) mGy, DLP = ( 846.73 ) mGycm TECHNIQUE: Transaxial CT imaging of the brain was performed without administration of intravenous contrast material. Individualized dose optimization techniques were used for this CT. COMPARISON: No relevant priors. FINDINGS: Normal soft tissue structures. Normal calvarium. Normal size ventricles and extra-axial spaces for the patient''s age. Normal white matter tracts of the cerebral hemispheres. Normal basal ganglia and thalami. Normal brainstem. Normal cerebellum. There is no intracranial hemorrhage. There are no findings of an acute ischemic infarction. Normal visualized paranasal sinuses. CT/Brain/Head without Contrast IMPRESSION: Normal unenhanced CT scan of the brain. Electronically Signed: Terrence Salazar DO at 21:16 EST ,
--- NOTE | 2024-07-25 20:40 | RAD_ITS ---
INDICATION: Injury/Pain EXAMINATION/TECHNIQUE: X-RAY - XR Spine Thoracic 2Views COMPARISON: FINDINGS: VERTEBRAE: Preserved vertebral body height. Degenerative spurring of the lower thoracic vertebral endplates. No fracture. No spondylolisthesis. Preservation of the normal thoracic kyphosis. No significant facet arthropathy. DISCS: Disc spaces are maintained. INCLUDED CHEST/ABDOMEN: No acute abnormalities. RAD/Thoracic Spine 3 Views IMPRESSION: Degenerative thoracic vertebral changes. Electronically Signed: Terrence Salazar DO at 21:44 EST ,
[2024-07-25 22:05] VITALS: BP 122/70; PULSE 85; RESP 17; TEMP 36.3; O2SAT 97
== END 2024-07-25 22:06 | disposition home or self-care (01) ==
PROVIDERS: Emergency Provider Emergency Medicine; PCP Internal Medicine; Visit Provider Emergency Medicine
DX: S16.1XXA Strain of muscle, fascia and tendon at neck level, initial encounter (principal); F29 Unspecified psychosis not due to a substance or known physiological condition; J44.9 Chronic obstructive pulmonary disease, unspecified; E11.51 Type 2 diabetes mellitus with diabetic peripheral angiopathy without gangrene; S29.012A Strain of muscle and tendon of back wall of thorax, initial encounter; V89.2XXA Person injured in unspecified motor-vehicle accident, traffic, initial encounter; I10 Essential (primary) hypertension; F17.210 Nicotine dependence, cigarettes, uncomplicated; J30.9 Allergic rhinitis, unspecified; E66.9 Obesity, unspecified; E78.1 Pure hyperglyceridemia; G47.33 Obstructive sleep apnea (adult) (pediatric); Z88.0 Allergy status to penicillin; Z87.19 Personal history of other diseases of the digestive system; Z90.49 Acquired absence of other specified parts of digestive tract; Z79.85 Long-term (current) use of injectable non-insulin antidiabetic drugs; Z79.899 Other long term (current) drug therapy
CPT/HCPCS: 70450; 72072; 72125; 96372; 99283

== ENCOUNTER → 2024-08-01 | Outpatient (CLI) | payer MEDICAID, SELFPAY ==
[2024-08-01 12:22] LABS: Absolute Lymphocyte Count 2.24 X10^3/uL (0.83-4.51); Absolute Neutrophil Count 5.2 X10^3/uL (2.0-7.7); Basophil# 0.05 X10^3/uL; Basophil% 0.6 % (0-1); Eosinophil# 0.13 X10^3/uL; Eosinophils% 1.6 % (0-5); Hematocrit 42.4 % (37-47); Hemoglobin 13.9 g/dL (12.0-15.0); Lymphocyte # 2.24 X10^3/ul (0.83-4.51); Mean Corp Hgb Conc 32.8 g/dL (32-36); Mean Corpuscular Hgb 28.5 pg (27.0-32.0); Mean Corpuscular Volume 86.9 fL (81-99); Mean Platelet Vol. 11.4 fl (6.2-12.0); Monocyte# 0.67 X10^3/uL; Monocyte% 8.1 % (0-10); NRBC Flagged by Analyzer 0 % (0-5); Neutrophil # 5.18 X10^3/uL (2.7-7.7); Neutrophil % 62.2 % (47-70); Platelet Count 253 K/mm3 (150-450); RBC Distribution Width CV 14.6 % (11.6-14.6); RBC Distribution Width SD 46.2 fl (35.1-43.9); Red Blood Count 4.88 M/mm3 (4.2-5.4); White Blood Count 8.3 K/mm3 (4.4-11.0)
[2024-08-01 13:27] LABS: AST(SGOT) 10 U/L (15-37); Alanine Aminotransfer ALT/SGPT 18 U/L (13-56); Albumin, Serum 3.3 g/dL (3.2-5.0); Alkaline Phosphatase 76 U/L (45-117); Anion Gap 8 (5-15); BUN 5 mg/dL (7-18); BUN/Creat Ratio 7.2 RATIO (10-20); Calcium,Total 8.9 mg/dL (8.5-10.1); Chloride 107 mmol/L (98-107); Cholesterol 230 mg/dL (200); Creatinine, Serum 0.69 mg/dL (0.55-1.02); EST Glomerular Filtration Rate 95 mL/min (>60); Est Glom Filt Rate - Afr Amer 115 mL/min (>60); Globulin 3.2 g/dL (2.2-4.2); Glucose 112 mg/dL (74-106); High Density Lipoprotein 30 mg/dL; Potassium 3.5 mmol/L (3.5-5.1); Protein, Total 6.5 g/dL (6.4-8.2); Sodium Level 142 mmol/L (136-145); Triglycerides 197 mg/dL; Very Low Density Lipoprotein 39 mg/dL (5-40)
== END | disposition home or self-care (01) ==
LOC: BIMLAB 10:38
PROVIDERS: PCP Internal Medicine; Referring Provider Internal Medicine; Visit Provider Internal Medicine
DX: E11.9 Type 2 diabetes mellitus without complications (principal); I10 Essential (primary) hypertension
CPT/HCPCS: 36415; 80053; 80061; 85025

== ENCOUNTER 2024-10-14 17:58 | Emergency (ER) | payer MEDICAID, SELFPAY ==
[2024-10-14 17:59] VITALS: BP 164/87; PULSE 90; RESP 18; TEMP 36.6; O2SAT 96; BMI 33.4
[2024-10-14 18:23] VITALS: RESP 18; O2SAT 93
--- NOTE | 2024-10-14 18:25 | RAD_ITS ---
INDICATION: COUGH EXAMINATION/TECHNIQUE: X-RAY - XR Chest 1 View COMPARISON: 08/25/2023 FINDINGS: LINES/DEVICES: None. LUNGS: No consolidation, edema or effusion. No pneumothorax. Stable nodular density in the periphery of the right midlung field. MEDIASTINUM AND CARDIOVASCULAR STRUCTURES: Cardiac silhouette not enlarged. Central airways and mediastinal contour are unremarkable. BONES AND SOFT TISSUES: No acute changes. RAD/Chest 1 View (Portable) IMPRESSION: No radiographic evidence of acute cardiopulmonary disease. Electronically Signed: Arnulfo Franco MD at 18:54 EST ,
[2024-10-14 19:07] VITALS: BP 129/71; PULSE 83
--- NOTE | 2024-10-14 19:26 | EX.ED.VIS.UR ---
HPI HPI - URI History of Present Illness Chief Complaint: Cough Informant: patient Narrative Narrative: Patient is a 53-year-old female with history of COPD, anxiety, type 2 diabetes mellitus and hypertension presenting for 3 days worsening ear pain, continued cough and thoracic back pain. Patient states that she had COVID in August and since then has been having the symptoms of cough and back pain that are not resolving. She did have a chest x-ray after her COVID which showed a pleural effusion. She notes that since having COVID in August she is continue to have a cough that is really productive of yellow sputum. She gets pain between her shoulder blades. She has developed ear pain over the past 3 days and is worried she could have an ear infection. She denies any urinary symptoms or fevers. Denies any nausea or vomiting. Denies any Siska abdominal pain. Denies any chest pain. She does sometimes she does get more short of breath at night. 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 She states that she spoke to her earlier this week and was told on Thursday that if her symptoms worsened there is nothing more they could do for her and she needs to go to the emergency room. Patient states she is alternating NyQuil and DayQuil for her symptoms with no relief. She does have albuterol at home but states she is almost out of her medication. Patient states she does use trilogy. No other complaints or concerns at this time. [facility] ED Constitutional Constitutional ED: Denies chills or fever(s) Cardiovascular Cardiovascular: Denies chest pain Respiratory/Chest Respiratory/Chest: Reports cough, dyspnea and sputum Gastrointestinal Gastrointestinal: Denies abdominal pain, nausea or vomiting Musculoskeletal Musculoskeletal: Reports back pain; Denies arthralgias or myalgias Integumentary Denies rash Neurologic Neurologic: Denies weakness Psychiatric Psychiatric: Reports anxiety Hematologic/Lymphatic Hematologic/Lymphatic: Denies easy bleeding or easy bruising [facility] Medical History Goiter Constipation Hepatic lesion Dependence on nocturnal oxygen therapy Asthma History of pancreatitis Obesity Essential (primary) hypertension Murmur Onychomycosis Type II diabetes mellitus with peripheral circulatory disorder COPD (chronic obstructive pulmonary disease) Allergic rhinitis History of suicidal ideation Fatty liver Hypertriglyceridemia Obstructive sleep apnea Premature ventricular contractions Menopause Bilateral chronic serous otitis media Environmental allergies Chronic maxillary sinusitis Paresthesia of both feet Degenerative disc disease Bilateral tinnitus Nodule of right lung Psychotic disorder Bilateral hearing loss Restless leg syndrome Liver cyst Anxiety and depression PTSD (post-traumatic stress disorder) Low HDL (under 40) Congenital pulmonary arteriovenous malformation Medical History no medical history Home Medications ?Medication ?Instructions ?Recorded ?Last Taken ?Type nitroglycerin 0.4 mg sublingual 0.4 mg sublingual Q5-15M chest 07/20/19 Unknown Rx tablet pain #25 TABLETS ipratropium 0.5 mg-albuterol 3 mg 3 ml inhalation Q8H PRN shortness 01/07/24 Unknown Rx (2.5 mg base)/3 mL nebulization of breath or wheezing #90 mL soln fluticasone propionate 50 1 spray intranasal DAILY 03/31/24 Unknown History mcg/actuation nasal spray,suspension (Children's Flonase Allergy Relief) paliperidone 3 mg tablet,extended 3 mg PO QHS 05/31/24 Unknown History release 24 hr Dexcom G7 Sensor (blood-glucose #3 ea 07/29/24 Unknown Rx sensor) cyclobenzaprine 10 mg tablet 10 mg PO BID PRN muscle spasm #20 08/01/24 Unknown Rx tabs paliperidone palmitate 234 mg/1.5 234 mg IM Q30D 08/01/24 Unknown History mL intramuscular syringe (Invega Sustenna) pantoprazole 40 mg tablet,delayed 40 mg PO DAILY #90 tabs 08/01/24 Unknown Rx release insulin glargine 100 unit/mL (3 10 unit (0.1 mL) subcut QPM #15 mL 09/16/24 Unknown Rx mL) subcutaneous pen (Lantus Solostar U-100 Insulin) pen needle, diabetic 32 gauge x #100 ea 09/16/24 Unknown Rx /32 (BD Ultra-Fine Martine Pen Needle) fluticasone fur. 200 mcg-umeclid 1 inh inhalation Q24H #60 ea 10/03/24 Unknown Rx 62.5 mcg-vilant 25 mcg inhalat.powder (Trelegy Ellipta) insulin aspart U-100 100 unit/mL 5 unit (0.05 mL) subcut TID #15 mL 10/03/24 Unknown Rx (3 mL) subcutaneous pen (Novolog FlexPen U-100 Insulin aspart) albuterol sulfate 2.5 mg/3 mL 2.5 mg (3 mL) continuous 10/14/24 Unknown Rx (0.083 %) solution for nebulization nebulization Q4H sob and wheezing #90 mL doxycycline monohydrate 100 mg 100 mg PO BID #14 tabs 10/14/24 Unknown Rx tablet prednisone 20 mg tablet 40 mg (2 x 20 mg) PO DAILY #8 tabs 10/14/24 Unknown Rx Allergy/AdvReac Type Severity Reaction Status Date / Time sucralfate Allergy Severe throat Verified 10/14/24 17:59 swelling divalproex sodium (From Allergy Intermediate Rash Verified 10/14/24 17:59 Depakote) Penicillins Allergy Intermediate Rash Verified 10/14/24 17:59 amoxicillin trihydrate (From Allergy Unknown Verified 10/14/24 17:59 Augmentin) potassium clavulanate (From Allergy Unknown Verified 10/14/24 17:59 Augmentin) ranitidine HCl (From Zantac) Allergy Unknown Verified 10/14/24 17:59 codeine AdvReac Intermediate Nausea and Verified 10/14/24 17:59 vomiting hydrocodone (From Vicodin) AdvReac Intermediate Nausea and Verified 10/14/24 17:59 vomiting isosorbide AdvReac Intermediate headache Verified 10/14/24 17:59 linagliptin (From Tradjenta) AdvReac Intermediate Vomiting Verified 10/14/24 17:59 liraglutide (From Victoza) AdvReac Intermediate Burning Verified 10/14/24 17:59 Abdomen Family History Mother COPD (chronic obstructive pulmonary disease) CAD (coronary artery disease) Diabetes Hypertension Cancer skin Sarcoidosis Father CAD (coronary artery disease) Hypertension CVA (cerebral vascular accident) Family History no significant family his Surgical History History of cholecystectomy (12/27/12) History of appendectomy (2002) History of hysterectomy (2000) History of left heart catheterization (07/25/19) Surgical History no surgical history Social History household members: spouse and other details: grandson current occupational status: disabled 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 Smoking Status: Heavy Smoker (>10/day) Tobacco: How many years used: 35 Electronic Cigarette Use: not used alcohol intake: never substance use type: does not use caffeine: No what type of physical activity do you participate in: none do you feel safe at home: Yes EXAM Physical Exam Const Vital Signs: 10/14/24 17:59 10/14/24 18:23 10/14/24 18:54 Temperature 97.8 F Temperature Source Oral Pulse Rate 90 Respiratory Rate 18 18 Respiratory Effort Normal Blood Pressure 164/87 H Blood Pressure Mean 112 Pulse Ox 96 93 Oxygen Delivery Method Room Air Room Air 10/14/24 19:07 10/14/24 19:34 10/14/24 21:00 Temperature Temperature Source Pulse Rate 83 85 85 Respiratory Rate 16 Respiratory Effort Blood Pressure 129/71 H 138/75 H Blood Pressure Mean 90 96 Pulse Ox 97 Oxygen Delivery Method Room Air Room Air 10/14/24 21:57 Temperature 97.8 F Temperature Source Pulse Rate 85 Respiratory Rate 16 Respiratory Effort Blood Pressure 138/75 H Blood Pressure Mean 96 Pulse Ox 97 Oxygen Delivery Method Positive well nourished and well developed General Appearance ED: well developed and NAD HEENT Reports moist mucous membranes HEENT Narrative: Normal bilateral tympanic membranes. Normal ear canals. Normal external ears. normocephalic and atraumatic Eyes PERRL and EOMs intact bilaterally Neck supple and no JVD Resp normal respiratory effort Resp Narrative: Coarse breath sounds throughout with scattered and expiratory wheezing present Cardio Rate: regular rate Rhythm: regular rhythm GI non-tender and non-distended Back/Spine Back/Spine Narrative: No paraspinal tenderness. No reproducible tenderness with palpation. Thoracic Spine / Upper Back: Negative for thoracic spinal tenderness Extremity normal to inspection Extremity Narrative: No edema appreciated General Extremety ED: Negative for tenderness Neuro oriented x3 Sensorium / Orientation: alert Motor Exam: Negative for general weakness Psych mental status grossly normal Skin Lesions: no lesions Rashes: no rashes MDM MDM MDM Narrative Medical decision making narrative: Patient is evaluated for shortness of breath that has been going on since she had COVID 6 weeks ago and 3 days of ear pain. Patient appears nontoxic no acute distress. Patient is on room air and does not wear supplemental oxygen. Patient does not have an ear infection on exam. Protocol single view portable chest x-ray did not show an acute process. Lateral chest x-ray added on to ensure not missing any retrocardiac infiltrate. This is negative. This was reviewed by myself as well as radiology. She is very coarse and rhonchorous breath sounds with some wheezing. Is given DuoNeb and also given a dose of Motrin for her pain. Her symptoms significantly improved with these interventions. On repeat evaluation she does have improvement of her breath sounds as well. She is ambulated without any hypoxia in the emergency room. Suspect she is having COPD exacerbation/flare. COVID flu and RSV are negative. She does not have any chest pain I do not think this is cardiac in nature. Patient is not tachycardic nor hypoxic. Will discharge with a burst of steroids and also cover with course of doxycycline given her underlying lung disease. Is instructed to start taking Zyrtec again. Is given a refill of albuterol nebulized solution as well as albuterol inhaler in the emergency room as she states she is running out. Given return precautions and her to follow-up with her reproduction production manager. Discharged home in stable condition. Radiography Diagnostic Testing: Clinical Impression(s) from Imaging Studies Chest X-Ray 10/14/24 18:25 IMPRESSION: No radiographic evidence of acute cardiopulmonary disease. Electronically Signed: Arnulfo Franco MD at 18:54 EST , Chest X-Ray 10/14/24 19:50 IMPRESSION: No radiographic evidence of acute cardiopulmonary disease. Electronically Signed: Arnulfo Franco MD at 20:41 EST , Discharge Plan Triage Chief Complaint: Cough ED Provider: Yecenia Anderson Dx/Rx/DC Orders Clinical Impression: COPD with acute exacerbation, Back pain, thoracic Instructions: ED Back Pain (Acute or Chronic), ED COPD Flare Prescriptions: New doxycycline monohydrate 100 mg tablet 100 mg PO BID Qty: 14 0RF prednisone 20 mg tablet 40 mg PO DAILY Qty: 8 0RF Continued albuterol sulfate 2.5 mg /3 mL (0.083 %) solution for nebulization 2.5 mg continuous nebulization Q4H Qty: 90 0RF Patient Comments: USE 3 ML IN NEBULIZER EVERY 4 HOURS NEEDED FOR WHEEZING AND FOR SHORTNESS OF BREATH No Action nitroglycerin 0.4 mg tablet, sublingual 0.4 mg sublingual Q5-15M Qty: 25 6RF fluticasone propionate [Children's Flonase Allergy Rlf] 50 mcg/actuation spray,suspension 1 spray intranasal DAILY Rx Instructions: administer into each nostril paliperidone 3 mg tablet extended release 24hr 3 mg PO QHS ipratropium-albuterol 0.5 mg-3 mg(2.5 mg base)/3 mL solution for nebulization 3 ml inhalation Q8H PRN (Reason: shortness of breath or wheezing) Qty: 90 0RF Invega Sustenna 234 mg/1.5 mL syringe 234 mg IM Q30D pantoprazole 40 mg tablet,delayed release (DR/EC) 40 mg PO DAILY Qty: 90 1RF cyclobenzaprine 10 mg tablet 10 mg PO BID PRN (Reason: muscle spasm) Qty: 20 0RF (DME) Dexcom G7 Sensor Device See Rx Instructions .Route Qty: 3 6RF Rx Instructions: daily insulin glargine [Lantus Solostar U-100 Insulin] 100 unit/mL (3 mL) insulin pen 10 unit subcut QPM Qty: 15 3RF (DME) pen needle, diabetic [BD Ultra-Fine Martine Pen Needle] 32 gauge x 5/32 needle See Rx Instructions .ROUTE .MEDSUPPLY Qty: 100 3RF Rx Instructions: bid Trelegy Ellipta 200-62.5-25 mcg blister with device 1 inh inhalation Q24H Qty: 60 5RF insulin aspart U-100 [Novolog FlexPen U-100 Insulin] 100 unit/mL (3 mL) insulin pen 5 unit subcut TID Qty: 15 3RF Primary Care Provider: Lissette Hernandez Referrals: Lissette Hernandez MD [Primary Care Provider] - Activity Restrictions/Additional Instructions: Please resume taking daily Zyrtec. You can always cut the dose in half if a full Tablet makes you too groggy. Please continue to follow-up with your primary care doctor as well as your lung doctors. Take [id number] ibuprofen for pain. You do not have an ear infection today. Print Language: Ukrainian Disposition Disposition: Home, Self Care Discharge Date/Time: 10/14/24 22:03
[2024-10-14] MEDS: Ipratropium/Albuterol Sulfate 3 ML AMPUL.NEB INHALATION (19:33)
[2024-10-14 19:34] VITALS: PULSE 85; RESP 16
--- NOTE | 2024-10-14 19:50 | RAD_ITS ---
INDICATION: cough -- lateral view EXAMINATION/TECHNIQUE: X-RAY - XR Chest 1 View COMPARISON: PA chest x-ray earlier same date FINDINGS: Single lateral view shows no consolidation or pleural effusion. Osseous structures unremarkable. RAD/Chest 1 View IMPRESSION: No radiographic evidence of acute cardiopulmonary disease. Electronically Signed: Arnulfo Franco MD at 20:41 EST ,
[2024-10-14 21:00] VITALS: BP 138/75; PULSE 85; O2SAT 97
[2024-10-14] MEDS: Ibuprofen 600 MG Tablet PO (21:28)
[2024-10-14 21:57] VITALS: BP 138/75; PULSE 85; RESP 16; TEMP 36.6; O2SAT 97
[2024-10-14] MEDS: predniSONE 20 MG Tablet 60 MG PO (22:00)
[2024-10-14] MEDS: Albuterol Sulfate 8 gm Inhaler (60 puffs) 2 PUFF INHALATION (22:01)
== END 2024-10-14 22:03 | disposition home or self-care (01) ==
PROVIDERS: Emergency Provider Emergency Medicine; PCP Internal Medicine; Referring Provider Emergency Medicine; Visit Provider Emergency Medicine
DX: J44.1 Chronic obstructive pulmonary disease with (acute) exacerbation (principal); E11.9 Type 2 diabetes mellitus without complications; M54.6 Pain in thoracic spine; F17.200 Nicotine dependence, unspecified, uncomplicated; G47.33 Obstructive sleep apnea (adult) (pediatric); Z86.16 Personal history of COVID-19
CPT/HCPCS: 71045; 87631; 94640; 94760; 99282

== ENCOUNTER 2025-04-12 16:56 | Emergency (ER) | payer MEDICAID, SELFPAY ==
[2025-04-12] VITALS (14 sets, daily range): BP systolic 118–157; BP diastolic 61–84; PULSE 73–81; RESP 9–18; TEMP 36.9–37.1; O2SAT 96–100; BMI 34.0
--- NOTE | 2025-04-12 17:15 | EKG12_ITS ---
Test Reason : CHEST PAIN Blood Pressure : */* mmHG Vent. Rate : 78 BPM Atrial Rate : 78 BPM P-R Int : 124 ms QRS Dur : 86 ms QT Int : 414 ms P-R-T Axes : 75 78 59 degrees QTcB Int : 471 ms Normal sinus rhythm Normal ECG Confirmed by JEFFREY WALTERS, BELLA ([id number]), technical writer and editor CRISTINE CLARK ([id number]) on 04/14/2025 1:13:05 PM Referred By: SCOTT/RUDI Confirmed By: BELLA MURPHY MD
--- NOTE | 2025-04-12 17:15 | ED.VIS.CHEST ---
HPI History of Present Illness Chief Complaint: Chest Pain Narrative Narrative: 54-year-old female past medical history of COPD/asthma on 3 L of oxygen's at all times presents with her ex- and her cousin because of chest pain that she experienced approximately 30 minutes ago. She states that she was outside with them talking on the porch when she had sudden sharp stabbing pain in her chest. It radiated up towards her jaw and down her left arm. She denies any nausea or vomiting. No sweating or increased shortness of breath. They gave her 2 nitroglycerin and aspirin called EMS. She states her pain lasted approximately 15 minutes. She is currently pain-free. Of note, she states that she had a stress test last week in [place], a dobutamine stress test, not treadmill, and it was positive. 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 [facility] Medical History Goiter Constipation Hepatic lesion Dependence on nocturnal oxygen therapy Asthma History of pancreatitis Obesity Essential (primary) hypertension Murmur Onychomycosis Type II diabetes mellitus with peripheral circulatory disorder COPD (chronic obstructive pulmonary disease) Allergic rhinitis History of suicidal ideation Fatty liver Hypertriglyceridemia Obstructive sleep apnea Premature ventricular contractions Menopause Bilateral chronic serous otitis media Environmental allergies Chronic maxillary sinusitis Paresthesia of both feet Degenerative disc disease Bilateral tinnitus Nodule of right lung Psychotic disorder Bilateral hearing loss Restless leg syndrome Liver cyst Anxiety and depression PTSD (post-traumatic stress disorder) Low HDL (under 40) Congenital pulmonary arteriovenous malformation Home Medications Medication Instructions Recorded Last Taken Type paliperidone 3 mg tablet,extended 3 mg PO QHS 05/31/24 04/11/25 History release 24 hr paliperidone palmitate 234 mg/1.5 234 mg IM Q30D 08/01/24 Unknown History mL intramuscular syringe (Invega Sustenna) fluticasone fur. 200 mcg-umeclid 1 inh inhalation Q24H #60 ea 10/03/24 04/12/25 Rx 62.5 mcg-vilant 25 mcg inhalat.powder (Trelegy Ellipta) Dexcom G7 Sensor (blood-glucose #3 ea 10/18/24 Unknown Rx sensor) pen needle, diabetic 32 gauge x #150 ea 10/18/24 Unknown Rx " (BD Ultra-Fine Martine Pen Needle) albuterol sulfate 90 mcg/actuation 2 puff inhalation Q6H PRN Sob &/Or 10/25/24 04/12/25 Rx aerosol inhaler (Ventolin HFA) Wheezing #18 grams amlodipine 5 mg tablet 5 mg PO DAILY 04/12/25 04/12/25 History duloxetine 40 mg capsule,delayed 40 mg PO BID 04/12/25 04/12/25 History release nitroglycerin 0.4 mg sublingual 0.4 mg sublingual Q5M PRN chest 04/12/25 Unknown Rx tablet pain #15 tabs omeprazole 40 mg capsule,delayed 40 mg PO DAILY 04/12/25 04/12/25 History release propranolol 10 mg tablet 10 mg PO BID 04/12/25 04/12/25 History tirzepatide 5 mg/0.5 mL 5 mg subcut QWEEK 04/12/25 04/06/25 History subcutaneous pen injector (Mc) trazodone 50 mg tablet 50 mg PO QHS PRN 04/12/25 04/11/25 History Allergy/AdvReac Type Severity Reaction Status Date / Time sucralfate Allergy Severe throat Verified 04/12/25 16:57 swelling divalproex sodium (From Allergy Intermediate Rash Verified 04/12/25 16:57 Depakote) Penicillins Allergy Intermediate Rash Verified 04/12/25 16:57 amoxicillin trihydrate (From Allergy Unknown Verified 04/12/25 16:57 Augmentin) potassium clavulanate (From Allergy Unknown Verified 04/12/25 16:57 Augmentin) ranitidine HCl (From Zantac) Allergy Unknown Verified 04/12/25 16:57 codeine AdvReac Intermediate Nausea and Verified 04/12/25 16:57 vomiting hydrocodone (From Vicodin) AdvReac Intermediate Nausea and Verified 04/12/25 16:57 vomiting isosorbide AdvReac Intermediate headache Verified 04/12/25 16:57 linagliptin (From Tradjenta) AdvReac Intermediate Vomiting Verified 04/12/25 16:57 liraglutide (From Victoza) AdvReac Intermediate Burning Verified 04/12/25 16:57 Abdomen Family History Mother COPD (chronic obstructive pulmonary disease) CAD (coronary artery disease) Diabetes Hypertension Cancer skin Sarcoidosis Father CAD (coronary artery disease) Hypertension CVA (cerebral vascular accident) Surgical History History of cholecystectomy (12/27/12) History of appendectomy (2002) History of hysterectomy (2000) History of left heart catheterization (07/25/19) Social History household members: spouse and other details: grandson current occupational status: disabled 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 Described as sharp and stabbing. No recent fevers or chills, no cough above her baseline COPD/asthma. No leg swelling. Quit smoking 1 week ago. EXAM Physical Exam Narrative Exam Narrative: Afebrile. Vital signs noted. Nontoxic-appearing. Cardiovascular examination reveals regular rate and rhythm. Lungs are clear to auscultation bilaterally. The abdomen is soft, nontender, with positive bowel sounds. No guarding or rebound. Neurological examination nonfocal, nonlateralizing. Const Vital Signs: 04/12/25 16:58 04/12/25 17:03 04/12/25 17:35 Temperature 98.7 F Temperature Source Oral Pulse Rate 77 Respiratory Rate 18 Respiratory Effort Normal Blood Pressure 118/68 Blood Pressure Mean 84 Pulse Ox 99 Oxygen Delivery Method Room Air Room Air 04/12/25 17:58 04/12/25 18:00 04/12/25 18:00 Temperature Temperature Source Pulse Rate 77 78 Respiratory Rate 11 L 16 Respiratory Effort Blood Pressure 118/70 118/70 Blood Pressure Mean 86 86 Pulse Ox 99 98 Oxygen Delivery Method Room Air 04/12/25 18:20 04/12/25 18:24 04/12/25 18:24 Temperature Temperature Source Pulse Rate 81 77 76 Respiratory Rate 10 L Respiratory Effort Blood Pressure 131/71 H 131/71 H Blood Pressure Mean 91 88 Pulse Ox 99 99 Oxygen Delivery Method Room Air 04/12/25 18:30 04/12/25 18:45 04/12/25 19:00 Temperature Temperature Source Pulse Rate 77 77 78 Respiratory Rate 15 9 L 13 Respiratory Effort Blood Pressure 124/68 H 131/65 H 129/61 H Blood Pressure Mean 86 83 80 Pulse Ox 99 99 99 Oxygen Delivery Method 04/12/25 19:15 04/12/25 19:30 04/12/25 19:45 Temperature Temperature Source Pulse Rate 77 77 76 Respiratory Rate 17 12 12 Respiratory Effort Blood Pressure 131/77 H 133/76 H 134/71 H Blood Pressure Mean 91 94 88 Pulse Ox 99 98 99 Oxygen Delivery Method 04/12/25 20:00 04/12/25 20:15 Temperature Temperature Source Pulse Rate 75 73 Respiratory Rate 13 15 Respiratory Effort Blood Pressure 136/68 H 122/68 H Blood Pressure Mean 88 84 Pulse Ox 100 98 Oxygen Delivery Method MDM MDM MDM Narrative Medical decision making narrative: The differential diagnosis includes but not limited to ACS versus pneumonia versus pneumothorax versus atypical chest pain. She has normal blood pressure currently. She is pain-free. Chest pain workup was pursued. She has already received nitroglycerin and aspirin. EKG was obtained and interpreted by myself independently as normal sinus rhythm at 78 bpm without ectopy or acute ST changes. No STEMI, no significant change from December 03, 2023 EKG. Laboratory work shows normal white count 9.0 with hemoglobin normal at 12.4, hematocrit 37.0, platelet count normal at 235. BMP shows glucose of 110 with normal BUN and creatinine low at 0.61. Normal anion gap of 12. Normal sodium and normal potassium. Initial high-sensitivity troponin is 22 which may be her baseline given her reported coronary artery disease and positive stress test. Her repeat a 2-hour is 19. As these are flat, and she is currently pain-free, I do feel that she can follow-up with cardiology in [place] tomorrow and give the office a call. She states her nitroglycerin is and she took 2 of them today so I wrote her a new prescription for 0.4 mg 15 tablets to take every 5 minutes up to 3 per episode. She was instructed to return with increasing chest pain, new or worsening symptoms. Chest x-ray obtained shows no consolidation. She does have blunting of the left costophrenic angle which may be more atelectasis/COPD versus small effusion. Regardless, at this point in time, she feels well and would like to go home. Once again, I stressed the importance of follow-up with cardiology. They are to call tomorrow. Return instructions to the emergency department were reviewed. Disposition is discharged home in stable condition. History & Record Review Discussion w/independent historian: Patient and Family Additional record(s) reviewed:: Prior ED visit Lab Data Attestation: I reviewed the patient's lab results. Labs: Laboratory Results - last 24 hr 04/12/25 04/12/25 04/12/25 16:20 17:20 18:30 WBC 9.0 RBC 4.26 Hgb 12.4 Hct 37.0 MCV 86.9 MCH 29.1 MCHC 33.5 RDW Std Deviation 42.2 RDW Coeff of Jossy 13.5 Plt Count 235 MPV 11.0 Immature Gran % (Auto) 0.400 Neut % (Auto) 59.3 Lymph % (Auto) 29.6 [place] % (Auto) 8.3 Eos % (Auto) 1.8 Baso % (Auto) 0.6 Absolute Neuts (auto) 5.4 Absolute Lymphs (auto) 2.67 Nucleated RBC % 0 Sodium 140 Potassium 3.7 Chloride 101 Carbon Dioxide 27.2 Anion Gap 12 BUN 6 Creatinine 0.61 L Estim Creat Clear Calc 111.59 Est GFR (MDRD) Non-Af 107 BUN/Creatinine Ratio 10.0 Glucose 110 H Calcium 9.1 Troponin T High Sens 22 H Troponin T Hi Sens 2 Hr 19 H Radiography Chest X-Ray - ED: 1 View, Read by ED Physician, Read by Radiologist and Left Effusion (Versus atelectasis) Diagnostic Testing: Clinical Impression(s) from Imaging Studies Chest X-Ray 04/12/25 17:35 IMPRESSION: Mild cardiomegaly and vascular congestion. Blunting of the left costophrenic angle may represent a small left pleural effusion and/or atelectasis. Unchanged 8 mm nodular focus in the lateral right mid lung zone. Suggest follow-up CT. Reading Location: [facility] Discharge Plan Triage Chief Complaint: Chest Pain ED Provider: Juan Carlos Wiseman Dx/Rx/DC Orders Clinical Impression: Chest pain, COPD (chronic obstructive pulmonary disease), Elevated troponin Instructions: ED Chest Pain, Uncertain Cause Prescriptions: New nitroglycerin 0.4 mg tablet, sublingual 0.4 mg sublingual Q5M PRN (Reason: chest pain) Qty: 15 0RF Rx Instructions: do not exceed 3 doses per episode No Action paliperidone 3 mg tablet extended release 24hr 3 mg PO QHS (DME) Dexcom G7 Sensor Device See Rx Instructions .Route Qty: 3 6RF Rx Instructions: daily (DME) pen needle, diabetic [BD Ultra-Fine Martine Pen Needle] 32 gauge x 5/32" needle See Rx Instructions .ROUTE .MEDSUPPLY Qty: 150 6RF Rx Instructions: 5 times daily Invega Sustenna 234 mg/1.5 mL syringe 234 mg IM Q30D trazodone 50 mg tablet 50 mg PO QHS PRN amlodipine 5 mg tablet 5 mg PO DAILY omeprazole 40 mg capsule,delayed release(DR/EC) 40 mg PO DAILY propranolol 10 mg tablet 10 mg PO BID duloxetine 40 mg capsule,delayed release(DR/EC) 40 mg PO BID Mounjaro 5 mg/0.5 mL pen injector 5 mg subcut QWEEK Trelegy Ellipta 200-62.5-25 mcg blister with device 1 inh inhalation Q24H Qty: 60 5RF albuterol sulfate [Ventolin HFA] 90 mcg/actuation HFA aerosol inhaler 2 puff INHALATION Q6H PRN (Reason: Sob &/Or Wheezing) Qty: 18 0RF Primary Care Provider: Mis Cooley Referrals: Mis Cooley, [facility] [Primary Care Provider] - Activity Restrictions/Additional Instructions: Have your cardiac catheterization performed on Thursday of next week as scheduled. Nitroglycerin as needed for chest pain. Return with increased pain, new or worsening symptoms. Call your stripper machine operator in [place] tomorrow and tell them that you had an episode of chest pain. Print Language: [place] Disposition Disposition: Home, Self Care
--- NOTE | 2025-04-12 17:35 | RAD_ITS ---
PROCEDURE: CHEST 1 VIEW (PORTABLE) 04/12/2025 REASON FOR EXAM: CHEST PAIN TECHNIQUE: Frontal view of the chest. COMPARISON: 10/14/2024, 02/05/2024 FINDINGS: Lungs/Pleura: Blunting of the left costophrenic angle may represent mild left basilar atelectasis versus a small pleural effusion. No sizable pleural effusion on the right. No focal airspace consolidation. 8 mm nodular density within the lateral right mid lung zone, unchanged from prior exam. Heart/Mediastinum: Mildly enlarged cardiac silhouette. Mild vascular congestion. Bones/Soft tissues: Mild degenerative changes of the spine and bilateral AC joints. RAD/Chest 1 View (Portable) IMPRESSION: Mild cardiomegaly and vascular congestion. Blunting of the left costophrenic a ngle may represent a small left pleural effusion and/or atelectasis. Unchanged 8 mm nodular focus in the lateral right mid lung zone. Suggest follo w-up CT. Reading Location: [id number]
[2025-04-12 17:59] LABS: Hematocrit 37.0 % (37-47); Hemoglobin 12.4 g/dL (12.0-15.0); Immature Granulocytes Count 0.040 X10^3/uL (0.0-0.0); Mean Corp Hgb Conc 33.5 g/dL (32-36); Mean Corpuscular Volume 86.9 fL (81-99); Mean Platelet Vol. 11.0 fl (6.2-12.0); NRBC Flagged by Analyzer 0 % (0-5); Platelet Count 235 K/mm3 (150-450); RBC Distribution Width CV 13.5 % (11.6-14.6); RBC Distribution Width SD 42.2 fl (35.1-43.9); Red Blood Count 4.26 M/mm3 (4.2-5.4); White Blood Count 9.0 K/mm3 (4.4-11.0)
[2025-04-12 18:10] LABS: Anion Gap 12 (5-15); BUN 6 mg/dL (4-19); BUN/Creat Ratio 10.0 RATIO (10-20); Calcium,Total 9.1 mg/dL (7.6-11.0); Carbon Dioxide 27.2 mmol/L (21.0-32.0); Chloride 101 mmol/L (98-108); Estimated Creatinine Clearance 111.59 ml/min (50-250); Glucose 110 mg/dL (70-99); Potassium 3.7 mmol/L (3.3-5.1); Troponin T High Sensitivity 22 ng/L (<=14)
[2025-04-12 20:07] LABS: Troponin T High Sens 2 HR 19 ng/L (<=14)
== END 2025-04-12 21:27 | disposition home or self-care (01) ==
PROVIDERS: Emergency Provider Emergency Medicine; PCP Nurse Practitioner Primary Care; Visit Provider Emergency Medicine
DX: R07.89 Other chest pain (principal); J44.9 Chronic obstructive pulmonary disease, unspecified; E11.9 Type 2 diabetes mellitus without complications; R79.89 Other specified abnormal findings of blood chemistry; I10 Essential (primary) hypertension; F17.200 Nicotine dependence, unspecified, uncomplicated; Z99.81 Dependence on supplemental oxygen; Z79.899 Other long term (current) drug therapy; I25.10 Atherosclerotic heart disease of native coronary artery without angina pectoris
CPT/HCPCS: 71045; 80048; 84484; 85025; 93005; 99285

== ENCOUNTER 2025-09-08 18:29 | Emergency (ER) | payer MEDICAID, SELFPAY ==
[2025-09-08 18:30] VITALS: BP 148/98; PULSE 93; RESP 16; TEMP 36.9; O2SAT 99
[2025-09-08 19:01] VITALS: BMI 34.6
--- NOTE | 2025-09-08 19:25 | EX.ED.DYSGE1 ---
HPI History of Present Illness Chief Complaint: General Illness Informant: patient and spouse/S.O. Onset/Context/Timing Onset: Today Current Severity: Moderate Maximum Severity: Moderate Narrative Narrative: 54-year-old female history diabetes, PTSD and psychotic disorder. She is on Mounjaro she takes it once a week. States that she has chronic tremors I do not know the specific cause anything that might be from her medications. They are just worse today. She denies any recent illness. She denies fever. She denies nausea or vomiting. Said her blood sugars been running around 135. Prior similar symptoms: Yes Recent Illness/Hospitalization: No PFSH PFS Medical History Left shoulder pain Goiter Constipation Hepatic lesion Dependence on nocturnal oxygen therapy Asthma History of pancreatitis Obesity Essential (primary) hypertension Murmur Onychomycosis Type II diabetes mellitus with peripheral circulatory disorder COPD (chronic obstructive pulmonary disease) Allergic rhinitis History of suicidal ideation Fatty liver Hypertriglyceridemia Obstructive sleep apnea Premature ventricular contractions Menopause Bilateral chronic serous otitis media Environmental allergies Chronic maxillary sinusitis Paresthesia of both feet Degenerative disc disease Bilateral tinnitus Nodule of right lung Psychotic disorder Bilateral hearing loss Restless leg syndrome Liver cyst Anxiety and depression PTSD (post-traumatic stress disorder) Low HDL (under 40) Congenital pulmonary arteriovenous malformation Home Medications ?Medication ?Instructions ?Recorded ?Last Taken ?Type paliperidone 3 mg tablet,extended 3 mg PO QHS 05/31/24 04/11/25 History release 24 hr paliperidone palmitate 234 mg/1.5 234 mg IM Q30D 08/01/24 Unknown History mL intramuscular syringe (Invega Sustenna) fluticasone fur. 200 mcg-umeclid 1 inh inhalation Q24H #60 ea 10/03/24 04/12/25 Rx 62.5 mcg-vilant 25 mcg inhalat.powder (Trelegy Ellipta) Dexcom G7 Sensor (blood-glucose #3 ea 10/18/24 Unknown Rx sensor) pen needle, diabetic 32 gauge x #150 ea 10/18/24 Unknown Rx (BD Ultra-Fine Martine Pen Needle) albuterol sulfate 90 mcg/actuation 2 puff inhalation Q6H PRN Sob &/Or 10/25/24 04/12/25 Rx aerosol inhaler (Ventolin HFA) Wheezing #18 grams amlodipine 5 mg tablet 5 mg PO DAILY 04/12/25 04/12/25 History duloxetine 40 mg capsule,delayed 40 mg PO BID 04/12/25 04/12/25 History release nitroglycerin 0.4 mg sublingual 0.4 mg sublingual Q5M PRN chest 04/12/25 Unknown Rx tablet pain #15 tabs omeprazole 40 mg capsule,delayed 40 mg PO DAILY 04/12/25 04/12/25 History release propranolol 10 mg tablet 10 mg PO BID 04/12/25 04/12/25 History tirzepatide 5 mg/0.5 mL 5 mg subcut QWEEK 04/12/25 04/06/25 History subcutaneous pen injector (Mounjaro) trazodone 50 mg tablet 50 mg PO QHS PRN 04/12/25 04/11/25 History lorazepam 1 mg tablet (Ativan) 1 mg PO DAILY PRN anxiety 7 days 09/08/25 Unknown Rx #7 tabs Allergy/AdvReac Type Severity Reaction Status Date / Time sucralfate Allergy Severe throat Verified 09/08/25 18:35 swelling divalproex sodium (From Allergy Intermediate Rash Verified 09/08/25 18:35 Depakote) Penicillins Allergy Intermediate Rash Verified 09/08/25 18:35 amoxicillin trihydrate (From Allergy Unknown Verified 09/08/25 18:35 Augmentin) potassium clavulanate (From Allergy Unknown Verified 09/08/25 18:35 Augmentin) ranitidine HCl (From Zantac) Allergy Unknown Verified 09/08/25 18:35 codeine AdvReac Intermediate Nausea and Verified 09/08/25 18:35 vomiting hydrocodone (From Vicodin) AdvReac Intermediate Nausea and Verified 09/08/25 18:35 vomiting isosorbide AdvReac Intermediate headache Verified 09/08/25 18:35 linagliptin (From Tradjenta) AdvReac Intermediate Vomiting Verified 09/08/25 18:35 liraglutide (From Victoza) AdvReac Intermediate Burning Verified 09/08/25 18:35 Abdomen Family History Mother COPD (chronic obstructive pulmonary disease) CAD (coronary artery disease) Diabetes Hypertension Cancer skin Sarcoidosis Father CAD (coronary artery disease) Hypertension CVA (cerebral vascular accident) Surgical History History of cholecystectomy (12/27/12) History of appendectomy (2002) History of hysterectomy (2000) History of left heart catheterization (07/25/19) Social History household members: spouse and other details: grandson current occupational status: 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 Worsening tremors. Constitutional Constitutional ED: Denies chills or fever(s) Eyes Eyes: Denies blurry vision ENT ENT ED: Denies ear pain Cardiovascular Cardiovascular: Denies chest pain Respiratory/Chest Respiratory/Chest: Denies cough or dyspnea Gastrointestinal Gastrointestinal: Denies abdominal pain Genitourinary Genitourinary ED: Denies dysuria or hematuria Musculoskeletal Musculoskeletal: Denies arthralgias or back pain Integumentary Denies abscess or Abrasions Neurologic Neurologic: Denies headache(s) Psychiatric Psychiatric: Denies anxiety or depression Endocrine Endocrinology: Reports cold intolerance Hematologic/Lymphatic Hematologic/Lymphatic: Reports none Allergic/Immunologic Allergic/Immunologic ED: Denies mouth swelling, tongue swelling or urticaria EXAM Physical Exam Narrative Exam Narrative: 54-year-old female sitting upright in bed vital signs are stable afebrile does not look septic toxic. She is anxious emotionally upset but she is in no distress. Spouse at bedside. H EENT exam pupils round react to light. Moist mutes membranes. Neck nontender no lymphadenopathy. Lungs clear to auscultation bilaterally. Heart regular rhythm rate about 90 no murmur. Chest wall and ribs nontender. Abdomen soft nontender. Moving all 4 extremities. She is having tremors of both her upper extremities and head. Moving [id number]. Has her arms. 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 Normal dorsi plantarflexion. She is awake alert. She is answering questions following commands. Const Vital Signs: 09/08/25 18:30 Temperature 98.4 F Temperature Source Oral Pulse Rate 93 Respiratory Rate 16 Blood Pressure 148/98 H Blood Pressure Mean 114 Pulse Ox 99 Oxygen Delivery Method Room Air MDM MDM MDM Narrative Medical decision making narrative: Patient is diabetic we will check her blood sugar. I explained to the family there is no good way to diagnose tremors in the emergency department specifically the secondary to medications. She was given a dose of Ativan and reassessed. She does not need any blood work other than the BGT or imaging. Repeat exam patient is doing much better at 8 PM. Tremors are currently resolved she is relaxed after having Ativan. Her blood sugar was 184. There comfortably and discharged home with a small prescription for Ativan as needed. History & Record Review Discussion w/independent historian: Patient and Family Additional record(s) reviewed:: Prior outpatient record, Prior ED visit and Prior labs Discharge Plan Triage Chief Complaint: General Illness ED Provider: Alberto Bal Dx/Rx/DC Orders Clinical Impression: Tremor, History of diabetes mellitus, Anxiety Prescriptions: New lorazepam [Ativan] 1 mg tablet 1 mg PO DAILY PRN (Reason: anxiety) 7 Days Qty: 7 0RF No Action paliperidone 3 mg tablet extended release 24hr 3 mg PO QHS (DME) Dexcom G7 Sensor Device See Rx Instructions .Route Qty: 3 6RF Rx Instructions: daily (DME) pen needle, diabetic [BD Ultra-Fine Martine Pen Needle] 32 gauge x 5/32 needle See Rx Instructions .ROUTE .MEDSUPPLY Qty: 150 6RF Rx Instructions: 5 times daily Invega Sustenna 234 mg/1.5 mL syringe 234 mg IM Q30D trazodone 50 mg tablet 50 mg PO QHS PRN amlodipine 5 mg tablet 5 mg PO DAILY omeprazole 40 mg capsule,delayed release(DR/EC) 40 mg PO DAILY propranolol 10 mg tablet 10 mg PO BID duloxetine 40 mg capsule,delayed release(DR/EC) 40 mg PO BID Mounjaro 5 mg/0.5 mL pen injector 5 mg subcut QWEEK nitroglycerin 0.4 mg tablet, sublingual 0.4 mg sublingual Q5M PRN (Reason: chest pain) Qty: 15 0RF Rx Instructions: do not exceed 3 doses per episode Trelegy Ellipta 200-62.5-25 mcg blister with device 1 inh inhalation Q24H Qty: 60 5RF albuterol sulfate [Ventolin HFA] 90 mcg/actuation HFA aerosol inhaler 2 puff INHALATION Q6H PRN (Reason: Sob &/Or Wheezing) Qty: 18 0RF Primary Care Provider: Mis Cooley Referrals: Mis Cooley [facility] [Primary Care Provider, Family Practice] - As Needed Activity Restrictions/Additional Instructions: Ativan as needed and prescribed for tremors and/or anxiety. Follow-up with your primary care provider as needed. Print Language: Swazi Disposition Disposition: Home, Self Care
[2025-09-08 20:30] VITALS: BP 110/92; PULSE 90; RESP 15; O2SAT 99
[2025-09-08 22:00] VITALS: BP 128/62; PULSE 89; RESP 20; O2SAT 95
[2025-09-08 22:59] VITALS: BP 128/62; PULSE 89; RESP 20; TEMP 36.1; O2SAT 95
== END 2025-09-08 23:00 | disposition home or self-care (01) ==
PROVIDERS: Emergency Provider Emergency Medicine; PCP Nurse Practitioner Primary Care; Visit Provider Emergency Medicine
DX: R25.1 Tremor, unspecified (principal); J44.9 Chronic obstructive pulmonary disease, unspecified; E11.51 Type 2 diabetes mellitus with diabetic peripheral angiopathy without gangrene; I10 Essential (primary) hypertension; F41.9 Anxiety disorder, unspecified; F17.200 Nicotine dependence, unspecified, uncomplicated; Z79.85 Long-term (current) use of injectable non-insulin antidiabetic drugs; Z79.51 Long term (current) use of inhaled steroids; Z79.899 Other long term (current) drug therapy
CPT/HCPCS: 82962; 99284